=== PATIENT | female | born 1985 | race Caucasian/White ===

== ENCOUNTER 2019-04-11 17:51 | Emergency (ER) | payer OTHER, SELFPAY | END 2019-04-11 18:27 | disposition left against medical advice (07) | LOC: EXPCOLL 18:33 | PROVIDERS: Emergency Provider Registered Nurse | DX: Z53.21 Procedure and treatment not carried out due to patient leaving prior to being seen by health care provider (principal) | CPT/HCPCS: 99199 ==

== ENCOUNTER 2019-12-20 22:28 | Emergency (ER) | payer OTHER, SELFPAY ==
[2019-12-20 22:31] VITALS: BP 187/113; PULSE 105; RESP 20; TEMP 36.3; O2SAT 98
[2019-12-21] MEDS: HYDROcodone/acetaminophen (*CRX) 5-325 MG TABLET 1 TAB PO (00:03)
[2019-12-21] MEDS: DOXYCYCLINE HYCLATE 100 MG TABLET PO (01:18)
--- NOTE | 2019-12-21 01:26 | ED.SKABFB ---
HPI - Skin/Abscess/Foreign Bdy General Chief complaint: Skin/Abscess/Foreign Body Stated complaint: abcesses Time Seen by Provider: 12/20/19 23:27 History of Present Illness HPI narrative: Patient is a 34-year-old female who presents ER with left inguinal region abscess pain. Patient has history of cystic hidradenitis. She has had increased pain over the last 2 to 3 days. She typically has persistent drainage from multiple areas due to the severity of her cystic hidradenitis. At 1 point the past patient had been hospitalized for 4 months with wound vacs related to this. 2 weeks ago patient was supposed to have surgery to remove some of the cysts but she became Covid positive so the surgery has been delayed. This was supposed to be performed at [facility]. Patient has no fever or chills or sweats. No additional complaints. Related Data Allergies Allergy/AdvReac Type Severity Reaction Status Date / Time No Known Allergies Allergy Unknown Verified 12/21/19 00:21 Review of Systems Constitutional: Constitutional: Denies chills, Denies fever(s) and Denies weakness Integumentary/Breasts: Skin/Breast: Denies pruritus and Denies erythema Comments: multiple cystic abscess PMFSH Past Medical History Medical History (Updated 12/21/19 @ 01:39 by Chris Frank MD) Hidradenitis suppurativa Hypertension Polycystic ovarian syndrome Surgical History Surgical History (Updated 12/21/19 @ 01:31 by Chris Frank MD) H/O skin graft Multiple cyst excision which required additional skin grafting due to wound. Social History Social History (Updated 12/21/19 @ 01:31 by Chris Frank MD) Smoking status: Never smoker Exam Narrative: Exam Narrative: GENERAL: Well-appearing, morbidly obese, and in no acute distress. HEAD: Normocephalic, atraumatic. EXTREMITIES: Normal range of motion. No edema. SKIN: Warm, dry, no rash. NEURO: Alert and oriented x3. PSYCH: Normal mood and affect. Course Course Emergency Course: Significant drainage from each site. Packing placed. Doxycycline ordered for here. Discharge home. Recommend follow-up with her surgeon. Vital Signs Vital signs: Vital Signs Temperature 97.3 F L 12/20/19 22:31 Pulse Rate 105 H 12/20/19 22:31 Respiratory Rate 20 12/20/19 22:31 Blood Pressure 187/113 H 12/20/19 22:31 Pulse Oximetry 98 12/20/19 22:31 Temperature 97.3 F L 12/20/19 22:31 Pulse Rate 105 H 12/20/19 22:31 Respiratory Rate 20 12/20/19 22:31 Blood Pressure 187/113 H 12/20/19 22:31 Pulse Oximetry 98 12/20/19 22:31 Procedures Abscess I/D other: Date of Incision: 12/21/19 Time of Incision: 00:45 Side (if applicable): left (inguinal fold) Local Anesthetic: lidocaine 1% and with epi Technique: incised with #11 blade Packing used?: iodoform I&D Results: Pus and Blood Complications: pain inguinal fold: Date of Incision: 12/21/19 Time of Incision: 00:50 Side (if applicable): left Local Anesthetic: lidocaine 1% and with epi Technique: incised with #11 blade Packing used?: iodoform I&D Results: Pus and Blood Complications: pain Discharge Plan Discharge Clinical Impression: Abscess of skin or subcutaneous tissue Patient Disposition: Home, Self-Care Condition: Stable Instructions: Antibiotic Form, Abscess (ED) Additional Instructions: Return the ER if you have chest pain or shortness of breath, you cannot keep down food or water, you have fever over 100.4 ?F, you have additional concerns. Prescriptions: New doxycycline hyclate 100 mg tablet 100 mg PO BID Qty: 14 RF: 0 Follow-up/Referrals: PHYSICIAN NOT ON STAFF,NONSTAFF [Primary Care Provider] -
== END 2019-12-21 01:51 | disposition home or self-care (01) ==
PROVIDERS: Emergency Provider Emergency Medicine
DX: L02.214 Cutaneous abscess of groin (principal); Z86.19 Personal history of other infectious and parasitic diseases; I10 Essential (primary) hypertension; E28.2 Polycystic ovarian syndrome
CPT/HCPCS: 10061; 99283; A9270

== ENCOUNTER 2020-03-29 09:44 | Emergency (ER) | payer OTHER, SELFPAY ==
--- NOTE | ~2020-03-29 | CT_ITS ---
EXAMINATION: CT pelvis w con DATE: 03/29/2020 12:09 INDICATION: Left groin abscess. TECHNIQUE: Computed tomography (CT) of the pelvis was performed with 100 mL Omnipaque 350 intravenous contrast. Automated exposure control and iterative reconstruction technique were employed. The dose- length product was 1256.39 mGy-cm. COMPARISON: None FINDINGS: There are cysts in left kidney measuring up to 2.7 cm. There is an intrauterine device in e xpected position. There are no dilated loops of bowel. There is mild left inguinal lymphadenopathy, l ikely reactive. There is no free intraperitoneal fluid. There is subcutaneous fat stranding in the lo w abdomen, consistent with inflammation versus scarring. There is subcutaneous fat stranding under th e pannus on the left, consistent with inflammation. There is subcutaneous fat stranding in proximal l eft thigh posteromedially, consistent with inflammation. No abscess. There is mild lumbar spondylosis . IMPRESSION: 1. Multifocal subcutaneous inflammation. No abscess. Reviewed, dictated and finalized at location A. TECHNICIAN
[2020-03-29 09:49] VITALS: BP 185/76; PULSE 86; RESP 18; TEMP 36.9; O2SAT 100
--- NOTE | 2020-03-29 10:59 | ED.WOUNDLAC ---
HPI - Wound/Laceration General Chief Complaint: Wound/Laceration Stated Complaint: boils on thigh Time Seen by Provider: 03/29/20 10:09 Source: patient Mode of arrival: ambulatory Limitations: no limitations History of Present Illness HPI narrative: This is a 34 year old female that presents to the ER for abscess to the left thigh present for about a week. Reports history of HS for which she sees a Analysis Reporting Developer. Reports swelling and pain to an area in the left inner thigh. Reports some drainage from the area. Denies fever. Related Data Allergies Allergy/AdvReac Type Severity Reaction Status Date / Time No Known Allergies Allergy Unknown Verified 03/29/20 09:53 Review of Systems Review of Systems: Narrative: CONSTITUTIONAL: Denies fever SKIN: Reports abscess All systems reviewed & are unremarkable except as noted in HPI and below PMFSH Past Medical History Medical History (Updated 03/29/20 @ 12:40 by Melania Rodriguez PA-C) Hidradenitis suppurativa Hypertension Polycystic ovarian syndrome Surgical History Surgical History (Updated 12/21/19 @ 01:31 by Chris Frank MD) H/O skin graft Multiple cyst excision which required additional skin grafting due to wound. Social History Social History (Updated 12/21/19 @ 01:31 by Chris Frank MD) Smoking status: Never smoker Exam Narrative: Exam Narrative: GENERAL: Well-appearing, obese, and in no acute distress. HEAD: Normocephalic, atraumatic. EYES: EOMI. ABDOMEN: Soft, nontender, nondistended. The pannus has multiple areas of scarring and tracts from previous abscesses. Left side of the abdomen below the pannus with two small areas that are spontaneously draining, no surrounding cellulitis. Left groin with moderate area of erythema and edema with a couple spots that are actively draining with expression EXTREMITIES: Normal range of motion. No edema. SKIN: Warm, dry, no rash. NEURO: No focal deficits. Alert and oriented x3. PSYCH: Normal mood and affect Course Vital Signs Vital signs: Vital Signs Temperature 98.5 F 03/29/20 09:49 Pulse Rate 86 03/29/20 09:49 Respiratory Rate 18 03/29/20 09:49 Blood Pressure 185/76 H 03/29/20 09:49 Pulse Oximetry 100 03/29/20 09:49 Temperature 98.5 F 03/29/20 09:49 Pulse Rate 86 03/29/20 09:49 Respiratory Rate 18 03/29/20 09:49 Blood Pressure 185/76 H 03/29/20 09:49 Pulse Oximetry 100 03/29/20 09:49 MDM - Wound/Laceration MDM Narrative Medical decision making narrative: Patient presents to the emergency department with history of hidradenitis suppurativa with an area to the left thigh of swelling and pain. She is afebrile and nontoxic-appearing. Blood pressure elevated on arrival, likely at least partially due to pain. Patient reports she has been taking her blood pressure medications as prescribed. She is asymptomatic. CBC is without concerning findings. CRP mildly elevated to 2.1. ESR is normal. Metabolic panel with elevation in blood glucose to 281. I did send a hemoglobin A1c which was elevated to 9.4. This would be a new diagnosis of diabetes for the patient. CT scan of the pelvis shows multifocal subcutaneous inflammation, no abscess. Patient reports she had been taking Doxycycline over the last 5 days without improvement. Will be switched to Bactrim. I did speak to her Analysis Reporting Developer solar energy consultant and designer who will follow up in clinic in the next couple of days. Patient will also be started on Metformin and was instructed on the importance of follow up with her PCP for diabetes as well as her blood pressure. She was given warnings to return to the ER Lab Data Attestation: I reviewed the patient's lab results. Result diagrams: 03/29/20 11:04 03/29/20 11:04 Labs: Lab Results 03/29/20 03/29/20 03/29/20 Range/Units 11:04 11:04 11:04 WBC 7.7 (4.5-10.0) K/mm3 RBC 5.55 H (4.2-5.4) M/mm3 Hgb 14.1 (12.0-15.0) g/dL Hct 43.5 (37.0-47.0) %
[2020-03-29 11:10] LABS: Basophils Absolute Auto 0.1 K/mm3 (0.0-0.1); Basophils Percent Auto 0.8 % (0.2-1.2); Eosinophils Absolute Auto 0.3 K/mm3 (0-0.3); Eosinophils Percent Auto 3.9 % (0-4.4); Hematocrit 43.5 % (37.0-47.0); Hemoglobin 14.1 g/dL (12.0-15.0); Immature Granulocyte Absolute 0.05 K/mm3 (0.00-0.031); Immature Granulocyte Percent A 0.7 % (0-0.5); Lymphocytes Percent Auto 26.1 % (18.3-44.2); Mean Corpuscular HGB Conc 32.4 g/dl (32-36); Mean Corpuscular Hemoglobin 25.4 pg (26-34); Mean Corpuscular Volume 78.4 fl (80-100); Mean Platelet Volume 8.3 fl (7.4-10.4); Monocytes Absolute Auto 0.5 K/mm3 (0.1-0.6); Neutrophils Absolute Auto 4.7 K/mm3 (1.3-6.7); Neutrophils Percent Auto 61.5 % (45.5-73.1); Platelet Count Result 247 k/mm3 (150-375); Red Blood Count 5.55 M/mm3 (4.2-5.4); Red Cell Distribution Width 15.9 % (11.5-14.5); White Blood Count 7.7 K/mm3 (4.5-10.0)
[2020-03-29] MEDS: KETOROLAC 30 MG/ML VIAL (*BKC) IV PUSH (11:15)
[2020-03-29 11:35] LABS: Erythrocyte Sedimentation Rate 16 mm/hr (0-20)
[2020-03-29 11:44] LABS: Anion Gap 4 mmol/L (8-16); Blood Urea Nitrogen 5 mg/dL (7-17); Calcium 8.4 mg/dL (8.4-10.2); Carbon Dioxide 28 mmol/L (22-30); Chloride 102 mmol/L (98-107); Estimated CRCL calculation 186 ml/min; Estimated Glomerular Filt Rate > 60; Glucose 281 mg/dL (65-105); Potassium 4.1 mmol/L (3.4-5.0); Sodium 134 mmol/L (137-145)
[2020-03-29 12:01] LABS: CRP 2.1 mg/dL (<1.0)
[2020-03-29 12:02] LABS: Hemoglobin A1C 9.4 % (<5.7)
== END 2020-03-29 12:58 | disposition home or self-care (01) ==
PROVIDERS: Physician Assistant; Emergency Provider Emergency Medicine
DX: L73.2 Hidradenitis suppurativa (principal); E11.9 Type 2 diabetes mellitus without complications; I10 Essential (primary) hypertension; E28.2 Polycystic ovarian syndrome
CPT/HCPCS: 36415; 72193; 80048; 81025; 83036; 85025; 85652; 86140; 87070; 87077; 87147; 87186; 87205; 96374; 99284; J1885; Q9967

== ENCOUNTER 2020-08-10 19:40 | Emergency (ER) | payer OTHER, SELFPAY ==
[2020-08-10 19:46] VITALS: BP 159/106; PULSE 98; RESP 20; TEMP 36.8; O2SAT 98
--- NOTE | 2020-08-10 20:00 | ED.SKABFB ---
HPI - Skin/Abscess/Foreign Bdy General Chief complaint: Skin/Abscess/Foreign Body Stated complaint: Infected finger Time Seen by Provider: 08/10/20 19:55 History of Present Illness HPI narrative: 35-year-old female presents to [facility] with complaints of swelling and redness around the nail the distal aspect left fourth finger. Denies having a manicure, does not bite nails. Has full range of motion. Tenderness to the lateral aspect. Related Data Home Medications Medication Instructions Recorded Confirmed lisinopril-hydrochlorothiazide 1 tablet PO DAILY 08/10/20 08/10/20 Allergies Allergy/AdvReac Type Severity Reaction Status Date / Time No Known Allergies Allergy Unknown Verified 08/10/20 19:53 Review of Systems Review of Systems: All systems reviewed & are unremarkable except as noted in HPI and below Constitutional: Constitutional: Reports no additional constitutional complaints, Denies chills and Denies fever(s) Cardiovascular: Cardiovascular: Reports no additional cardiovascular complaints and Denies chest pain Respiratory: Respiratory: Reports no additional respiratory complaints, Denies cough and Denies dyspnea Musculoskeletal: Musculoskeletal: Reports no additional musculoskeletal complaints Integumentary/Breasts: Skin/Breast: Reports as per HPI and Reports erythema (Lateral aspect left ring finger with swelling, fluctuant area, pus noted) Neurologic: Reports system reviewed and no additional complaints, except as documented Psychiatric: Psychiatric: Reports no additional psychiatric complaints Allergic/Immunologic: Allergic/Immunologic: Reports no additional allergic/immunologic complaints [facility] Past Medical History Medical History (Updated 08/10/20 @ 20:02 by Tanya Iraheta) Hidradenitis suppurativa Hypertension Polycystic ovarian syndrome Surgical History Surgical History H/O skin graft Multiple cyst excision which required additional skin grafting due to wound. Social History Social History Smoking status: Never smoker Comments Reviewed Exam Const: General: healthy appearing, no acute distress and alert Nutritional Appearance: well nourished and obese morbidly obese Orientation/consciousness: patient oriented x3 Limitations: no limitations HENMT: Head: normal to inspection Neck: Neck: normal visual inspection, no lymphadenopathy and no meningeal signs Chest: Chest palpation & inspection: normal inspection of the chest Resp: Effort & Inspection: normal respiratory effort and no use of accessory muscles Auscultation: clear to auscultation bilaterally, no crackles, no rales, no rhonchi and no wheezes Cardio: Rate: regular rate Rhythm: regular rhythm : General: Yes no CVA tenderness Skin: General skin exam: normal color Other: Redness, swelling distal aspect left ring finger lateral Neuro: General: patient oriented x3, moves all extremities, no meningeal signs and no focal motor deficits Speech: normal speech Gait exam (Neuro): Normal gait present Extrem: General: normal to inspection and no pedal edema Psych: Appearance: grossly normal and well kempt Mental Status: mental status grossly normal Affect: normal affect Attitude: cooperative Thought content: Yes Normal thought content present Course Course Emergency Course: Discharge instructions reviewed with patient, as well as provided in writing per nursing staff. The instructions also include specific and strict return/GO TO THE ER as well as f/u information. All questions have been answered, and the patient deny any further questions with discharge and discharge plan. Vital Signs Vital signs: Vital Signs Temperature 98.2 F 08/10/20 19:46 Pulse Rate 98 08/10/20 19:46 Respiratory Rate 20 08/10/20 19:46 Blood Pressure 159/106 H 08/10/20 19:46 Pulse Oximetry 98 08/10/20 19:46 Temperature 98
== END 2020-08-10 20:23 | disposition home or self-care (01) ==
PROVIDERS: Emergency Provider Nurse Practitioner
DX: L03.012 Cellulitis of left finger (principal); I10 Essential (primary) hypertension; E28.2 Polycystic ovarian syndrome
CPT/HCPCS: 26010; 87070; 87075; 87076; 87147; 87185; 87186; 87205; 99213; G0463

== ENCOUNTER 2020-09-24 12:22 | Emergency (ER) | payer OTHER, SELFPAY ==
[2020-09-24 12:34] VITALS: BP 150/101; PULSE 112; RESP 20; TEMP 37.6; O2SAT 99
--- NOTE | 2020-09-24 13:03 | ED.NAVMDI ---
HPI - Nausea/Vomiting/Diarrhea General Chief complaint: Nausea/Vomiting/Diarrhea Stated complaint: abd pain Source: patient and RN notes reviewed Mode of arrival: ambulatory History of Present Illness HPI Narrative: This is a 35-year-old female who presented to urgent care with complaints of nausea vomiting and diarrhea that started yesterday. Patient notes that she did take Imodium at home for her diarrhea. Her blood pressure is elevated she notes that she takes her medication at night has been unable to keep her medication down due to her nausea and vomiting. She has been vaccinated he denies any exposure to Covid. The patient denies SOB, CP, palpitation, extremity numbness, lightheadedness, dizziness, constipation, diarrhea, abdominal pain, chills, or fever. Related Data Home Medications Medication Instructions Recorded Confirmed lisinopril-hydrochlorothiazide 1 tablet PO DAILY 08/10/20 08/10/20 Allergies Allergy/AdvReac Type Severity Reaction Status Date / Time No Known Allergies Allergy Unknown Verified 08/10/20 19:53 Review of Systems Review of Systems: A 14 organ system Review of Systems was performed and pertinent positives included in the HPI, otherwise remaining ROS is negative. COUNTS INCLUDE 234 BEDS AT THE [facility] Past Medical History Medical History (Updated 09/24/20 @ 13:02 by ZINA Navarro) Hidradenitis suppurativa Hypertension Polycystic ovarian syndrome Surgical History Surgical History H/O skin graft Multiple cyst excision which required additional skin grafting due to wound. Family History Family History (Updated 09/24/20 @ 13:04 by ZINA Navarro) Other Family history non-contributory Social History Social History Smoking status: Never smoker Exam Narrative: GENERAL: Morbidly obese, in no apparent distress. HEAD: normocephalic, atraumatic. EYES: PERRL. Sclera clear/white. Vision is grossly intact. EARS: External ears normal, auditory canals clear and without drainage, TMs normal without perforation. Hearing grossly intact. NOSE: External nose normal with no obvious nasal discharge, nares without redness, no rhinorrhea. THROAT: Mucous membranes moist, posterior pharynx clear. NECK: Neck supple, non-tender without lymphadenopathy, masses or thyromegaly. CARDIOVASCULAR: Regular rate and rhythm without murmurs, gallops, or rubs. RESPIRATORY: Clear to auscultation. Breath sounds equal bilaterally. No wheezes, rales, or rhonchi. GASTROINTESTINAL: Abdomen soft, non-tender, nondistended. Bowel sounds are active. No hepato-splenomegaly, or palpable masses. No guarding. SKIN: warm, intact with no suspicious lesions or rash, good texture and turgor. NEURO: awake, alert, and oriented to person, place and time. There were no obvious focal neurologic abnormalities. Steady gait EXTREMITIES: Normal range of motion. No edema. No calf tenderness. Negative Homans sign bilaterally. BACK: Nontender without deformity or crepitance. No flank tenderness. Course Course Emergency Course: Patient will discharge home with Zofran instructed to use Imodium stay hydrated to prevent dehydration Vital Signs Vital signs: Vital Signs Temperature 99.7 F H 09/24/20 12:34 Pulse Rate 112 H 09/24/20 12:34 Respiratory Rate 20 09/24/20 12:34 Blood Pressure 150/101 H 09/24/20 12:34 Pulse Oximetry 99 09/24/20 12:34 Temperature 99.7 F H 09/24/20 12:34 Pulse Rate 112 H 09/24/20 12:34 Respiratory Rate 20 09/24/20 12:34 Blood Pressure 150/101 H 09/24/20 12:34 Pulse Oximetry 99 09/24/20 12:34 MDM - Nausea/Vomiting/Diarrhea Differential Diagnosis Differential diagnosis: Likely traveler's diarrhea, food poisoning, gastroenteritis and other (Viral gastroenteritis) Discharge Plan Discharge Clinical Impression: Gastroenteritis Patient Disposition: Home, Self-Care Condition: Stable Instruct
== END 2020-09-24 13:19 | disposition home or self-care (01) ==
PROVIDERS: Emergency Provider Nurse Practitioner
DX: K52.9 Noninfective gastroenteritis and colitis, unspecified (principal); I10 Essential (primary) hypertension; E28.2 Polycystic ovarian syndrome
CPT/HCPCS: 99213; G0463

== ENCOUNTER 2021-06-14 02:15 | Emergency (ER) | payer OTHER, SELFPAY ==
[2021-06-14] VITALS (7 sets, daily range): BP systolic 119–138; BP diastolic 79–86; PULSE 92–108; RESP 16–22; TEMP 37.1; O2SAT 85–100
--- NOTE | ~2021-06-14 | XR_ITS ---
EXAMINATION: XR chest 2V DATE: 06/14/2021 02:58 INDICATION: Chest pain. Chest pressure. TECHNIQUE: Frontal and lateral views of the chest were obtained. COMPARISON: Chest 2 views 04/04/2011 FINDINGS: A calcified left lung nodule is consistent with old granulomatous disease. No pleural effus ion or pneumothorax. The heart size is normal. IMPRESSION: 1. No acute cardiopulmonary disease. Reviewed, dictated and finalized at location A.
--- NOTE | 2021-06-14 02:20 | ECG_ITS ---
Measurements Intervals [place] Rate: 103 P: 0 NE: 114 QRS: 57 QRSD: 105 T: 11 QT: 355 QTc: 466 Interpretive Statements SINUS TACHYCARDIA WITH SHORT NE INTERVAL SMALL NONDIAGNOSTIC INFERIOR Q-WAVES OTHERWISE NORMAL ECG Electronically Signed On 06-14-2021 16:17:48 CDT by Caleb Roach M.D.
[2021-06-14 02:30] LABS: Basophils Absolute Auto 0.1 K/mm3 (0.0-0.1); Eosinophils Absolute Auto 0.4 K/mm3 (0-0.3); Eosinophils Percent Auto 3.6 % (0-4.4); Hematocrit 39.5 % (37.0-47.0); Hemoglobin 12.6 g/dL (12.0-15.0); Immature Granulocyte Absolute 0.14 K/mm3 (0.00-0.031); Immature Granulocyte Percent A 1.4 % (0-0.5); Lymphocytes Absolute Auto 3.26 K/mm3 (0.9-3.2); Lymphocytes Percent Auto 32.2 % (18.3-44.2); Mean Corpuscular HGB Conc 31.9 g/dl (32-36); Mean Corpuscular Hemoglobin 26.3 pg (26-34); Mean Corpuscular Volume 82.5 fl (80-100); Mean Platelet Volume 8.5 fl (7.4-10.4); Monocytes Absolute Auto 0.8 K/mm3 (0.1-0.6); Monocytes Percent Auto 7.7 % (2.6-8.5); Neutrophils Absolute Auto 5.5 K/mm3 (1.3-6.7); Neutrophils Percent Auto 54.1 % (45.5-73.1); Platelet Count Result 308 k/mm3 (150-375); Red Blood Count 4.79 M/mm3 (4.2-5.4); Red Cell Distribution Width 16.8 % (11.5-14.5); White Blood Count 10.1 K/mm3 (4.5-10.0)
[2021-06-14 02:42] LABS: Partial Thromboplastin Time 28.5 SECONDS (22.3-36.8); Prothrombin Time 13.1 Seconds (11.1-14.7)
[2021-06-14 02:50] LABS: Alanine Aminotransferase 58 U/L (4-35); Albumin Level 3.9 g/dL (3.5-5.1); Alkaline Phosphatase 43 U/L (38-126); Anion Gap 8 mmol/L (8-16); Aspartate Amino Transferase 58 U/L (14-36); Bilirubin,Total 0.7 mg/dL (0.2-1.3); Blood Urea Nitrogen 13 mg/dL (7-17); Calcium 8.7 mg/dL (8.4-10.2); Carbon Dioxide 29 mmol/L (22-30); Chloride 97 mmol/L (98-107); Estimated CRCL calculation 147 ml/min; Estimated Glomerular Filt Rate > 60; Glucose 337 mg/dL (65-110); Lipase 487 U/L (23-300); Potassium 3.9 mmol/L (3.4-5.0); Sodium 134 mmol/L (137-145)
[2021-06-14 02:54] LABS: Troponin I < 0.012 ng/mL (0.000-0.034)
[2021-06-14 05:46] LABS: Troponin I < 0.012 ng/mL (0.000-0.034)
--- NOTE | 2021-06-14 06:41 | ED.CHESTPAIN ---
HPI - Chest Pain General Chief Complaint: Chest Pain Stated Complaint: CHEST PAIN, N/V Time Seen by Provider: 06/14/21 02:36 History of Present Illness HPI narrative: Patient is a 36-year-old female who presents ER with chest pain. Central and sharp. Began at midnight. Associated with some nausea and vomiting. Thinks it may be related to the fact that she has some pain at her left labia related to her cystic hidradenitis. She reports some drainage from the area. No fevers or chills or sweats. Related Data Home Medications Medication Instructions Recorded Confirmed lisinopril-hydrochlorothiazide 1 tablet PO DAILY 08/10/20 08/10/20 Allergies Allergy/AdvReac Type Severity Reaction Status Date / Time No Known Allergies Allergy Unknown Verified 08/10/20 19:53 Review of Systems Review of Systems: All systems reviewed & are unremarkable except as noted in HPI and below Constitutional: Constitutional: Denies chills, Denies fever(s) and Denies weakness ENT: Denies nasal congestion and Denies sore throat Cardiovascular: Cardiovascular: Reports chest pain, Denies rapid heart rate and Denies radiating jaw, neck or arm pain Respiratory: Respiratory: Denies cough, Denies dyspnea and Denies wheezing Gastrointestinal: Gastrointestinal: Denies abdominal pain, Reports nausea and Reports vomiting Integumentary/Breasts: Comments: draining cyst PMFSH Past Medical History Medical History (Updated 06/14/21 @ 06:48 by Chris Frank MD) Hidradenitis suppurativa Hypertension Polycystic ovarian syndrome Surgical History Surgical History H/O skin graft Multiple cyst excision which required additional skin grafting due to wound. Family History Family History (Updated 09/24/20 @ 13:04 by ZINA Navarro) Other Family history non-contributory Social History Social History Smoking status: Never smoker Exam Narrative: GENERAL: Well-appearing, morbidly obese, and in no acute distress. HEAD: Normocephalic, atraumatic. ENT: Mucous membranes moist. CHEST: Clear to auscultation. No respiratory distress. HEART: Regular rate and rhythm. Normal peripheral pulses. : Area where there is a draining cyst left labia. No surrounding cellulitis or drainage at this time. EXTREMITIES: Normal range of motion. No edema. SKIN: Warm, dry, no rash. NEURO: Alert and oriented x3. PSYCH: Normal mood and affect. Course Course Emergency Course: No chest pain. Tropes negative x2. No need for intervention regarding her cyst. Vital Signs Vital signs: Vital Signs Temperature 98.7 F 06/14/21 02:09 Pulse Rate 105 H 06/14/21 02:09 Respiratory Rate 19 06/14/21 02:09 Blood Pressure 119/79 06/14/21 02:09 Pulse Oximetry 97 06/14/21 02:09 Temperature 98.7 F 06/14/21 02:09 Pulse Rate 92 06/14/21 06:09 Respiratory Rate 19 06/14/21 06:09 Blood Pressure 135/86 06/14/21 04:51 Pulse Oximetry 96 06/14/21 06:09 MDM - Chest Pain Lab Data Result diagrams: 06/14/21 02:21 06/14/21 02:21 Labs: Lab Results 06/14/21 06/14/21 06/14/21 Range/Units 02:21 02:21 02:21 WBC 10.1 H (4.5-10.0) K/mm3 RBC 4.79 (4.2-5.4) M/mm3 Hgb 12.6 (12.0-15.0) g/dL Hct 39.5 (37.0-47.0) % MCV 82.5 (80-100) fl MCH 26.3 (26-34) pg MCHC 31.9 L (32-36) g/dl RDW 16.8 H (11.5-14.5) % Plt Count 308 (150-375) k/mm3 MPV 8.5 (7.4-10.4) fl Immature Gran % (Auto) 1.4 H (0-0.5) % Neut % (Auto) 54.1 (45.5-73.1) % Lymph % (Auto) 32.2 (18.3-44.2) % [place] % (Auto) 7.7 (2.6-8.5) % Eos % (Auto) 3.6 (0-4.4) % Baso % (Auto) 1.0 (0.2-1.2) % Lymph # (Auto) 3.26 H (0.9-3.2) K/mm3 [place] # (Auto) 0.8 H (0.1-0.6) K/mm3 Eos # (Auto) 0.4 H (0-0.3) K/mm3 Baso # (Auto) 0.1 (0.0-0.1) K/mm3 Abs Immat Gran (auto)
== END 2021-06-14 06:58 | disposition home or self-care (01) ==
PROVIDERS: Emergency Provider Emergency Medicine
DX: R07.89 Other chest pain (principal); I10 Essential (primary) hypertension; E28.2 Polycystic ovarian syndrome; R94.31 Abnormal electrocardiogram [ECG] [EKG]; R00.0 Tachycardia, unspecified
CPT/HCPCS: 36415; 71046; 80053; 83690; 84484; 85025; 85610; 85730; 93005; 99284

== ENCOUNTER 2021-12-20 17:59 | Emergency (ER) | payer OTHER, SELFPAY ==
[2021-12-20 18:14] VITALS: BP 154/104; PULSE 99; RESP 16; TEMP 37.4; O2SAT 97
[2021-12-20 18:17] VITALS: BP 154/104; PULSE 99; RESP 16; TEMP 37.4; O2SAT 97
--- NOTE | 2021-12-20 18:32 | ED.URI ---
HPI - URI/Sore Throat General Chief Complaint: Upper Respiratory Infection Stated Complaint: Sinus Time Seen by Provider: 12/20/21 18:45 Source: patient and RN notes reviewed Mode of arrival: ambulatory Limitations: no limitations History of Present Illness HPI Narrative: 36-year-old female presents to the [facility] with complaints of sinus congestion for almost 1 week. Denies any other symptoms. Denies fevers. Patient denies cough, body aches. Related Data Home Medications Medication Instructions Recorded Confirmed lisinopril 20 1 tablet PO DAILY 08/10/20 08/10/20 mg-hydrochlorothiazide 12.5 mg tablet Allergies Allergy/AdvReac Type Severity Reaction Status Date / Time No Known Allergies Allergy Unknown Verified 12/20/21 18:10 Review of Systems Review of Systems: All systems reviewed & are unremarkable except as noted in HPI and below Constitutional: Constitutional: Reports no additional constitutional complaints, Denies chills and Denies fever(s) Eyes: Eyes: Reports no additional eye complaints ENT: Reports as per HPI and Reports nasal congestion Cardiovascular: Cardiovascular: Reports no additional cardiovascular complaints Respiratory: Respiratory: Reports no additional respiratory complaints Gastrointestinal: Gastrointestinal: Reports no additional gastrointestinal complaints Musculoskeletal: Musculoskeletal: Reports no additional musculoskeletal complaints Integumentary/Breasts: Skin/Breast: Reports system reviewed and no additional complaints, except as docu Neurologic: Reports system reviewed and no additional complaints, except as documented Psychiatric: Psychiatric: Reports no additional psychiatric complaints Allergic/Immunologic: Allergic/Immunologic: Reports no additional allergic/immunologic complaints [facility] Past Medical History Medical History Hidradenitis suppurativa Hypertension Polycystic ovarian syndrome Surgical History Surgical History H/O skin graft Multiple cyst excision which required additional skin grafting due to wound. Family History Family History Other Family history non-contributory Social History Social History Smoking status: Never smoker Comments At the time of my signature, I reviewed and agree with the nursing past medical, surgical, social, and family history. There is no relevant family history pertinent to the patient complaint. Exam Const: General: healthy appearing, no acute distress, alert and well nourished Nutritional Appearance: well nourished and obese morbidly obese Orientation/consciousness: patient oriented x3 Limitations: no limitations HENMT: Head: normal to inspection Ears: external ears normal, TM's normal bilaterally and EAC's normal Face/Nose/Sinus: Normal external nose present and Normal nares present Face and sinus: normal facial exam and sinuses nontender Mouth: Yes Normal oral and palatal mucosa present, Yes lip normal and Yes moist mucous membranes Throat: posterior oropharynx normal and uvula midline Eyes: General: appearance normal, both eyes and all related structures Conjunctivae: conjunctivae normal Pupils: Equal, round and reactive pupils present Neck: Neck: normal visual inspection, no lymphadenopathy and no meningeal signs Chest: Chest palpation & inspection: normal inspection of the chest Resp: Effort & Inspection: normal respiratory effort and no use of accessory muscles Auscultation: clear to auscultation bilaterally, no crackles, no rales, no rhonchi and no wheezes Cardio: Rate: regular rate Rhythm: regular rhythm Skin: General skin exam: normal color Rashes: no rashes Wounds: no wounds Neuro: General: patient oriented x3, moves all extremities, no meningeal signs and no f
== END 2021-12-20 19:05 | disposition home or self-care (01) ==
PROVIDERS: Emergency Provider Nurse Practitioner; PCP Hospitalist
DX: J01.80 Other acute sinusitis (principal); I10 Essential (primary) hypertension
CPT/HCPCS: 87804; 99213; G0463

== ENCOUNTER 2023-05-17 19:47 | Emergency (ER) | payer BC, SELFPAY ==
--- NOTE | 2023-05-17 19:57 | ED.GENADULT ---
HPI - General Adult General Chief complaint: Skin/Abscess/Foreign Body Stated complaint: abcess Time Seen by Provider: 05/17/23 19:56 Source: patient Mode of arrival: ambulatory Limitations: no limitations History of Present Illness HPI narrative: This is a 37-year-old female who presents to the ED with chief complaint of possible abscesses to the lower abdomen. Reports history of hidradenitis suppurativa and has had to have abscesses drained the past. Reports she was seen a month ago and started on antibiotics. She took a full course of doxycycline with minimal relief. She has seen surgery in the past for HS. States the left lower abdomen/ groin abscess is worse, but there is pain right as well. Denies fevers, chills, nausea, vomiting red streaking or other rash. Related Data Home Medications Medication Instructions Recorded Confirmed lisinopril 20 1 tablet PO DAILY 08/10/20 08/10/20 mg-hydrochlorothiazide 12.5 mg tablet Allergies Allergy/AdvReac Type Severity Reaction Status Date / Time No Known Allergies Allergy Unknown Verified 05/17/23 20:01 Review of Systems Review of Systems: All systems as dictated in [facility] Past Medical History Medical History Hidradenitis suppurativa Hypertension Polycystic ovarian syndrome Surgical History Surgical History H/O skin graft Multiple cyst excision which required additional skin grafting due to wound. Family History Family History Other Family history non-contributory Social History Social History Smoking status: Never smoker Exam Narrative: GENERAL: Well-appearing, well-nourished, and in no acute distress. morbidly obese. HEAD: Normocephalic, atraumatic. EYES: PERRLA and EOMI. ENT: Nares clear, no rhinorrhea or epistaxis. Mucous membranes moist. Oropharynx without tonsillar hypertrophy exudate or other lesions. NECK: Supple. No adenopathy or masses. CHEST: No respiratory distress. Clear to auscultation. No wheezes rales or rhonchi HEART: Regular rate and rhythm. No murmur heard. Normal peripheral pulses. ABDOMEN: Soft, nontender, nondistended, normal active bowel sounds. MSK: Normal range of motion. No edema. SKIN: Focal erythematous fluid collection noted to the left pannus. Minimal surrounding erythema. There is an area purulent drainage noted. Other focal erythematous region to the right lateral abdomen near the pannus but no obvious fluid collection. No induration. No drainage. Small 2 cm x 1 cm area of open sore to the central pannus. No drainage, purulence or erythema noted. NEURO: Alert and oriented x3. No focal deficits. PSYCH: Normal mood and affect. Course Vital Signs Vital signs: Vital Signs Temperature 98.3 F 05/17/23 19:58 Pulse Rate 100 05/17/23 19:58 Respiratory Rate 20 05/17/23 19:58 Blood Pressure 162/114 H 05/17/23 19:58 Pulse Oximetry 98 05/17/23 19:58 Oxygen Delivery Room Air 05/17/23 19:58 Temperature 98.3 F 05/17/23 19:58 Pulse Rate 97 05/17/23 20:51 Respiratory Rate 20 05/17/23 20:51 Blood Pressure 152/99 H 05/17/23 20:51 Pulse Oximetry 97 05/17/23 20:51 Oxygen Delivery Room Air 05/17/23 19:58 Procedures Abscess I/D abdomen: Date of Incision: 05/17/23 Time of Incision: 20:50 Side (if applicable): right Sedation/analgesia: none Local Anesthetic: lidocaine 1% and with epi Amount of anesthesia used (mL): 2 Technique: incised with #11 blade Amount of fluid expressed (mL): 5 Irrigation: No Packing used?: none I&D Results: Pus and Blood Complications: pain Medical Decision Making MDM Narrative Medical decision making narrative: this is a
[2023-05-17 19:58] VITALS: BP 162/114; PULSE 100; RESP 20; TEMP 36.8; O2SAT 98
[2023-05-17] MEDS: LIDO 1%/EPINEPHRINE 1:100,000 20 ML VIAL (20:13)
[2023-05-17] MEDS: HYDROcodone/acetaminophen (*CRX) 5-325 MG TABLET 1 TAB PO (20:13)
[2023-05-17 20:51] VITALS: BP 152/99; PULSE 97; RESP 20; O2SAT 97
== END 2023-05-17 20:56 | disposition home or self-care (01) ==
PROVIDERS: Emergency Provider Physician Assistant; PCP Hospitalist
DX: L02.211 Cutaneous abscess of abdominal wall (principal); L73.2 Hidradenitis suppurativa; E28.2 Polycystic ovarian syndrome; I10 Essential (primary) hypertension
CPT/HCPCS: 10060; 99283; A9270

== ENCOUNTER 2024-08-20 18:45 | Emergency (ER) | payer OTHER, SELFPAY ==
[2024-08-20] VITALS (18 sets, daily range): BP systolic 185–239; BP diastolic 109–156; PULSE 100–128; RESP 14–35; TEMP 36.6–37.1; O2SAT 95–100
--- NOTE | ~2024-08-20 | XR_ITS ---
XR chest 2V Ordering provider: Crhis Frank MD History: 39 years Female with . htn and tachycardic IN TRIAGE . Comparison: None. FINDINGS: MEDIASTINUM: The cardiac silhouette is not enlarged. LUNGS: No infiltrates, effusions or pneumothorax. OTHER: No free air under the diaphragm. IMPRESSION: No acute cardiopulmonary pathology. Reviewed, dictated and finalized at location A.
--- OUTSIDE RECORDS SUMMARY | 2024-08-20 18:47 | XMS_ITS | Encounter Summary ---
Author Organization [facility] Address [address] [place] [address] Care Team Providers Care Wooden Tank Erector Name Role Phone Miguel A Kan MD Primary Care Provider [phone] Encounter Details Date Type Department Care Team (Latest Contact Info) Description 12/03/2005 Outpatient Historical [facility] Ballesteros Pilonidal Cyst with Abscess (Primary Dx) Social History Tobacco Use Types Packs/Day Years Used Date Smoking Tobacco: Never Assessed Comments Unknown Sex and Gender Information Value Date Recorded Sex Assigned at Not on file Legal Sex Female 4:18 AM ACCOUNT AUDITOR Gender Identity Not on file Sexual Orientation Not on file documented as of this encounter Plan of Treatment Not on file documented as of this encounter Procedures Procedure Name Priority Date/Time Associated Diagnosis Comments CBC WITH DIFFERENTIAL Routine 12/03/2005 9:49 AM CDT CBC WITH DIFFERENTIAL Routine 12/03/2005 9:49 AM CDT HCG QUANTITATIVE, BLOOD Routine 12/03/2005 9:49 AM CDT documented in this encounter Results * HCG QUANTITATIVE, BLOOD (12/03/2005 9:49 AM CDT) HCG QUANT, BLOOD <5 0 - 5 mIU/mL INTERFACE SYSTEM Comment: Result of 5 - 25 mIU/mL is indeterminant for , repeat of test recommemded in 48 hours. Reference Range: Gestational Age: 3 Weeks 5.8 - 71.2 mIU/mL 4 Weeks 9.5 - 750 mIU/mL 5 Weeks 217 - 7138 mIU/mL 6 Weeks 158 - 31,795 mIU/mL 7 Weeks 3697 - 163,563 mIU/mL 8 Weeks 32,065 - 149,571 mIU/mL 9 Weeks 63,803 - 151,410 mIU/mL 10 Weeks 46,509 - 186,977 mIU/mL 12 Weeks 27,832 - 210,612 mIU/mL 14 Weeks 13,950 - 62,530 mIU/mL 15 Weeks 12,039 - 70,971 mIU/mL 16 Weeks 9040 - 56,451 mIU/mL 17 Weeks 8175 - 55,868 mIU/mL 18 Weeks 8099 - 58,176 mIU/mL Heterophile antibodies and other interfering substances in the serum of some patients may cause a false-positive result in this assay. Before making a diagnosis of malignancy or etopic ,the result of this test should be confirmed with a urine HCG test and correlated with other clinical evidence. 12/03/2005 9:49 AM CDT [facility] CHEMISTRY ORDERABLES Final Resul t INTERFACE SYSTEM Refer to clinic/hospital department * (ABNORMAL) CBC WITH DIFFERENTIAL (12/03/2005 9:49 AM CDT) NEUTROPHILS 68 45 - 70 % INTERFAC E SYSTEM LYMPHOCYTES 20 16 - 45 % INTERFAC E SYSTEM MONOCYTES 10 3 - 13 % INTERFACE SYSTEM EOSINOPHILS 2 0 - 7 % INTERFAC E SYSTEM BASOPHILS 1 0 - 2 % INTERFACE SYSTEM NEUTROPHIL ABSOLUTE 8.71(H) 1.90 - 7.00 K/uL INTERFACE SYSTEM LYMPHOCYTE ABSOLUTE 2.58 0.70 - 4.50 K/uL INTERFACE SYSTEM MONOCYTE ABSOLUTE 1.30 0.10 - 1.30 K/uL INTERFACE SYSTEM EOSINOPHIL ABSOLUTE 0.25 0.00 - 0.70 K/uL INTERFACE SYSTEM BASOPHILS ABSOLUTE 0.07 0.00 - 0.20 K/uL INTERFACE SYSTEM 12/03/2005 9:49 AM CDT us Jeanne Goldman MD HEMATOLOGY ORDERABLES Final Re sult INTERFACE SYSTEM Refer to clinic/hospital department * (ABNORMAL) CBC WITH DIFFERENTIAL (12/03/2005 9:49 AM CDT) WBC 12.9(H) 4.0 - 9.8 K/uL INTERFACE SYSTEM RBC 4.59 3.90 - 4.90 M/uL INTERFACE SYSTEM HEMOGLOBIN 9.1(L) 11.8 - 14.8 g/dL INTERFACE SYSTEM HEMATOCRIT 30.6(L) 35.5 - 44.0 % INTERFACE SYSTEM MCV 66.7(L) 82.0 - 99.0 fL INTERFACE SYSTEM MCH 19.8(L) 27.2 - 32.6 pg INTERFACE SYSTEM MCHC 29.7(L) 31.5 - 35.5 % INTERFACE SYSTEM RDW 17.6(H) 11.5 - 14.5 % INTERFACE SYSTEM RDW-STDEV 42.9 37.1 - 48.7 fL INTERFACE SYSTEM PLATELETS 315 140 - 350 K/uL INTERFACE SYSTEM MPV 8.5(L) 9.3 - 12.4 fL INTERFACE SYSTEM 12/03/2005 9:49 AM CDT Jeanne Goldman MD HEMATOLOGY ORDERABLES Final Re sult Performing Organization Address City/[facility] Co de Phone Number INTERFACE SYSTEM Refer to clinic/hospital department documented in this encounter Visit Diagnoses Diagnosis Pilonidal cyst with abscess- Primary documented in this encounter Care Teams Wooden Tank Erector Relationship Specialty Start Date End Date Miguel A Kan MD [address] [place] [id number] PCP - General Internal Medicine 04/26/11 05/02/16 documented as of this encounter
--- OUTSIDE RECORDS SUMMARY | 2024-08-20 18:47 | XMS_ITS | Encounter Summary ---
Author Organization [facility] Address [address] [place] [address] Care Team Providers Care Boom Crane Operator Name Role Phone Miguel A Kan MD Primary Care Provider [phone] Encounter Details Date Type Department Care Team (Latest Contact Info) Description 04/28/2003 Outpatient Historical [facility], [address] [place] [address] [facility] [address] [place] [address] [facility] USE MEDICATN (Primary Dx) Social History Tobacco Use Types Packs/Day Years Used Date Smoking Tobacco: Never Assessed Comments Unknown Sex and Gender Information Value Date Recorded Sex Assigned at Not on file Legal Sex Female 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
--- OUTSIDE RECORDS SUMMARY | 2024-08-20 18:47 | XMS_ITS | Clinical Summary ---
Author Organization [facility] [employer] Address [facility] [place] [address] Care Team Providers Care Campus President Name Role Phone Unavailable Primary Care Provider Unavailabl e Source Comments [facility] [employer],non-owned Affiliates and Associated Physician Practices is amultiple site organization consisting of ambulatory clinics and hospital sitesin [place], [place], [place] and [place]. This disclosure is being madepursuant to the Care Everywhere program and may not contain all information available regarding this patient. Last updated 17.[facility] [employer] Allergies No known active allergies Medications * Be aware that medications may not be up to date on this document. Alwaysverify current medications with the patient. montelukast (SINGULAIR) 10 MG tabletIndicatio ns:SOB (shortness of breath) Take 10 mg by mouth at bedtime. Active Albuterol Sulfate (VENTOLIN HFA IN)Indications: SOB (shortness of breath) Inhale by mouth. Ac tive DiphenhydrAMINE HCl (BENADRYL ALLERGY PO)Indications: SOB (shortness of breath) Take by mouth. Acti ve levonorgestrel (MIRENA, 52 MG,) 20 MCG/24HR IUD 1 device by Intrauterine route as directed Active lisinopril (PRINIVIL;ZESTR IL) 5 MG tablet 8 Active cephalexin (KEFLEX) 500 MG capsule 8 Active HYDROcodone-jamin taminophen (NORCO) 5-325 MG tablet 8 Active Active Problems No known active problems Family History Medical History Relation Name Comments CAD (Coronary Artery Disease) Maternal Grandmother Hypertension Maternal Grandmother Hypertension Mother CAD (Coronary Artery Disease) Paternal Grandmother Relation Name Status Comments Maternal Grandmother Mother Paternal Grandmother Social History Tobacco Use Types Packs/Day Years Used Date Smoking Tobacco: Never Smokeless Tobacco: Never Alcohol Use Standard Drinks/Week Comments Yes 0 (1 standard drink = 0.6 oz pur e alcohol) rarely Comments No Sex and Gender Information Value Date Recorded Sex Assigned at Not on file Legal Sex Female 5:33 AM MACHINIST MATE Gender Identity Not on file Sexual Orientation Not on file Last Filed Vital Signs Vital Sign Reading Time Taken Comments Blood Pressure 163/107 03/16/2017 12:49 PM MACHINIST MATE Pulse 97 03/16/2017 12:49 PM MACHINIST MATE Temperature 36.6 C (97.8 F) 06/25/2014 2:48 PM CDT Respiratory Rate 22 06/25/2014 2:48 PM CDT Oxygen Saturation 93% 06/25/2014 2:48 PM CDT Inhaled Oxygen Concentration - - Weight 143.4 kg (316 lb 3.2 oz) 03/16/2017 1:26 PM MACHINIST MATE Height 163.8 cm (5' 4.5) 03/16/2017 1:26 PM MACHINIST MATE Body Mass Index 53.44 03/16/2017 1:26 PM MACHINIST MATE Plan of Treatment Health Maintenance Due Date Last Done Comments LIPID TESTING 1984 MAMMOGRAM 1984 HIV SCREENING 06/01/1999 HEPATITIS C SCREENING 05/27/2002 DTAP/TDAP/TD VACCINES (1 - Tdap) 06/01/2003 HEPATITIS B VACCINE (1 of 3 - 19+ 3-dose series) 06/01/2003 COVID-19 VACCINE ( - 2023-2 5 season) 2023 DEPRESSION SCREENING 02/21/2024 INFLUENZA VACCINE (Season Ended) 2024 ZOSTER VACCINE (1 of 2) 2034 HIB VACCINE Aged Out No longer eligi ble based on patient's age to complete this topic HPV VACCINE Aged Out No longer eligi ble based on patient's age to complete this topic MENINGOCOCCAL (Group B) VACC INE SHARED DECISION-MAKING Aged Out No longer eligibl e based on patient's age to complete this topic MENINGOCOCCAL GROUPS A/C/Y/W VACCINE Aged Out No longer eligible b ased on patient's age to complete this topic PNEUMOCOCCAL VACCINE Aged Out No long er eligible based on patient's age to complete this topic Insurance ANTHEM AETNA
--- OUTSIDE RECORDS SUMMARY | 2024-08-20 18:47 | XMS_ITS | Encounter Summary ---
Author Organization [facility] Address [address] [place] [address] Care Team Providers Care Raw Mill Operator Name Role Phone Jessie Shah MD Primary Care Provider [phone] Encounter Details Date Type Department Care Team (Late st Contact Info) Description 12/04/2019 Prep for Procedure [facility] Pre-Admission Testing [facility] [place], [place] [id number] Janes Prince MD [address] [place] [id number] Social History Tobacco Use Types Packs/Day Years Used Date Smoking Tobacco: Never Smokeless Tobacco: Never Alcohol Use Standard Drinks/Week Comments Yes 0 (1 standard drink = 0.6 oz pur e alcohol) occasional 2-3 per month Comments No Sex and Gender Information Value Date Recorded Sex Assigned at Female 03/16/2024 2:10 PM DIRECTOR OF CUSTOMER ACQUISITION Legal Sex Female 11:37 PM CDT Gender Identity Not on file Sexual Orientation Not on file COVID-19 Exposure Response Date Recorded In the last month, have you been in contact with someone who was confirmed or suspected to have Coronavirus / COVID-19? No / Unsure 12/04/2019 4:11 PM CDT documented as of this encounter Plan of Treatment Not on file documented as of this encounter Results * (ABNORMAL) PRE-SURGICAL/PRE-PROCEDURE CORONAVIRUS (COVID 19) (12/09/2019 2:32 PM CDT) CORONAVIRUS SARS COV 2 PCR (RESP) DETECTED(A) NOT DETECTED 12/10/2019 11:21 PM CDT [facility] Comment: A Detected result is considered a positive test result for COVID-19. This indicates that RNA from SARS-CoV-2 (formerly 2019-nCoV) was detected, and the patient is infected with the virus and presumed to be contagious. If requested by public health authority, specimen will be sent for additional testing. Please review the Fact Sheets and FDA authorized labeling available for health care providers and patients using the following websites: https://www.[employer]/home/Covid-19/HCP/NAAT/fact-sheet2 https://www.[employer]/home/Covid-19/Patients/NAAT/ fact-sheet2 This test has been authorized by the FDA under an Emergency Use Authorization (EUA) for use by authorized laboratories. Due to the current public health emergency, [facility] is receiving a high volume of samples from a wide variety of swabs and media for COVID-19 testing. In order to serve patients during this public health crisis, samples from appropriate clinical sources are being tested. Negative test results derived from specimens received in non-commercially manufactured viral collection and transport media, or in media and sample collection kits not yet authorized by FDA for COVID-19 testing should be cautiously evaluated and the patient potentially subjected to extra precautions such as additional clinical monitoring, including collection of an additional specimen. Methodology: Nucleic Acid Amplification Test (NAAT) includes RT-PCR or TMA Additional information about COVID-19 can be found at the [facility] website: www.[employer]/Covid19. Test performed at [facility] [address] [id number] Director: CHRIS BUSTOS DO,MPH FIRST TEST NO 12/09/2019 3:12 PM CDT [facility] EMPLOYED IN HEALTHCARE YES 12/09/2019 3:12 PM CDT [facility] SYMPTOMATIC DEFINED BY CDC NO 12/09/2019 3:12 PM CDT [facility] DATE OF SYMPTOM ONSET UNKNOWN 12/09/2019 3:16 PM CDT [facility] HOSPITALIZATION STATUS NO 12/09/2019 3:12 PM CDT [facility] PATIENT IN ICU NO 12/09/2019 3:12 PM CDT [facility] RESIDENT OF CONGREGATE CARE UNKNOWN 12/09/2019 3:12 PM CDT [facility] NOT 12/09/2019 3:12 PM CDT [facility] PATIENT'S RACE WHITE OR 12/09/2019 3:12 PM CDT [facility] ETHNICITY NONHISPANIC 12/09/2019 3:12 PM CDT [facility] SOURCE (QST) NASOPHARYNGEAL SWAB 12/09/2019 3:12 PM CDT [facility] NASOPHARYNGEAL SWAB / Unknown 12/09/2019 2:32 PM CDT us Janes Prince MD MICROBIOLOGY - GENERAL ORDERAB LES Final Result [facility] [address] [place] [address], [facility] [id number] [place] [address], documented in this encounter Visit Diagnoses Diagnosis Preop examination- Primary Preoperative examination, unspecified documented in this encounter Additional Health Concerns Infection Onset Date Last Indicated Resolved Time COVID-19 Rule Out 12/09/2019 12/09/2019 12/10/2019 11:21 PM CDT COVID-19 Confirmed Comment:Resolving symptom free for 10 days and approval to move forward with surgery. 12/09/2019 12/09/2019 12/24/2019 1:26 PM DIRECTOR OF CUSTOMER ACQUISITION COVID-19 Rule Out 12/31/2019 12/31/2019 01/01/2020 8:04 AM DIRECTOR OF CUSTOMER ACQUISITION COVID-19 Confirmed 12/31/2019 12/31/2019 1 12:34 AM DIRECTOR OF CUSTOMER ACQUISITION documented as of this encounter Care Teams Raw Mill Operator Relationship Specialty Start Date End Date Jessie Shah MD [address] [id number] PCP - General FAMILY PRACTICE 10/27/19 documented as of this encounter
--- OUTSIDE RECORDS SUMMARY | 2024-08-20 18:47 | XMS_ITS | Encounter Summary ---
Author Organization [facility] Address [address] [place] [address] Care Team Providers Care Shearer Helper Name Role Phone Miguel A Kan MD Primary Care Provider Encounter Details Date Type Department Care Team (Latest Contact Info) Description 02/03/2006 Outpatient Historical [facility] Pilonidal Cyst without Mention of Abscess (Primary Dx) Social History Tobacco Use Types Packs/Day Years Used Date Smoking Tobacco: Never Assessed Comments Unknown Sex and Gender Information Value Date Recorded Sex Assigned at Not on file Legal Sex Female 4:18 AM FORESTRY PILOT Gender Identity Not on file Sexual Orientation Not on file documented as of this encounter Plan of Treatment Not on file documented as of this encounter Procedures Procedure Name Priority Date/Time Associated Diagnosis Comments HEMOGLOBIN AND HEMATOCRIT Routine 02/03/2006 6:12 AM FORESTRY PILOT POC , URINE Routine 02/03/2006 6:12 AM FORESTRY PILOT documented in this encounter Results * POC , URINE (02/03/2006 6:12 AM FORESTRY PILOT) HCG QUAL URINE Negative Negative INTER FACE SYSTEM SPECIFIC GRAVITY UA 1.030 1.001 - 1.035 INTERFACE SYSTEM 02/03/2006 6:12 AM FORESTRY PILOT us Zachary Phan POINT OF CARE TESTING Final Resu lt INTERFACE SYSTEM Refer to clinic/hospital department * (ABNORMAL) HEMOGLOBIN AND HEMATOCRIT (02/03/2006 6:12 AM FORESTRY PILOT) HEMOGLOBIN 10.6(L) 11.8 - 14.8 g/dL INTERFACE SYSTEM HEMATOCRIT 35.0(L) 35.5 - 44.0 % INTERFACE SYSTEM 02/03/2006 6:12 AM FORESTRY PILOT [facility] HEMATOLOGY ORDERABLES Final Resu lt INTERFACE SYSTEM Refer to clinic/hospital department documented in this encounter Visit Diagnoses Diagnosis Pilonidal cyst without mention of abscess- Primary documented in this encounter Care Teams Shearer Helper Relationship Specialty Start Date End Date Miguel A Kan MD [address] [place] [id number] PCP - General Internal Medicine 04/26/11 05/02/16 documented as of this encounter
--- OUTSIDE RECORDS SUMMARY | 2024-08-20 18:47 | XMS_ITS | Encounter Summary ---
Author Organization [employer] Address [address] [place] [address] Care Team Providers Care Night Shift Manager Name Role Phone Miguel A Kan MD Primary Care Provider [phone] Encounter Details Date Type Department Care Team (Latest Contact Info) Description 10/16/2003 Outpatient Historical [facility] Latrice Vilchis, DO [address] [facility] [address] [place] [id number] MENSTRUAL DISORDER NEC (Primary Dx) Social History Tobacco Use Types Packs/Day Years Used Date Smoking Tobacco: Never Assessed Comments Unknown Sex and Gender Information Value Date Recorded Sex Assigned at Not on file Legal Sex Female 4:18 AM STATION JAILER Gender Identity Not on file Sexual Orientation Not on file documented as of this encounter Plan of Treatment Not on file documented as of this encounter Visit Diagnoses Diagnosis Other disorder of menstruation and other abnormal bleeding from female genital tract- Primary documented in this encounter Care Teams Night Shift Manager Relationship Specialty Start Date End Date Miguel A Kan MD [address] [facility] [address] [place] [address] PCP - General Internal Medicine 04/26/11 05/02/16 documented as of this encounter
--- OUTSIDE RECORDS SUMMARY | 2024-08-20 18:47 | XMS_ITS | Encounter Summary ---
Author Organization [facility] Address [address] [place] [address] Care Team Providers Care Judicial Clerk Name Role Phone Miguel A Kan MD Primary Care Provider [phone] Encounter Details Date Type Department Care Team (Late st Contact Info) Description 09/04/2003 Outpatient Historical [facility] Family Medicine [facility] [address] [facility] [address] [place] [address] [place] [address] 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
--- OUTSIDE RECORDS SUMMARY | 2024-08-20 18:47 | XMS_ITS | Encounter Summary ---
Author Organization [employer] [facility] Address 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
--- OUTSIDE RECORDS SUMMARY | 2024-08-20 18:47 | XMS_ITS | Encounter Summary ---
Author Organization [facility] Address [address] [place] [address] Care Team Providers Care Religion Department Chair Name Role Phone Miguel A Kan MD Primary Care Provider [phone] Encounter Details Date Type Department Care Team (Late st Contact Info) Description 04/14/2003 Outpatient Historical [facility] [place] [facility] [address] [facility] [address] [place] [address] Martir Goodson Social History Tobacco Use Types Packs/Day Years Used Date Smoking Tobacco: Never Assessed Comments Unknown Sex and Gender Information Value Date Recorded Sex Assigned at Not on file 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
--- OUTSIDE RECORDS SUMMARY | 2024-08-20 18:47 | XMS_ITS | Encounter Summary ---
Author Organization [facility] Address [address] [place] [address] Care Team Providers Care Staff Nuclear Medicine Technologist Name Role Phone Jessie Shah MD Primary Care Pro vider Encounter Details Date Type Department Care Team (Late st Contact Info) Description 09/22/2018 Documentation [facility] Surgeon [address] [place] [address] Kedar Forman Jr., MD [address] [place] [address] Social History Tobacco Use Types Packs/Day Years Used Date Smoking Tobacco: Never Smokeless Tobacco: Never Alcohol Use Standard Drinks/Week Comments Yes 0 (1 standard drink = 0.6 oz pur e alcohol) rare use AUDIT-C Answer Date Recorded Frequency of Alcohol Consumption Monthly or less 05/03/2018 Average Number of Drinks Not on file 019 Frequency of Binge Drinking Not on file 04/20 Comments No Sex and Gender Information Value Date Recorded Sex Assigned at Not on file Legal Sex Female 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
--- OUTSIDE RECORDS SUMMARY | 2024-08-20 18:47 | XMS_ITS | Encounter Summary ---
Author Organization [facility] Address [address] [place] [address] Care Team Providers Care Plastic Battery Assembler Name Role Phone Miguel A Kan MD Primary Care Provider [phone] Encounter Details Date Type Department Care Team (Late st Contact Info) Description 11/13/2002 Outpatient Historical [facility] 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
--- OUTSIDE RECORDS SUMMARY | 2024-08-20 18:47 | XMS_ITS | Encounter Summary ---
Author Organization [facility] Address [address] [place] [address] Care Team Providers Care Filtration Supervisor Name Role Phone Miguel A Kan MD Primary Care Provider [phone] Encounter Details Date Type Department Care Team (Latest Contact Info) Description 04/14/2003 Outpatient Historical [facility] NNEKA Rob[place], [place] [address] 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
--- OUTSIDE RECORDS SUMMARY | 2024-08-20 18:47 | XMS_ITS | Encounter Summary ---
Author Organization [facility] Address [address] [place] [address] Care Team Providers Care Supervisor Blast Furnace Name Role Phone Miguel A Kan MD Primary Care Provider [phone] Encounter Details Date Type Department Care Team (Late st Contact Info) Description 06/09/2004 Outpatient Historical [facility] Internal Medicine Medical [place] [facility] 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
--- OUTSIDE RECORDS SUMMARY | 2024-08-20 18:47 | XMS_ITS | Encounter Summary ---
Author Organization [facility] Address [address] [place] [address] Care Team Providers Care Environmental Safety Specialist Name Role Phone Miguel A Kan MD Primary Care Provider [phone] Encounter Details Date Type Department Care Team (Latest Contact Info) Description 05/12/2003 Outpatient [facility] [address] 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
--- OUTSIDE RECORDS SUMMARY | 2024-08-20 18:47 | XMS_ITS | Encounter Summary ---
Author Organization [facility] Address [address] [place] [address] Care Team Providers Care All Source Intelligence Analyst Name Role Phone Miguel A Kan MD Primary Care Provider [phone] Encounter Details Date Type Department Care Team (Late st Contact Info) Description 05/12/2004 Outpatient Historical [facility] Internal Medicine Medical [place] [facility] 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
--- OUTSIDE RECORDS SUMMARY | 2024-08-20 18:47 | XMS_ITS ---
Author Name Auto Generated, Auto Generated Organization [facility] ices Address [address] [place] [address] Phone [phone] Care Team Providers Care Mortgage Manager Name Role Phone Jeffrey Mackay Unavailable [phone] Unavailable [phone] Gissel Begum Unavailable [phone] M Unavailable Functional Status No Results Mental Status No Results Allergies and Intolerances Name Onset Date Reaction Severity No Known Allergies (Allergy) MonApr 27 19:45:00 EST 2019 Medications Medication Directions Start Date End Date Diflucan 150 mg tablet 150mg TABLET Oral 1 Time Daily for 1 Day MonMay 10 07:00:00 EDT 2018May 10 01:00:00 EDT 2018 Diflucan 150 mg tablet 150mg TABLET Oral 1 Time Daily for 1 Day MonMay 13 09:00:00 EDT 2018May 10 01:00:00 EDT 2018 Augmentin 875 mg-125 mg tablet 1 tablet TABLET Oral 2 Times Daily for 3 Days Hidradentis MonMay 07 09:00:00 EDT 2018May 10 01:00:00 EDT 2018 iron 325 mg (65 mg iron) tablet 1 tablet TABLET Oral 2 Times Daily Supplement MonMay 03 09:00:00 EDT 2018May 10 01:00:00 EDT 2018 metoprolol succinate ER 25 mg tablet,extended release 24 hr 25mg TABLET, EXTENDED RELEASE 24 HR Oral 1 Time Daily HTN MonMay 03 15:00:00 EDT 2018May 10 01:00:00 EDT 2018 TUBErsol 5 tub. unit/0.1 mL intradermal injection solution 0.1 ml VIAL (ML) Intradermal 1 Time Weekly for 2 Weeks (PPD) 1st injection upon admission. Read between 48 and 72 hours and give 2nd injection 1 week after the 1st if result is negative. If positive result, proceed with chest x-ray to rule out active disease. MonMay 01 12:30:00 EDT 2018May 10 01:00:00 EDT 2018 TUBErsol 5 tub. unit/0.1 mL intradermal injection solution Read Results VIAL (ML) Other 1 Time Weekly for 2 Weeks Read results between 48-72 hours after 1st and 2nd 1 week apart. If positive do chest x-ray to rule out active disease. MonMay 01 12:30:00 EDT 2018May 10 01:00:00 EDT 2018 oxyCODONE 5 mg tablet 1 tablet TABLET Or al PRN Every 4 Hours Dx: pain MonMay 01 12:40:00 EDT 2018May 10 01:00:00 EDT 2018 Arginaid 4.5 gram-156 mg/9.2 gram oral powder packet 1 packet POWDER IN PACKET (EA) Oral 2 Times Daily Supplement MonMay 01 15:00:00 EDT 2018May 10 01:00:00 EDT 2018 lisinopril 20 mg tablet 20mg TABLET Oral 1 Time Daily 20mg p.o. qHS MonApr 30 21:00:00 EDT 2018May 10 01:00:00 EDT 2018 doxycycline monohydrate 50 mg capsule 2 capsules Oral 2 Times Daily for 7 Days pharmacy interchange for vibramycin MonApr 30 21:00:00 EDT 2018May 07 20:59:00 EDT 2018 acetaminophen 500 mg tablet 2 TABLET Ora l Every 6 Hours MonApr 27 19:00:00 2018May 10 01:00:00 EDT 2018 amoxicillin 875 mg-potassium clavulanate 125 mg tablet 1 tablet TABLET Oral 2 Times Daily for 10 Days MonApr 27 19:00:00 2018May 07 12:25:00 EDT 2018 ascorbic acid (vitamin C) 500 mg tablet 1 tablet TABLET Oral 1 Time Daily MonApr 27 19:00:00 2018May 10 01:00:00 EDT 2018 cyclobenzaprine 5 mg tablet 5 mg TABLET Oral PRN 3 Times Daily muscle spasms MonApr 27 19:00:00 2018May 10 01:00:00 EDT 2018 Vibramycin 100 mg capsule 1 capsule CAPS ULE Oral 2 Times Daily for 10 Days MonApr 27 19:00:00 EST 2018Apr 30 19:58:00 EDT 2019 gabapentin 800 mg tablet 1 tablet TABLET Oral 3 Times Daily MonApr 27 19:00:00 2018May 10 01:00:00 EDT 2019 ibuprofen 400 mg tablet 1 tablet TABLET Oral PRN 3 Times Daily pain MonApr 27 19:00:00 2018May 10 01:00:00 EDT 2019 multivitamin tablet 1 tablet TABLET Oral 1 Time Daily MonApr 27 19:00:00 2018May 10 01:00:00 EDT 2019 oxyCODONE 5 mg tablet 5 mg 1 tablet TABL ET Oral PRN Every 4 Hours MonApr 27 19:00:00 2018May 01 12:47:00 EDT 2019 Senna with Docusate Sodium 8.6 mg-50 mg tablet 1 tablet TABLET Oral PRN 2 Times Daily MonApr 27 19:00:00 EST 2018May 10 01:00:00 EDT 2019 zinc sulfate 220 mg (50 mg) capsule 1 capsule CAPSULE Oral 1 Time Daily MonApr 27 19:00:00 2018u May 10 01:00:00 EDT 2019 Problems Active Concerns * Encounter for surgical aftercare following surgery on the skin and subcutaneous tissue* Code: * Start Date: MonApr 27 00:00:00 2018 * End Date: * Text: * Hidradenitis suppurativa* Code: * Start Date: MonApr 27:00:00 2018 * End Date: * Text: * Skin transplant status* Code: * Start Date: MonApr 27:00:00 2018 * End Date: * Text: * Acquired absence of other organs* Code: * Start Date: MonApr 27:00:00 2018 * End Date: * Text: * Infection following a procedure, superficial incisional surgical site, subsequent encounter* Code: * Start Date: MonApr 27:00:00 2018 * End Date: * Text: * Disruption of external operation (surgical) wound, not elsewhere classified, subsequent encounter* Code: * Start Date: MonApr 27:00:00 2018 * End Date: * Text: * Tachycardia, unspecified* Code: * Start Date: MonApr 27:00:00 2018 * End Date: * Text: * Essential (primary) hypertension* Code: * Start Date: MonApr 27::00 2018 * End Date: * Text: * Morbid (severe) obesity due to excess calories* Code: * Start Date: MonApr 27::00 2018 * End Date: * Text: * Acute posthemorrhagic anemia* Code: * Start Date: MonApr 27::00 2018 * End Date: * Text: * Obstructive sleep apnea (adult) (pediatric)* Code: * Start Date: MonApr 27::00 2018 * End Date: * Text: * Dependence on other enabling machines and devices* Code: * Start Date: MonApr 27::00 2018 * End Date: * Text: * Other specified complications of surgical and medical care, not elsewhere classified, subsequent encounter* Code: * Start Date: MonApr 27::00 2018 * End Date: * Text: * Radiculopathy, site unspecified* Code: * Start Date: MonApr 27::00 2018 * End Date: * Text: * Candidiasis of vulva and vagina* Code: * Start Date: MonApr 27:00:00 2018 * End Date: * Text: * Iron deficiency anemia, unspecified* Code: * Start Date: MonApr 27::00 2018 * End Date: * Text: Reason for Referral Past Medical History
--- OUTSIDE RECORDS SUMMARY | 2024-08-20 18:47 | XMS_ITS | Clinical Summary ---
Author Organization [place] [id number] [facility] Address [facility] [place] [address] Care Team Providers Care Warehouse Person Name Role Phone Jessie Shah MD Primary Care Pro vider Allergies No known active allergies Medications levonorgestrel (MIRENA) IUD 1 each by intrauterine route once Active alcohol swabs pads, medicated 1 each by Not Applicable route nightly 01/05/20 21 Active lancets miscIndications:Ty pe 2 diabetes mellitus with hyperglycemia, with long-term current use of insulin ([facility]) Check blood sugar fasting and prior to meals. Also check if having signs of hypoglycemia. Check up to 6 times a day. 100 each 3 01/12/20 21 Active blood glucose diagnostic (glucose blood) stripIndications:T ype 2 diabetes mellitus with hyperglycemia, with long-term current use of insulin ([facility]) Check blood sugar fasting and prior to meals. Also check if having signs of hypoglycemia. Check up to 6 times a day. 100 each 3 01/12/20 21 Active BD Hyacinth 2nd Gen Pen Needle 32 gauge x 5/32 needleIndications: Type 2 diabetes mellitus with hyperglycemia, with long-term current use of insulin ([facility]) Use to inject lantus nightly and trulicity weekly 100 each 1 01/12/20 21 Active insulin glargine (LANTUS, BASAGLAR, SEMGLEE) 100 unit/mL (3 mL) pen for injection Inject 24 Units under the skin nightly 15 mL 04/22/19 22 Active pen needle, diabetic (Pen Needle) 32 gauge x 5/32 needle Use as directed once a day. 100 each 04/22/19 22 Active pen needle, diabetic 32 gauge x 5/32 needle Use as directed 3 times a day. 100 each 04/22/19 22 Active amLODIPine (NORVASC) 10 mg tablet Take 1 tablet (10 mg total) by mouth daily 30 tablet 02/24/19 23 Active ondansetron ODT (ZOFRAN-ODT) 4 mg disintegrating tablet Take 1 tablet (4 mg total) by mouth every 8 (eight) hours as needed for nausea or vomiting 20 tablet 08/17/19 23 Active lisinopriL (PRINIVIL,ZESTRIL) 40 mg tabletIndications: Hypertension associated with diabetes (HCC) Take 1 tablet (40 mg total) by mouth daily 90 tablet 02/24/19 24 Active metFORMIN XR (GLUCOPHAGE XR) 500 mg 24 hr tabletIndications: Type 2 diabetes mellitus with hyperglycemia, with long-term current use of insulin (HCC) Take 1 tablet (500 mg total) by mouth 2 (two) times a day before breakfast and dinner 180 tablet 02/24/19 24 Active doxycycline hyclate 100 mg capsule 04/24/19 24 Active insulin lispro (HumaLOG, ADMELOG) 100 unit/mL pen for injectionIndicatio ns:Type 2 diabetes mellitus with hyperglycemia, with long-term current use of insulin (HCC) Inject 8 Units under the skin 3 (three) times a day with meals (1 unit for every 50 mg/dL blood glucose greater than 150 mg/dL up to max 4 units) 9 mL 2 04/25/19 24 Active meloxicam (MOBIC) 15 mg tablet Take 1 tablet (15 mg total) by mouth daily 30 tablet 05/02/19 24 Active FLUoxetine (PROzac) 20 mg capsuleIndications :Recurrent major depressive disorder, remission status unspecified TAKE 1 CAPSULE BY MOUTH EVERY DAY 100 capsule 1 05/28/19 24 Active hydroCHLOROthiazid e (HYDRODIURIL) 25 mg tabletIndications: Hypertension associated with diabetes (HCC) TAKE 1 TABLET (25 MG TOTAL) BY MOUTH DAILY. 90 tablet 1 05/29/19 24 Active Active Problems Problem Noted Date Diagnosed Date Type 2 diabetes mellitus wit h hyperglycemia, with long-term current use of insulin 01/07/2020 Assessment & Plan (04/25/2023 10:54 AM HEALTH AND HUMAN PERFORMANCE PROFESSOR): Uncontrolled Continue metformin XR twice a day Will decrease lantus to 25 units and start humalog 8 units TIDAC Assessment & Plan (07/19/2022 4:12 PM CDT): Uncontrolled Increase metformin XR to twice a day Will try to restart ozempic, advise to check their website for coupon Continue 40 units lantus nightly Assessment & Plan (03/25/2022 10:34 AM HEALTH AND HUMAN PERFORMANCE PROFESSOR): Uncontrolled Change metformin to XR and increase to twice a day Start ozempic Continue 40 units lantus nightly Assessment & Plan (01/11/2021 10:39 AM HEALTH AND HUMAN PERFORMANCE PROFESSOR): Uncontrolled Restart metformin & trulicity Continue lantus, if blood sugar getting too low decrease by a couple units and let me know Assessment & Plan (01/07/2020 1:17 PM HEALTH AND HUMAN PERFORMANCE PROFESSOR): Last a1c 9.8 Will restart metformin and start trulicity to help with weight loss Continue SSI humalog until blood sugar at goal Recurrent major depressive disorder, in remissio n 01/04/2019 Assessment & Plan (07/19/2022 4:13 PM CDT): Stable Continue prozac Assessment & Plan (03/25/2022 10:34 AM HEALTH AND HUMAN PERFORMANCE PROFESSOR): Start prozac Assessment & Plan (04/29/2019 10:53 AM CDT): D/c effexor as felt like a zombie States mood improved Denies SI Assessment & Plan (01/04/2019 1:32 PM HEALTH AND HUMAN PERFORMANCE PROFESSOR): PHQ Screening PHQ-2 Total Score (If total score is 3 or more points, staff should administer the PHQ-9): 3 PHQ-9 Total Score: 14 Denies SI Not interested in counseling Start venlafaxine 37.5mg, if well tolerated after 2 weeks increase to 75mg daily Sinus tachycardia 03/24/2018 Class 3 severe obesity due t o excess calories with serious comorbidity and body mass index (BMI) of 50.0 to 59.9 in adult 03/24/2018 Assessment & Plan (11/21/2018 9:57 AM CDT): BMI Follow-up includes: nutrition counseling and education provided. Hidradenitis suppurativa 02/24/2018 Overview (04/22/2018): h/o morbid obesity, ANNETTE, PCOS and severe hidradenitis of bilateral axillae, groin, pannus and mons s/p debridement of bilateral groins/mons with STSG to bilateral axillae on 04/03 w/ Punch. Presents reporting 2 day history of worsening right groin pain, foul odor from wounds, and increased right drain discharge. Tachycardia in ED to 120's. Subjective fever/chills at home. Afebrile. WBC 9.0. Assessment & Plan (04/25/2023 11:03 AM HEALTH AND HUMAN PERFORMANCE PROFESSOR): Reviewed last hospital note Continue antibiotics Assessment & Plan (01/11/2021 10:38 AM HEALTH AND HUMAN PERFORMANCE PROFESSOR): S/p hospitalization with I&D and IV antibiotics, reviewed records Continue clindamycin & rifampin Needs doreen drain removed, advised to call surgeon to schedule follow up DARWIN, desires to see one of his partners so placed new referral, but may need to follow up with him for drain removal Assessment & Plan (01/07/2020 1:16 PM HEALTH AND HUMAN PERFORMANCE PROFESSOR): S/p I&D Following with surgery, who is coordinating home health for twice a day wound dressing changes Assessment & Plan (01/04/2019 1:31 PM HEALTH AND HUMAN PERFORMANCE PROFESSOR): Missed follow up with label press operator, encouraged to reschedule Assessment & Plan (11/21/2018 9:57 AM CDT): S/p surgical removal and skin grafting on pannus and axilla Flare up on posterior neck currently I&D performed in office today Bactrim Patient has follow up with label press operator 1.5 weeks Strict return/ED precautions discussed Assessment & Plan (04/04/2018 10:18 AM HEALTH AND HUMAN PERFORMANCE PROFESSOR): Plan to remove some justine/sutures in groin wounds Continue dressing changes to bilateral axillae OR 04/03 for b/l groin debridement, mons debridement, and STSG to b/l axillae; wound vac over all Assessment & Plan (04/10/2018 12:12 PM HEALTH AND HUMAN PERFORMANCE PROFESSOR): Patient initially presented in early February 2018 with active draining sites to bilateral axillae and pannus, also has sites to bilateral inner groins and pubis, breasts, and neck. She required I & Ds in the past for symptoms and most recent admission February 2018 OR (02/25): panniculectomy, JPs X3, pain management, reg diet, with supplements for wound healing - PATH =Squamous cyst with associated acute and chronic inflammation and abscess formation, consistent with hidradenitis suppurativa The abdominal & bilateral axilla wound vacs were removed on 03/12. She was transitioned to NS damp to dry BID. The antibiotics & Fluconazole were stopped at discharge & she was discharged home with home health. Direct admit from clinic with worsening Hidradenitis in bilateral groin, axilla and NOW bilateral under breasts. -Wound care BID packing of all open areas w/ 0.5% dakins soaked kerlex -BID chlorhexidine bath 03/29 Right groin wound VAC placed due to large amount of creamy drainage. Interdry dressing under breasts. Aquacel over lower groin incision. Wound VAC to remain in place until OR 04/03. 03/31 most of the justine and some sutures removed from lower pannus incision. Tissue beefy and pink, cleansing with chlorhexidine and placing Aquacel AG. Continuing full strength Dakins wet to dry to bilateral axilla. JPx1 remains in place within the wound bed. OR on 04/03/2018--> Bilateral axillary STSG, bilateral groin debridement, mons debridement. Donor site to L thigh with vac in place. Vacs over axillae down 04/07- graft site pictures in chart, good take right axilla more than left. Donor site vac down 04/09. Abdominal vacs incisional: X 5 days-to wall suction overnight 04/04, Abx through 04/09 04/07 Bilateral axilla dressing; Adaptic, saline dampened gauze and dry gauze to hold in place 04/09 - donor site vac takedown and b/l groin and mons vac takedown; stopped abx. Continue with dry dressing changes. Patient tolerating bedside dressing changes. 04/10 - Plan d/c today and f/u in clinic for wound care in 1 week. Patient having bowel movements and tolerating regular diet. Assessment & Plan (03/12/2018 7:06 AM HEALTH AND HUMAN PERFORMANCE PROFESSOR): Patient has active draining sites to bilateral axillae and pannus, also has sites to bilateral inner groins and pubis, breasts, and neck. She has required I & Ds in the past for symptoms. OR (02/25): panniculectomy, JPs X3, pain management, reg diet, NO lying less than 30 degrees at waist at all times, no flat - PATH =Squamous cyst with associated acute and chronic inflammation and abscess formation, consistent with hidradenitis suppurativa - Vac down 03/09 - Keep IV clinda 900 mg TID past WVac removal on 03/05 - keep HOB > than 30 -outpt derm Wash U- worse on Humara OR (03/05): WVac done, b/l axillary hidra excision - vac down 03/12, complicated vac over wound Plan: The abdominal & bilateral axilla wound vacs were removed on 03/12. She was transitioned to NS damp to dry BID. The antibiotics & Fluconazole were stopped at discharge & she was discharged home with home health. ANNETTE on CPAP 03/20/2013 Assessment & Plan (01/04/2019 1:31 PM HEALTH AND HUMAN PERFORMANCE PROFESSOR): Encouraged to wear CPAP all night Assessment & Plan (11/21/2018 8:56 AM CDT): On CPAP Hypertension associated with diabetes 04/26/2011 Overview (04/23/2018): Overview: Evaluation for secondary hypertension has included screening for Ananya's (negative 24 hour urine in 2012), hyperaldosteronism (negative screen in 2011). Renal artery duplex has a lower sensitivity due to body habitus and was performed in 06/2013 - no obvious abnormality. The left kidney was slightly smaller than the right kidney. Assessment & Plan (04/25/2023 10:56 AM HEALTH AND HUMAN PERFORMANCE PROFESSOR): Controlled Continue lisinopril/hctz Assessment & Plan (07/19/2022 4:13 PM CDT): Uncontrolled Restart lisinopril/hctz Follow up 1-2 weeks for nurse visit for recheck Assessment & Plan (01/11/2021 10:39 AM HEALTH AND HUMAN PERFORMANCE PROFESSOR): Uncontrolled Restart lisinopril-hydrochlorothiazide Assessment & Plan (01/07/2020 1:19 PM HEALTH AND HUMAN PERFORMANCE PROFESSOR): BP 138/82 today, above goal (<130/80 with new diabetes mellitus diagnosis), but improved from previous Continue to monitor, may need to increase medications if remains elevated Assessment & Plan (04/29/2019 10:48 AM CDT): BP 144/106, similar on repeat Plan to increase hydrochlorothiazide after acute illness given has been persistently elevated and follow up 2 weeks after for repeat Continue 20mg lisinopril Assessment & Plan (01/04/2019 1:43 PM HEALTH AND HUMAN PERFORMANCE PROFESSOR): BP 150/110, 136/92 on repeat Continue 20mg lisinopril Add 12.5mg hctz Assessment & Plan (11/21/2018 9:57 AM CDT): BP 140/100 today, above goal Restart 20mg lisinopril Given DASH diet handout PCOS (polycystic ovarian syndrome) Abdominal wall abscess Resolved Problems Problem Noted Date Diagnosed Date Resolved Date Acute cystitis without hematuria 03/24/2018 11/21/2018 Leukocytosis 03/07/2018 03/10/2018 Assessment & Plan (03/08/2018 6:39 AM HEALTH AND HUMAN PERFORMANCE PROFESSOR): -UA neg -LE duplex negative -on room air -no central line WBC 14 >> 11 afebrile Acute pain 02/26/2018 11/21/2018 Assessment & Plan (04/10/2018 12:11 PM HEALTH AND HUMAN PERFORMANCE PROFESSOR): Continue scheduled gabapentin, acetaminophen, and PRN oxycodone 04/10: Patient discharged with new prescription for acetaminophen, gabapentin 600 mg TID, and oxycodone (#25). Assessment & Plan (03/07/2018 1:41 PM HEALTH AND HUMAN PERFORMANCE PROFESSOR): Scheduled acetaminophen, PRN oxycodone Scheduled bowel regimen Well controlled Immunizations Immunization Administration Dates Next Due Influenza, Quadrivalent, Spl it, Preservative Free, Intramuscular 04/24/2023,01/04/2021,01/07/2020,01/04,03/12/2018 Tdap 01/04/2019 Surgical History Surgery Date Site/Laterality Comments PILONIDAL CYST DRAINAGE DILATION AND CURETTAGE OF UTERUS x5 INGUINAL HIDRADENITIS EXCISION 02/25/2018 Pannus Medical History Medical History Date Comments Hidradenitis suppurativa HTN (hypertension) PCOS (polycystic ovarian syndrome) Morbid obesity (HCC) ANNETTE (obstructive sleep apnea) Class 3 severe obesity due t o excess calories with serious comorbidity and body mass index (BMI) of 50.0 to 59.9 in adult 03/24/2018 Family History Medical History Relation Name Comments Heart disease Father Hypertension Father Hypertension Mother Breast cancer Sister PONV Sister Relation Name Status Comments Father Alive Mother Alive Sister Social History Tobacco Use Types Packs/Day Years Used Date Smoking Tobacco: Never Smokeless Tobacco: Never Alcohol Use Standard Drinks/Week Comments Yes 0 (1 standard drink = 0.6 oz pur e alcohol) rare use occassionally AUDIT-C Answer Date Recorded Frequency of Alcohol Consumption Monthly or less 05/03/2018 Average Number of Drinks Not on file 019 Frequency of Binge Drinking Not on file 04/20 PHQ-2 Answer Date Recorded PHQ-2 Total Score (If total score is 3 or more points, staff should administer the PHQ-9) 0 07/19/2022 Personal Safety Answer Date Recorded Have you ever been in or are you currently in a harmful physical or emotional relationship or is someone making you feel afraid or unsafe? Denies 05/02/2023 Comments No Sex and Gender Information Value Date Recorded Sex Assigned at Not on file Legal Sex Female 10:52 PM HEALTH AND HUMAN PERFORMANCE PROFESSOR Gender Identity Not on file Sexual Orientation Not on file Obstetrics History Last Filed Vital Signs Vital Sign Reading Time Taken Comments Blood Pressure 150/107 05/02/2023 1:37 AM CDT Pulse 90 05/02/2023 1:37 AM CDT Temperature 36.1 C (97 F) 05/01/2023 5:46 PM CDT Respiratory Rate 18 05/02/2023 1:37 AM CDT Oxygen Saturation 98% 05/02/2023 1:37 AM CDT Inhaled Oxygen Concentration - - Weight 131.3 kg (289 lb 7.4 oz) 05/01/2023 5:46 PM CDT Height 160 cm (5' 3) 05/01/2023 5:46 PM CDT Body Mass Index 51.28 05/01/2023 5:46 PM CDT Plan of Treatment Health Maintenance Due Date Last Done Comments Albumin Creatinine Ratio, Urine 1984 Breast Cancer Screening-Mammogram 1984 Cervical Cancer Screening 1984 Hepatitis C Screening 1984 Foot Exam 1984 Varicella Vaccines (1 of 2 - 13+ 2-dose series) 1997 Hepatitis B Screening 2002 Regular Well Visit/Exam 18-64 2002 Pneumococcal vaccine <65 (1 of 2 - PCV) 06/01/2003 Dilated Eye Exam 05/09/2018 05/09/2017 Hemoglobin A1C 09/13/2022 03/16/2022, 03/24, 01/03/2021, Additional history exists Lipid Panel 03/17/2023 03/17/2022, 01/03/2021 Depression Screening 07/20/2023 07/19/2022, 01/11/2021, 01/11/2021, Additional history exists Covid-19 Vaccine ( season) 2023 04/03/2020, 03/05/2020 eGFR 04/30/2024 05/01/2023, 03/24, 03/25/2022, Additional history exists Influenza Vaccine (#1) 2024 , 01/04/2021, 01/07/2020, Additional history exists DTaP/Tdap/Td Vaccine (2 - Td or Tdap) 01/04/2029 01/04/2019 HPV Vaccines Aged Out No longer eligi ble based on patient's age to complete this topic Procedures Procedure Name Priority Date/Time Associated Diagnosis Comments EGFR STAT 05/01/2023 11:59 PM CDT HEMOGLOBIN A1C Routine 03/16/2022 DIABETES EYE EXAM Routine 05/09/2017 from Last 3 Months or Most Recently Relevant to Health Maintenance Results * eGFR (05/01/2023 11:59 PM CDT) eGFR 123 mL/min/1. 73 m2 Comment: Interpretive Data Reference Interval Normal >/= 90 mL/min/1.73m2 Mildly decreased* 60 - 89 mL/min/1.73m2 Mildly to moderately decreased 45 - 59 mL/min/1.73m2 Moderately to severely decreased 30 - 44 mL/min/1.73m2 Severely decreased 15 - 29 mL/min/1.73m2 Kidney Failure < 15 mL/min/1.73m2 *Relative to young adult level Estimated glomerular filtration rate is determined by the 2020 CKD-EPI equation recommended by the National Kidney Foundation (A Unifying Approach to GFR Estimation: Recommendations of the NKF-ASK Task Force on Reassessing the Inclusion of Race in Diagnosing Kidney Disease, JASN 202). The CKD-EPI equation should not be used for patients with unstable renal function and has not been validated in children and those over 70. Current interpretive data was last reviewed 2020. Testing performed by: [facility], [address] [place] [address]., [id number] Blood 05/01/2023 11:5 9 PM CDT 05/02/2023 12:13 AM CDT us Alessandro Wang NP LAB BLOOD ORDERABLES Final Resul t [id number] [facility] Department [place] [address] * HEMOGLOBIN A1C (03/16/2022) SCRIBED Hemoglobin A1c 9.1 % us Historical Provider HEALTH MAINTENANCE Final Result * DIABETES EYE EXAM (05/09/2017) SCRIBED DIABETIC DILATED EYE EXAM Normal us Historical Provider HEALTH MAINTENANCE Final Result from Last 3 Months or Most Recently Relevant to Health Maintenance Insurance [facility]THEM ACCESS CHOICE [facility] CHO[facility] Advance Directives For more information, please contact: [phone] * Full Code (Latest Code Status on File) Date Activated Date Inactivated Comments 04/15/2021 11:12 AM 04/21/2021 2:36 PM * Full Code Date Activated Date Inactivated Comments 04/22/2018 4:58 AM 04/27/2018 9:13 PM * Full Code Date Activated Date Inactivated Comments 03/28/2018 2:42 PM 04/10/2018 9:27 PM * Full Code Date Activated Date Inactivated Comments 02/24/2018 6:50 PM 03/12/2018 5:11 PM Care Teams Warehouse Person Relationship Specialty Start Date End Date Jessie Shah MD PCP - General Family Medicine 11/13/18
--- OUTSIDE RECORDS SUMMARY | 2024-08-20 18:47 | XMS_ITS | Encounter Summary ---
Author Organization [facility] Address [address] [place] [address] Care Team Providers Care Shot Blaster Name Role Phone Miguel A Kan MD Primary Care Provider [phone] Encounter Details Date Type Department Care Team (Late st Contact Info) Description 10/30/2002 Outpatient Historical [facility] [address] [id number] Erick Drake MD NO ADDRESS ON FILE Social History Tobacco Use Types Packs/Day Years Used Date Smoking Tobacco: Never Assessed Comments Unknown Sex and Gender Information Value Date Recorded Sex Assigned at Not on file Legal Sex Female 4:18 AM THERAPEUTIC RECREATION SPECIALIST Gender Identity Not on file Sexual Orientation Not on file documented as of this encounter Plan of Treatment Not on file documented as of this encounter Visit Diagnoses Not on filedocumented in this encounter Care Teams Shot Blaster Relationship Specialty Start Date End Date Miguel A Kan MD [address] [facility] [address] [place] [address] PCP - General Internal Medicine 04/26/11 05/02/16 documented as of this encounter
--- OUTSIDE RECORDS SUMMARY | 2024-08-20 18:47 | XMS_ITS | Encounter Summary ---
Author Organization [facility] Healthcare Address [address] [place] [address] Care Team Providers Care Water Operator Name Role Phone Jessie Shah MD Primary Care Pro vider Encounter Details Date Type Department Care Team (Late st Contact Info) Description 03/14/2018 Documentation [facility] Surgeon [address] [place] [address] Damon Denis MD PhD [address] [place] [address] Social History Tobacco Use Types Packs/Day Years Used Date Smoking Tobacco: Never Smokeless Tobacco: Never Alcohol Use Standard Drinks/Week Comments Yes 0 (1 standard drink = 0.6 oz pur e alcohol) rare use Comments No Sex and Gender Information Value Date Recorded Sex Assigned at Not on file Legal Sex Female 10:52 PM [employer] Gender Identity Not on file Sexual Orientation Not on file documented as of this encounter Plan of Treatment Not on file documented as of this encounter Visit Diagnoses Not on filedocumented in this encounter Care Teams Water Operator Relationship Specialty Start Date End Date Jessie Shah MD PCP - General Family Medicine 11/13/18 documented as of this encounter
--- OUTSIDE RECORDS SUMMARY | 2024-08-20 18:47 | XMS_ITS | Encounter Summary ---
Author Organization [facility] Address [address] [place] [address] Care Team Providers Care Postal Mail Carrier Name Role Phone Miguel A Kan MD Primary Care Provider [phone] Encounter Details Date Type Department Care Team (Late st Contact Info) Description 01/10/2003 Outpatient Historical [facility] Family Medicine [facility] [address] [place] [address] [place] [address] [place] [address] Social History Tobacco Use Types Packs/Day Years Used Date Smoking Tobacco: Never Assessed Comments Unknown Sex and Gender Information Value Date Recorded Sex Assigned at Not on file Legal Sex Female 4:18 AM WEBSITE DESIGNER Gender Identity Not on file Sexual Orientation Not on file documented as of this encounter Plan of Treatment Not on file documented as of this encounter Visit Diagnoses Not on filedocumented in this encounter Care Teams Postal Mail Carrier Relationship Specialty Start Date End Date Miguel A Kan MD [address] [facility] [address] [place] [id number] PCP - General Internal Medicine 04/26/11 05/02/16 documented as of this encounter
--- OUTSIDE RECORDS SUMMARY | 2024-08-20 18:47 | XMS_ITS | Referral Summary ---
Author Organization [place] [id number] [facility] Address Formerly [facility] [place] [address] Care Team Providers Care Post Doctoral Fellow Name Role Phone Jessie Shah MD Primary Care Pro vider Allergies No known active allergies Medications levonorgestrel (MIRENA) IUD 1 each by intrauterine route once Active alcohol swabs pads, medicated 1 each by Not Applicable route nightly 01/05/20 21 Active lancets miscIndications:Ty pe 2 diabetes mellitus with hyperglycemia, with long-term current use of insulin ([facility]) Check blood sugar fasting and prior to meals. Also check if having signs of hypoglycemia. Check up to 6 times a day. 100 each 3 01/12/20 21 Active blood glucose diagnostic (glucose blood) stripIndications:T ype 2 diabetes mellitus with hyperglycemia, with long-term current use of insulin ([facility]) Check blood sugar fasting and prior to meals. Also check if having signs of hypoglycemia. Check up to 6 times a day. 100 each 3 01/12/20 21 Active BD Hyacinth 2nd Gen Pen Needle 32 gauge x 5/32 needleIndications: Type 2 diabetes mellitus with hyperglycemia, with long-term current use of insulin ([facility]) Use to inject lantus nightly and trulicity [...] 01/07/2020 Assessment & Plan (04/25/2023 10:54 AM VP CUSTOMER DEVELOPMENT): Uncontrolled Continue metformin XR twice a day Will decrease lantus to 25 units and start humalog 8 units TIDAC Assessment & Plan (07/19/2022 4:12 PM CDT): Uncontrolled Increase metformin XR to twice a day Will try to restart ozempic, advise to check their website for coupon Continue 40 units lantus nightly Assessment & Plan (03/25/2022 10:34 AM VP CUSTOMER DEVELOPMENT): Uncontrolled Change metformin to XR and increase to twice a day Start ozempic Continue 40 units lantus nightly Assessment & Plan (01/11/2021 10:39 AM VP CUSTOMER DEVELOPMENT): Uncontrolled Restart metformin & trulicity Continue lantus, if blood sugar getting too low decrease by a couple units and let me know Assessment & Plan (01/07/2020 1:17 PM VP CUSTOMER DEVELOPMENT): Last a1c 9.8 Will restart metformin and start trulicity to help with weight loss Continue SSI humalog until blood sugar at goal Recurrent major depressive disorder, in remissio n 01/04/2019 Assessment & Plan (07/19/2022 4:13 PM CDT): Stable Continue prozac Assessment & Plan (03/25/2022 10:34 AM VP CUSTOMER DEVELOPMENT): Start prozac Assessment & Plan (04/29/2019 10:53 AM CDT): D/c effexor as felt like a zombie States mood improved Denies SI Assessment & Plan (01/04/2019 1:32 PM VP CUSTOMER DEVELOPMENT): PHQ Screening PHQ-2 Total Score (If total [...] 9.0. Assessment & Plan (04/25/2023 11:03 AM VP CUSTOMER DEVELOPMENT): Reviewed last hospital note Continue antibiotics Assessment & Plan (01/11/2021 10:38 AM VP CUSTOMER DEVELOPMENT): S/p hospitalization with I&D and IV antibiotics, reviewed records Continue clindamycin & rifampin Needs doreen drain removed, advised to call surgeon to schedule follow up DARWIN, desires to see one of his partners so placed new referral, but may need to follow up with him for drain removal Assessment & Plan (01/07/2020 1:16 PM VP CUSTOMER DEVELOPMENT): S/p I&D Following with surgery, who is coordinating home health for twice a day wound dressing changes Assessment & Plan (01/04/2019 1:31 PM VP CUSTOMER DEVELOPMENT): Missed follow up with what job titles mean, encouraged to reschedule Assessment & Plan (11/21/2018 9:57 AM CDT): S/p surgical removal and skin grafting on pannus and axilla Flare up on posterior neck currently I&D performed in office today Bactrim Patient has follow up with what job titles mean 1.5 weeks Strict return/ED precautions discussed Assessment & Plan (04/04/2018 10:18 AM VP CUSTOMER DEVELOPMENT): Plan to remove some justine/sutures in groin wounds Continue dressing changes to bilateral axillae OR 04/03 for b/l groin debridement, mons debridement, and STSG to b/l axillae; wound vac over all Assessment & Plan (04/10/2018 12:12 PM VP CUSTOMER DEVELOPMENT): Patient initially presented in early February 2018 [...] diet. Assessment & Plan (03/12/2018 7:06 AM VP CUSTOMER DEVELOPMENT): Patient has active draining sites to bilateral [...] 03/20/2013 Assessment & Plan (01/04/2019 1:31 PM VP CUSTOMER DEVELOPMENT): Encouraged to wear CPAP all night Assessment [...] kidney. Assessment & Plan (04/25/2023 10:56 AM VP CUSTOMER DEVELOPMENT): Controlled Continue lisinopril/hctz Assessment & Plan (07/19/2022 4:13 PM CDT): Uncontrolled Restart lisinopril/hctz Follow up 1-2 weeks for nurse visit for recheck Assessment & Plan (01/11/2021 10:39 AM VP CUSTOMER DEVELOPMENT): Uncontrolled Restart lisinopril-hydrochlorothiazide Assessment & Plan (01/07/2020 1:19 PM VP CUSTOMER DEVELOPMENT): BP 138/82 today, above goal (<130/80 with [...] lisinopril Assessment & Plan (01/04/2019 1:43 PM VP CUSTOMER DEVELOPMENT): BP 150/110, 136/92 on repeat Continue 20mg lisinopril Add 12.5mg hctz Assessment & Plan (11/21/2018 9:57 AM CDT): BP 140/100 today, above goal Restart 20mg lisinopril Given DASH diet handout PCOS (polycystic ovarian syndrome) Abdominal wall abscess Resolved Problems Problem Noted Date Diagnosed Date Resolved Date Acute cystitis without hematuria 03/24/2018 11/21/2018 Leukocytosis 03/07/2018 03/10/2018 Assessment & Plan (03/08/2018 6:39 AM VP CUSTOMER DEVELOPMENT): -UA neg -LE duplex negative -on room air -no central line WBC 14 >> 11 afebrile Acute pain 02/26/2018 11/21/2018 Assessment & Plan (04/10/2018 12:11 PM VP CUSTOMER DEVELOPMENT): Continue scheduled gabapentin, acetaminophen, and PRN oxycodone 04/10: Patient discharged with new prescription for acetaminophen, gabapentin 600 mg TID, and oxycodone (#25). Assessment & Plan (03/07/2018 1:41 PM VP CUSTOMER DEVELOPMENT): Scheduled acetaminophen, PRN oxycodone Scheduled bowel regimen Well controlled Immunizations Immunization Administration Dates Next Due Influenza, Quadrivalent, Spl it, Preservative Free, Intramuscular 04/24/2023,01/04/2021,01/07/2020,01/04,03/12/2018 Tdap 01/04/2019 Social History Tobacco Use Types Packs/Day Years [...] on file Legal Sex Female 10:52 PM VP CUSTOMER DEVELOPMENT Gender Identity Not on file Sexual Orientation [...] 05/01/2023 5:46 PM CDT Plan of Treatment Not on file Procedures Procedure Name Priority Date/Time Associated Diagnosis [...] of Race in Diagnosing Kidney Disease, JASN 2020). The CKD-EPI equation should not be used for patients with unstable renal function and has not been validated in children and those over 70. Current interpretive data was last reviewed 2020. Testing performed by: [facility], [address] [place] [address]., [id number] Blood 05/01/2023 11:5 9 PM CDT 05/02/2023 12:13 AM CDT us Alessandro Wang NP LAB BLOOD ORDERABLES Final Resul t [facility] [address] [facility] Department [place] [address] * HEMOGLOBIN A1C (03/16/2022) SCRIBED Hemoglobin A1c 9.1 % us Historical Provider HEALTH MAINTENANCE Final Result * DIABETES EYE EXAM (05/09/2017) SCRIBED DIABETIC DILATED EYE EXAM Normal us Historical Provider HEALTH MAINTENANCE Final Result from Last 3 Months or Most Recently Relevant to Health Maintenance Insurance ACCESS CHOICE [facility] CHOICE PLUS ANTHEM ACCESS CHOICE ANTHEM ACCESS CHOICE Advance Directives For more information, please contact: [phone] * Full Code (Latest Code Status on File) Date Activated Date Inactivated Comments 04/15/2021 11:12 AM 04/21/2021 2:36 PM * Full Code Date Activated Date Inactivated Comments 04/22/2018 4:58 AM 04/27/2018 9:13 PM * Full Code Date Activated Date Inactivated Comments 03/28/2018 2:42 PM 04/10/2018 9:27 PM * Full Code Date Activated Date Inactivated Comments 02/24/2018 6:50 PM 03/12/2018 5:11 PM Care Teams Post Doctoral Fellow Relationship Specialty Start Date End Date Jessie Shah MD PCP - General Family Medicine 11/13/18
--- OUTSIDE RECORDS SUMMARY | 2024-08-20 18:47 | XMS_ITS | Clinical Summary ---
Author Organization [facility] Address [address] [place] [address] Phone Care Team Providers Care Manager Garage Name Role Phone Unavailable Primary Care Provider Unavailabl e Allergies No known active allergies Medications Levonorgestrel (MIRENA) 20 mcg/24 hr Intrauterine IUD by Intrauterine route. Active lisinopril-hydro chlorothiazide (ZESTORETIC) 20-12.5 mg tablet Take 2 Tablet by mouth daily. 60 Tablet 11 6 Active albuterol HFA 90 mcg inhaler Take 2 Puffs by inhalation every 6 hours as needed for Shortness of Breath. 8.5 Gram 5 6 Active citalopram (CELEXA) 20 mg tablet Take 1 Tablet (20 mg) by mouth daily at bedtime. 90 Tablet 3 6 Active methylPREDNISolo ne (MEDROL DOSPACK) 4 mg Tablets, Dose Pack Take as directed on package.. 1 Package 7 Active Active Problems Patient Care Coordination No te Formatting of this note migh t be different from the original. Dr. Espinoza - DESTINATION SIGN REPAIRER Problem Noted Date Diagnosed Date Generalized anxiety disorder 08/03/2015 ANNETTE on CPAP - partially noncompliant 03/20/2013 Morbid obesity 03/12/2013 Hypertension 04/26/2011 Overview (02/06/2014): Evaluation for secondary hypertension has included screening for Ananya's (negative 24 hour urine in 2012), hyperaldosteronism (negative screen in 2011). Renal artery duplex has a lower sensitivity due to body habitus and was performed in 06/2013 - no obvious abnormality. The left kidney was slightly smaller than the right kidney. PCOS 04/26/2011 Major depression 04/26/2011 Resolved Problems Problem Noted Date Diagnosed Date Resolved Date Diarrhea 03/14/2013 03/20/2013 Influenza 03/12/2013 03/20/2013 Pneumonia 03/12/2013 03/20/2013 Overview (03/15/2013): Influenza +ve OSH, here with worsening symptoms, treated with broad spectrum antibiotics and discharged on doxycycline course. Hypokalemia 03/12/2013 03/20/2013 PCOS 05/21/2012 03/12/2013 Obesity 04/26/2011 03/12/2013 Snoring 04/26/2011 03/12/2013 Family History Medical History Relation Name Comments Healthy Father Alzheimer's Disease Maternal Grandfather Hypertension Maternal Grandfather Stroke Maternal Grandfather Heart Disease Maternal Grandmother Hypertension Maternal Grandmother Hypertension Mother Migraines Mother Heart Disease Paternal Grandfather Heart Disease Paternal Grandmother Hypertension Paternal Grandmother Healthy Sister 1 Healthy Sister 2 Relation Name Status Comments Father Alive Maternal Grandfather Maternal Grandmother Mother Alive Paternal Grandfather Paternal Grandmother Sister 1 Alive Sister 2 Alive Social History Tobacco Use Types Packs/Day Years Used Date Smoking Tobacco: Former Smokeless Tobacco: Never Alcohol Use Standard Drinks/Week Comments Yes 0.8 (1 standard drink = 0.6 oz p ure alcohol) once a month Comments No Sex and Gender Information Value Date Recorded Sex Assigned at Not on file Legal Sex Female 4:18 AM POLYETHYLENE BAG MACHINE OPERATOR Gender Identity Not on file Sexual Orientation Not on file Occupation Industry Job Start Date Job End Date Not on file Not on file Not on file Not on file Last Filed Vital Signs Vital Sign Reading Time Taken Comments Blood Pressure 154/92 04/01/2016 1:24 PM POLYETHYLENE BAG MACHINE OPERATOR Pulse 104 04/01/2016 1:24 PM POLYETHYLENE BAG MACHINE OPERATOR Temperature 37.7 C (99.8 F) 04/01/2016 1:24 PM POLYETHYLENE BAG MACHINE OPERATOR Respiratory Rate 18 06/15/2014 12:30 AM CDT Oxygen Saturation 97% 04/01/2016 1:24 PM POLYETHYLENE BAG MACHINE OPERATOR Inhaled Oxygen Concentration - - Weight 153.3 kg (338 lb) 04/01/2016 1:24 PM POLYETHYLENE BAG MACHINE OPERATOR Height 165.1 cm (5' 5) 04/01/2016 1:24 PM POLYETHYLENE BAG MACHINE OPERATOR Body Mass Index 56.25 04/01/2016 1:24 PM POLYETHYLENE BAG MACHINE OPERATOR Plan of Treatment Health Maintenance Due Date Last Done Comments DTAP/TDAP/TD VACCINES (1 - Tdap) 06/01/2003 HEPATITIS B VACCINES (1 of 3 - 19+ 3-dose series) 06/01/2003 Pre-Diabetes and Diabetes Screening 04/29/2014 04/30/2011 PAP SMEAR 2014 05/09/2011, 03/28/2010 CERVICAL CANCER SCREENING 05/08/2016 HPV/Cotest (21-29) 05/08/2016 05/09/2011 HPV/Cotest (30-65) 05/08/2016 05/09/2011 INFLUENZA VACCINE (#1) 2023 BREAST CANCER SCREENING 2024 HPV VACCINES Aged Out No longer eligi ble based on patient's age to complete this topic Procedures Procedure Name Priority Date/Time Associated Diagnosis Comments CERV/VAG CYTOPATH, THIN PREP IMAGR RFLX HPV Routine 05/09/2011 9:00 PM CDT Screening for malignant neoplasm of the cervix HEMOGLOBIN A1C Routine 04/30/2011 8:19 AM POLYETHYLENE BAG MACHINE OPERATOR from Last 3 Months or Most Recently Relevant to Health Maintenance Results * CERV/VAG CYTOPATH, THIN PREP IMAGR RFLX HPV (05/09/2011 9:00 PM CDT) LAST MENSTRUAL PERIOD 04/01/2011 [facility] CYTOLOGY INFECTION Shift in vaginal yris suggestive of bacterial vaginosis. [facility] Physician Practice Manager Pap Comment This Pap test has been evaluated with computer assisted technology. Based on the cytology result, reflex High Risk HPV DNA testing was not performed. [facility] PAP INTERP Negative for intraepithelial lesion or malignancy. [facility] ADEQUACY: Satisfactory for evaluation. Endocervical/trans formation zone component absent. [facility] CLINICAL INFORMATION PT IS HI RISK [facility] SOURCE Cervix, Endocervix [facility] PREV PAP: Information not provided [facility]. [employer] ST: MVB, [place](ASCP) [facility] REVIEW [employer] ST: LMT, CT(ASCP) [facility] Comment: Lab test performed by: [facility] [address] [place] [address] CHRIS BUSTOS DO PREV BX: NO [facility] Endocervical 05/09/2011 9:00 PM CDT 05/09/2011 9:17 PM CDT Comment:ENDOCERVICAL Narrative [facility] - 05/11/2011 6:18 AM CDT Fax results to [phone] Marsha Fink NP PATHOLOGY/CYTOLOGY ORDERABLES F inal Result Performing Organization Address [facility] de Phone Number [facility] CLAL# [id number] [address] [place] [address] * HEMOGLOBIN A1C (04/30/2011 8:19 AM POLYETHYLENE BAG MACHINE OPERATOR) HEMOGLOBIN A1C 5.2 <5.7 % of total Hgb [facility] Comment: Decreased risk of diabetes <5.7 Decreased risk of diabetes 5.7-6.0 Increased risk of diabetes 6.1-6.4 Higher risk of diabetes > or = 6.5 Consistent with diabetes Standards of Medical Care in Diabetes-2010. Diabetes Care, 33(Supp 1): S1-S61,2010. Test Performed at: [facility] [address] [place] [address] CHRIS BUSTOS DO,MPH 04/30/2011 8:19 AM POLYETHYLENE BAG MACHINE OPERATOR Miguel A Kan MD CHEMISTRY ORDERABLES Final Resul t INTERFACE SYSTEM Refer to clinic/hospital department [facility] [address] [place] [address] from Last 3 Months or Most Recently Relevant to Health Maintenance Insurance [facility] [id number] Advance Directives For more information, please contact: [phone] * Full Code (Latest Code Status on File) Date Activated Date Inactivated Comments 03/12/2013 6:33 PM 03/15/2013 12:32 PM
--- OUTSIDE RECORDS SUMMARY | 2024-08-20 18:47 | XMS_ITS ---
Author Name Auto Generated, Auto Generated Organization [facility] [employer] [facility] ices Address [address] [place] [address] Phone [phone] Care Team Providers Care Sapphire Stylus Grinder Name Role Phone Jeffrey Mackay Unavailable Diamante Diegoica Unavailable [phone] Gissel Begum Unavailable Eagle Elisabeth M Unavailable Functional Status No [...]
--- OUTSIDE RECORDS SUMMARY | 2024-08-20 18:48 | XMS_ITS | Clinical Summary ---
Author Organization [facility] Address [address] [place] [address] Care Team Providers Care Print Line Operator Name Role Phone Jessie Shah MD Primary Care Provider [phone] Allergies No known active allergies Medications levonorgestrel (MIRENA, 52 MG,) 20 MCG/24HR IUD 1 Intra Uterine Device by Intrauterine route once. Active ibuprofen 200 MG tablet Take 1-2 tablets (200-400 mg total) by mouth every 8 (eight) hours as needed for Pain. Active lisinopril (PRINIVIL) 40 MG tablet Take 1 tablet (40 mg total) by mouth daily. 90 tablet 3 Active Additional Information Patient taking differently:40 mg OralEvery evening, Informant: Self, Reported on 03/16/2024 hydroCHLOROthia zide (HYDRODIURIL) 25 MG tablet Take 1 tablet (25 mg total) by mouth daily. 90 tablet 3 Active Additional Information Patient taking differently:25 mg OralEvery evening, Informant: Self, Reported on 03/16/2024 FLUoxetine (PROZAC) 20 MG capsule Take 1 capsule (20 mg total) by mouth daily. 3 Active metFORMIN ER (GLUCOPHAGE-XR) 500 MG 24 hr tablet Take 1 tablet (500 mg total) by mouth 2 (two) times daily before meals. Active acetaminophen (TYLENOL) 500 MG tablet Take 2 tablets (1,000 mg total) by mouth every 8 (eight) hours as needed for Pain. Active oxyCODONE immediate release (ROXICODONE) 5 MG immediate release tabletIndicatio ns:Acute Pain < 7 Day Supply Take 1 tablet (5 mg total) by mouth every 4 (four) hours as needed for Pain. Indications: Acute Pain < 7 Day Supply 9 tablet Active doxycycline hyclate (VIBRAMYCIN) 100 MG capsule Take 1 capsule (100 mg total) by mouth 2 (two) times daily for 7 days. 14 capsule 5 08/25/19 Active Active Problems Problem Noted Date Diagnosed Date Status post incision and drainage 03/18/2024 Skin infection 06/18/2023 Sepsis ([facility]) 04/23/2023 Infection following a proced ure, other surgical site, initial encounter 03/30/2022 Hidradenitis 03/16/2022 Hydradenitis 01/02/2021 Hidradenitis suppurativa 12/29/2019 Encounters Date Type Department Care Team Description 08/17/2024 2:04 PM CDT - 08/17/2024 5:58 PM CDT Emergency [facility] [place] [address] Caleb Apodaca PA Skin Problem Discharge Disposition: Home or Self Care (Routine Discharge) 08/17/2024 Travel 06/18/2024 7:54 PM CDT - 06/18/2024 9:47 PM CDT Emergency [facility] [place] [address] Fidel Roberts MD Abscess Discharge Disposition: Home or Self Care (Routine Discharge) 06/18/2024 Travel 06/04/2024 7:27 AM CDT - 06/04/2024 9:39 AM CDT [facility] [place] [address] Sp Miramontes MD Pleuritic Chest Pain Discharge Disposition: Home or Self Care (Routine Discharge) 06/04/2024 Travel from Last 3 Months Immunizations Immunization Administration Dates Next Due Fluzone 6 Months+ Quad (0.5 mL Prefilled Syringe ) 04/24/2023,01/04/2021 Family History Medical History Relation Comments Heart Disease Father Hypertension Father Diabetes Maternal Grandmother Heart Disease Maternal Grandmother Hypertension Mother Cancer Sister breast Stroke Sister from chemo Relation Status Comments Father Maternal Grandmother Mother Sister Social History Tobacco Use Types Packs/Day Years Used Date Smoking Tobacco: Never Smokeless Tobacco: Never Tobacco Cessation:Counseling Given: Not Answered Alcohol Use Standard Drinks/Week Comments Yes 0 (1 standard drink = 0.6 oz pur e alcohol) occasional 2-3 per month [id number] Health Literacy Answer Date Recor ded How often do you need to hav e someone help you when you read instructions, pamphlets, or other written material from your doctor or pharmacy? Never 05/30/2023 [facility] Utilities Answer Date Recorded In the past 12 months has e [employer], gas, oil, or water [employer] threatened to shut off services in your home? No 03/17/2024 Humiliation, Afraid, Rape, and Kick questionnair e Answer Date Recorded Within the last year, have y ou been afraid of your partner or ex-partner? No 03/17/2024 Within the last year, have y ou been humiliated or emotionally abused in other ways by your partner or ex-partner? No Within the last year, have y ou been kicked, hit, slapped, or otherwise physically hurt by your partner or ex-partner? No 03/17/2024 Within the last year, have y ou been raped or forced to have any kind of sexual activity by your partner or ex-partner? No 03/17/2024 Social Connection and Isolat ion Panel [NHANES] Answer Date Recorded In a typical week, how many times do you talk on the phone with family, friends, or neighbors? More than three times a week 05/30/2023 How often do you get togethe r with friends or relatives? More than three times a week 05/30/2023 Attends [employer] Services Not on file 05/29 Active Member of Clubs or Organizations Not on f ile 05/30/2023 Attends Club or Organization Meetings Not on velasquez e 05/30/2023 Marital Status Not on file 05/30/2023 AUDIT-C Answer Date Recorded Q1: How often do you have a drink containing alc ohol? Monthly or less 03/16/2024 Q2: How many drinks containi ng alcohol do you have on a typical day when you are drinking? 1 or 2 03/16/2024 Q3: How often do you have si x or more drinks on one occasion? Never 03/16/2024 Overall Financial Resource Strain (CARDIA) Answe r Date Recorded How hard is it for you to pa y for the very basics like food, housing, medical care, and heating? Not very hard 03/17/2024 PHQ-2 Answer Date Recorded Patient Health Questionnaire-2 Score 0 03/16/2024 [facility] - Occupational Stress Questionnaire Answer Date Recorded Do you feel stress - tense, restless, nervous, or anxious, or unable to sleep at night because your mind is troubled all the time - these days? Only a little 05/30/2023 Exercise Vital Sign Answer Date Recorde d On average, how many days pe r week do you engage in moderate to strenuous exercise (like a brisk walk)? 0 days 03/16/2024 On average, how many minutes do you engage in exercise at this level? 0 min 03/16/2024 Hunger Vital Sign Answer Date Recorded Within the past 12 months, y ou worried that your food would run out before you got the money to buy more. Never true 03/17/19 25 Within the past 12 months, t he food you bought just didn't last and you didn't have money to get more. Never true 03/17/2024 PRAPARE - Transportation Answer Date Re corded In the past 12 months, has l ack of transportation kept you from medical appointments or from getting medications? No 02/21 In the past 12 months, has l ack of transportation kept you from meetings, work, or from getting things needed for daily living? No 03/17/2024 Housing Stability Vital Sign Answer Silver e Recorded In the last 12 months, was t here a time when you were not able to pay the mortgage or rent on time? No 04/23/2023 In the last 12 months, how many places have you lived? 1 04/23/2023 In the last 12 months, was t here a time when you did not have a steady place to sleep or slept in a assisted (including now)? No 04/23/2023 Housing Stability Vital Sign Answer Silver e Recorded In the last 12 months, was t here a time when you were not able to pay the mortgage or rent on time? No 03/17/2024 In the past 12 months, how m any times have you moved where you were living? 1 03/17/2024 At any time in the past 12 m [facility], were you homeless or living in a assisted (including now)? No 03/17/2024 Comments No Sex and Gender Information Value Date Recorded Sex Assigned at Female 03/16/2024 2:10 PM [employer] Legal Sex Female 11:37 PM CDT Gender Identity Not on file Sexual Orientation Not on file Last Filed Vital Signs Vital Sign Reading Time Taken Comments Blood Pressure 155/82 08/17/2024 3:30 PM CDT Pulse 100 08/17/2024 3:30 PM CDT Temperature 36.7 C (98 F) 08/17/2024 1:34 PM CDT Respiratory Rate 18 08/17/2024 3:30 PM CDT Oxygen Saturation 97% 08/17/2024 3:30 PM CDT Inhaled Oxygen Concentration - - Weight 123.4 kg (272 lb) 08/17/2024 1:34 PM CDT Height 162.6 cm (5' 4) 08/17/2024 1:34 PM CDT Body Mass Index 46.69 08/17/2024 1:34 PM CDT Plan of Treatment Health Maintenance Due Date Last Done Comments Cervical Cancer Screening Pap Smear (Age 30 to 64) Every 3 Years 1984 Kidney Health Evaluation 1984 Annual Physical 06/01/1987 Diabetes: Retinopathy Eye Exam 2002 Hepatitis C 2002 Hepatitis B Vaccines (1 of 3 - 19+ 3-dose series) 06/01/2003 Pneumococcal Vaccine: Pediatrics (0 to 5 Years) and At-Risk Patients (6 to 49 Years) (1 of 2 - PCV) 06/01/2003 Cervical Cancer Screening Pap with HPV Testing (Age 30 to 64) Every 5 Years 2014 Cervical Cancer Screening with HPV 2014 Lipid Panel 03/17/2023 03/17/2022, 01/03/2021 COVID-19 Vaccine ( season) 2023 04/03/2020, 03/05/2020 Mammogram Screening 2024 Hemoglobin A1C 06/15/2024 03/17/2024, 04/0 10/2023, 03/16/2022, Additional history exists DTaP, Tdap and Td Vaccines (2 - Td or Tdap) 01/04/2029 01/04/2019 HPV Vaccines Aged Out No longer eligi ble based on patient's age to complete this topic Meningococcal B Vaccine Aged Out No l onger eligible based on patient's age to complete this topic Meningococcal Vaccine Aged Out No darshana conrado eligible based on patient's age to complete this topic RSV Immunizations Under 20 Months Aged Out No longer eligible based on patient's age to complete this topic Goals Goal Patient Goal Type Associated Problems Recent Progress Patient-Stated? Author Outpatient Goal General No Jassi Hunt, RN Note: Understanding of wound care and able to perform independently. Eat nutritious, low calorie meals to promote healing. 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 Procedures Procedure Name Priority Date/Time Associated Diagnosis Comments CT PEL W CON STAT 08/17/2024 4:28 PM CDT POCT URINE (BACK OFFICE) STAT 08/17/2024 4:03 PM CDT LACTIC ACID W REFLEX (SEPSIS) STAT 08/17/2024 2:28 PM CDT BASIC METABOLIC PANEL STAT 08/17/2024 2:11 PM CDT CBC W/DIFF AUTOMATED STAT 08/17/2024 2:11 PM CDT INCISION AND DRAINAGE Routine 06/18/2024 8:52 PM CDT COMPREHENSIVE METABOLIC PANEL STAT 06/18/2024 8:01 PM CDT CBC W/DIFF AUTOMATED STAT 06/18/2024 8:01 PM CDT TROPONIN, QUANT STAT 06/04/2024 9:21 AM CDT CTA CHEST STAT 06/04/2024 8:39 AM CDT XR CHEST PORTABLE STAT 06/04/2024 7:5 7 AM CDT TROPONIN, QUANT STAT 06/04/2024 7:34 AM CDT COMPREHENSIVE METABOLIC PANEL STAT 06/04/2024 7:34 AM CDT CBC W/DIFF AUTOMATED STAT 06/04/2024 7:34 AM CDT ECG 12-LEAD STAT 06/04/2024 7:29 AM CDT HEMOGLOBIN, GLYCOSYLATED Routine 03/17/2024 5:30 AM [employer] LIPID PANEL Routine 03/17/2022 7:04 AM [employer] from Last 3 Months or Most Recently Relevant to Health Maintenance Results * CT PEL W CON (08/17/2024 4:28 PM CDT) Anatomical Region Laterality Modality Pelvis Computed Tomogra phy 08/17/2024 5:28 PM CDT Impressions 08/17/2024 5:33 PM CDT IMPRESSION: Subcutaneous edema. No drainable fluid collection. Referred By: Interpreted By: Gurjit Young MD, 08/17/2024 5:28 PM Narrative 08/17/2024 5:33 PM CDT [address] [address] EXAMINATION: CT PEL W CON CLINICAL HISTORY: Left groin abscess COMPARISON: 03/16/2024 DATE/TIME: 08/17/2024 4:03 PM TECHNIQUE: Multiplanar CT images of the pelvis were obtained. IV contrast: uneventful intravenous administration of 100 mL Isovue 370. Oral contrast: None. A dose lowering technique was used for this procedure, which may include, but is not limited to, dose reduction technique, automated exposure control, the use of iterative reconstruction, and ALARA (As Low As Reasonably Achievable) / Image Gently techniques. FINDINGS: There are areas of skin thickening and subcutaneous edema in the left inguinal region, left side of the perineum and underneath the patient's abdominal pannus, which may be inflammatory/infectious. No drainable fluid collection/abscess identified. No soft tissue gas. Prominent bilateral inguinal lymph nodes within normal limits by size criteria. IUD is noted which appears appropriately positioned. There is a right ovarian cyst measuring 4 cm. There is a left ovarian cyst measuring 1.8 cm. Small left renal cyst is incidentally noted, which does not require follow-up. No acute osseous abnormality. Procedure Note Gurjit Young MD - 08/17/[address] [address] EXAMINATION: CT PEL W CON CLINICAL HISTORY: Left groin abscess COMPARISON: 03/16/2024 DATE/TIME: 08/17/2024 4:03 PM TECHNIQUE: Multiplanar CT images of the pelvis were obtained. IVcontrast: uneventful intravenous administration of 100 mL Isovue 370.Oral contrast: None. A dose lowering technique was used for this procedure, which may include,but is not limited to, dose reduction technique, automated exposurecontrol, the use of iterative reconstruction, and ALARA (As Low AsReasonably Achievable) / Image Gently techniques. FINDINGS: There are areas of skin thickening and subcutaneous edema in theleft inguinal region, left side of the perineum and underneath thepatient's abdominal pannus, which may be inflammatory/infectious. Nodrainable fluid collection/abscess identified. No soft tissue gas.Prominent bilateral inguinal lymph nodes within normal limits by sizecriteria. IUD is noted which appears appropriately positioned. There is a rightovarian cyst measuring 4 cm. There is a left ovarian cyst measuring 1.8cm. Small left renal cyst is incidentally noted, which does not requirefollow-up. No acute osseous abnormality. IMPRESSION: Subcutaneous edema. No drainable fluid collection. Referred By: Interpreted By: Gurjit Young MD, 08/17/2024 5:[address] Final Resul t * POCT urine (08/17/2024 4:03 PM CDT) URINE HCG TEST NEGATIVE Internal Control: VALID 08/17/2024 4:03 PM CDT Caleb GUERIN POINT OF CARE TEST ORDERABL ES Final Result * LACTIC ACID W REFLEX (SEPSIS) (08/17/2024 2:28 PM CDT) Pathologist [facility] LACTIC ACID VENOUS 1.6 0.4 - 2.0 MMOL/L 08/17/2024 3:05 PM CDT [facility] 08/17/2024 2:28 PM CDT Caleb GUERIN LABORATORY Final Resul t [facility] [address] [place] [address], [place] [phone] * (ABNORMAL) BASIC METABOLIC PANEL (08/17/2024 2:11 PM CDT) Pathologist [facility] GLUCOSE 395(H) 70 - 99 MG/DL 08/17/2024 2:35 PM CDT [facility] BUN 7 7 - 18 MG/DL 08/17/2024 2:35 PM CDT [facility] CREATININE S/P/B 0.83 0.55 - 1.02 MG/DL 08/17/2024 2:35 PM CDT [facility] SODIUM S/P/B 134(L) 136 - 145 MMOL/L 08/17/2024 2:35 PM CDT [facility] POTASSIUM S/P/B 3.6 3.5 - 5.1 MMOL/L 08/17/2024 2:35 PM CDT [facility] CHLORIDE S/P/B 103 97 - 115 MMOL/L 08/17/2024 2:35 PM CDT [facility] CO2 27.2 21 - 32 MMOL/L 08/17/2024 2:35 PM CDT [facility] CALCIUM S/P/B 9.0 8.5 - 10.1 MG/DL 08/17/2024 2:35 PM CDT [facility] ANION GAP 3.8 2 - 10 MMOL/L 08/17/2024 2:35 PM CDT [facility] BUN CREATININE RATIO 8.5 6 - 26 08/17/2024 2:35 PM CDT [facility] GFR ESTIMATE >90 >90 ML/MIN/1.7 3 M2 08/17/2024 2:35 PM CDT [facility] Comment: NOTE: eGFR is not calculated for patients <18 years of age or gender unknown. This is an estimated GFR calculation using the new CKD EPI creatinine equation without race and so does not require a correction factor for race. This estimated GFR should not be used for calculating drug doses. 08/17/2024 2:11 PM CDT us Claire GUERIN LABORATORY Final Result [facility] [address] [place] [address], [place] [phone] * (ABNORMAL) CBC W/DIFF AUTOMATED (08/17/2024 2:11 PM CDT) Only the most recent of3 resultswithin the time period is included. WBC 9.84 4.5 - 11.0 x10'3/uL 08/17/2024 2:22 PM CDT [facility] RBC 5.29 4.20 - 5.40 x10'6/uL 08/17/2024 2:22 PM CDT [facility] HGB 14.1 12.0 - 16.0 G/DL 08/17/2024 2:22 PM CDT [facility] HCT 41.7 38.0 - 48.0 % 08/17/2024 2:22 PM CDT [facility] MCV 78.8(L) 81.0 - 99.0 FL 08/17/2024 2:22 PM CDT [facility] MCH 26.7(L) 27.0 - 31.0 PG 08/17/2024 2:22 PM CDT [facility] MCHC 33.8 32.0 - 36.0 G/DL 08/17/2024 2:22 PM CDT [facility] RDW 15.5(H) 11.5 - 14.5 % 08/17/2024 2:22 PM CDT [facility] PLT 253 130 - 400 x10'3/uL 08/17/2024 2:22 PM CDT [facility] MPV 8.0(L) 9.3 - 12.2 FL 08/17/2024 2:22 PM CDT [facility] DIFFERENTIAL TYPE AUTOMATED DIFFERENTIAL 08/17/2024 2:22 PM CDT [facility] NEUTROPHILS % 69.6 % 08/17/2024 2:22 PM CDT [facility] LYMPHOCYTES % 19.0 % 08/17/2024 2:22 PM CDT [facility] MONOCYTES % 6.8 % 08/17/2024 2:22 PM CDT [facility] EOSINOPHILS 2.6 % 08/17/2024 2:22 PM CDT [facility] BASOPHILS 0.7 % 08/17/2024 2:22 PM CDT [facility] IMMATURE GRANS % 1.3 % 08/18/19 2:22 PM CDT [facility] ABS. NEUTROPHILS 6.84 1.80 - 7.70 x10'3/uL 08/17/2024 2:22 PM CDT [facility] ABS. LYMPHOCYTES 1.87 1.00 - 4.80 x10'3/uL 08/17/2024 2:22 PM CDT [facility] ABS. MONOCYTES 0.67 0.24 - 0.86 x10'3/uL 08/17/2024 2:22 PM CDT [facility] ABS. EOSINOPHILS 0.26 0.04 - 0.36 x10'3/uL 08/17/2024 2:22 PM CDT [facility] ABS. BASOPHILS 0.07 0.01 - 0.08 x10'3/uL 08/17/2024 2:22 PM CDT [facility] ABS. IMMATURE GRANULOCYTES 0.13 0.00 - 0.49 x10'3/uL 08/17/2024 2:22 PM CDT [facility] 08/17/2024 2:11 PM CDT us Claire GUERIN LABORATORY Final Result [facility] [address] [place] [address], * Incision/Drainage (06/18/2024 8:52 PM CDT) Narrative Fidel Roberts MD - 06/18/2024 8:52 PM CDT Fidel Roberts MD 06/18/2024 8:53 PM Incision/Drainage Date/Time: 06/18/2024 8:52 PM Performed by: Fidel Roberts MD Authorized by: Fidel Roberts MD Consent: Consent obtained: Verbal Consent given by: Patient Risks discussed: Bleeding and incomplete drainage Alternatives discussed: No treatment and delayed treatment [place] protocol: Patient identity confirmed: Verbally with patient Location: Type: Abscess Size: 3 cm x 2 cm Location: left groin. Sedation: Sedation type: None Anesthesia: Anesthesia method: Local infiltration Local anesthetic: Lidocaine 1% w/o epi Procedure type: Complexity: Simple Procedure details: Ultrasound guidance: no Needle aspiration: no Incision types: Single straight Wound management: Probed and deloculated Drainage: Bloody and purulent Drainage amount: Moderate Packing materials: 1/2 in iodoform gauze Post-procedure details: Procedure completion: Tolerated well, no immediate complications us Fidel Roberts MD PROCEDURE/MINOR SURGICA L ORDERABLES Final Result * (ABNORMAL) COMPREHENSIVE METABOLIC PANEL (06/18/2024 8:01 PM CDT) Only the most recent of2 resultswithin the time period is included. GLUCOSE 351(H) 70 - 99 MG/DL 06/18/2024 8:58 PM CDT [facility] BUN 7 7 - 18 MG/DL 06/18/2024 8:58 PM CDT [facility] CREATININE S/P/B 0.73 0.55 - 1.02 MG/DL 06/18/2024 8:58 PM CDT [facility] SODIUM S/P/B 134(L) 136 - 145 MMOL/L 06/18/2024 8:58 PM CDT [facility] POTASSIUM S/P/B 3.5 3.5 - 5.1 MMOL/L 06/18/2024 8:58 PM CDT [facility] CHLORIDE S/P/B 101 97 - 115 MMOL/L 06/18/2024 8:58 PM CDT [facility] CO2 24.5 21 - 32 MMOL/L 06/18/2024 8:58 PM CDT [facility] CALCIUM S/P/B 8.4(L) 8.5 - 10.1 MG/DL 06/18/2024 8:58 PM T [facility] BILIRUBIN TOTAL S/P/B 0.6 0.2 - 1.2 MG/DL 06/18/2024 8:58 PM T [facility] Comment: THIS ASSAY IS NOT RECOMMENDED FOR PATIENTS UNDERGOING TREATMENT WITH ELTROMBOPAG DUE TO THE POTENTIAL FOR FALSELY ELEVATED RESULTS. TOTAL PROTEIN S/P/B 8.0 6.4 - 8.2 G/DL 06/18/2024 8:58 PM T [facility] ALBUMIN S/P/B 3.2(L) 3.4 - 5.0 G/DL 06/18/2024 8:58 PM T [facility] AST 11(L) 15 - 37 U/L 06/18/2024 8:58 PM T [facility] ALT 36 14 - 55 U/L 06/18/2024 8:58 PM T [facility] ALKALINE PHOSPHATASE S/P/B 72 50 - 136 U/L 06/18/2024 8:58 PM T [facility] ANION GAP 8.5 2 - 10 MMOL/L 06/18/2024 8:58 PM T [facility] BUN CREATININE RATIO 9.6 6 - 26 06/18/2024 8:58 PM [facility] A/G RATIO 0.7(L) 1.0 - 2.0 RATIO 06/18/2024 8:58 PM [facility] GFR ESTIMATE >90 >90 ML/MIN/1.7 3 M2 06/18/2024 8:58 PM [facility] Comment: NOTE: eGFR is not calculated for patients <18 years of age or gender unknown. This is an estimated GFR calculation using the new CKD EPI creatinine equation without race and so does not require a correction factor for race. This estimated GFR should not be used for calculating drug doses. 06/18/2024 8:01 PM CDT Caleb GUERIN LABORATORY Final Resul t Performing Organization Address [facility] Co de Phone Number [facility] [address] [place] [id number], * TROPONIN, QUANT (06/04/2024 9:21 AM CDT) Only the most recent of2 resultswithin the time period is included. TROPONIN I HIGH SENSITIVITY 4 <54 ng/L 06/04/2024 9:58 AM CDT [facility] Comment: HIGH DOSES OF BIOTIN, TROPONIN-SPECIFIC AUTOANTIBODIES, AND ANTIBODY THERAPY CONTAINING HAMA MAY INTERFERE WITH THIS TEST RESULT. CORRELATION TO CLINICAL HISTORY AND PRESENTATION RECOMMENDED. 06/04/2024 9:21 AM CDT Sp Miramontes MD LABORATORY Final Result Performing Organization Address [facility] Co de Phone Number [facility] [address] [place] [id number], * CTA CHEST (06/04/2024 8:39 AM CDT) Anatomical Region Laterality Modality Chest Computed Tomogra phy 06/04/2024 8:42 AM CDT Impressions 06/04/2024 8:43 AM CDT IMPRESSION: 1. No evidence of pulmonary embolism. No acute findings. Ordered By: SP MIRAMONTES Interpreted By: Sammy Valdes MD, 06/04/2024 8:42 AM Narrative 06/04/2024 8:43 AM CDT [facility] [address] [place], [place] [address] CTA CHEST WITH CONTRAST PULMONARY EMBOLISM PROTOCOL Clinical history: Chest pain, shortness of breath. Technique: Dynamic helical images of the chest were obtained after the patient received 100 mL of Isovue 370 nonionic intravenous contrast through an IV in the right antecubital fossa. Images are reviewed in axial, sagittal, and three-dimensional reformatted views. A dose lowering technique was used for this procedure, which may include, but is not limited to, dose reduction technique, automated exposure control, the use of iterative reconstruction, and ALARA (As Low As Reasonably Achievable) / Image Gently techniques. 3-D MIP formatted images were also obtained and are made available for review. Comparison: May 29, 2023. FINDINGS: The obtained images demonstrate good opacification of the pulmonary vasculature. No intraluminal filling defects are observed. There is no evidence of pulmonary embolism. The heart appears normal in size and morphology. No significant pericardial effusion is seen. No pathologically enlarged lymph nodes are present within the mediastinum or betty. No axillary adenopathy is observed. The great vessels are within normal limits. Pulmonary windows reveal the lungs to be clear bilaterally. No acute consolidations, effusions, or significant pulmonary nodules are observed. Images of the upper abdomen demonstrate the visualized portion of liver, spleen, and adrenal glands to be within normal limits. Procedure Note Sammy Valdes MD - 06/04/[address] [address] CTA CHEST WITH CONTRAST PULMONARY EMBOLISM PROTOCOL Clinical history: Chest pain, shortness of breath. Technique: Dynamic helical images of the chest were obtained after thepatient received 100 mL of Isovue 370 nonionic intravenous contrastthrough an IV in the right antecubital fossa. Images are reviewed inaxial, sagittal, and three-dimensional reformatted views. A dose loweringtechnique was used for this procedure, which may include, but is notlimited to, dose reduction technique, automated exposure control, the useof iterative reconstruction, and ALARA (As Low As Reasonably Achievable) /Image Gently techniques. 3-D MIP formatted images were also obtained and are made available forreview. Comparison: May 29, 2023. FINDINGS: The obtained images demonstrate good opacification of the pulmonaryvasculature. No intraluminal filling defects are observed. There is noevidence of pulmonary embolism. The heart appears normal in size and morphology. No significantpericardial effusion is seen. No pathologically enlarged lymph nodes arepresent within the mediastinum or betty. No axillary adenopathy isobserved. The great vessels are within normal limits. Pulmonary windows reveal the lungs to be clear bilaterally. No acuteconsolidations, effusions, or significant pulmonary nodules areobserved. Images of the upper abdomen demonstrate the visualized portion of liver,spleen, and adrenal glands to be within normal limits. IMPRESSION: 1. No evidence of pulmonary embolism. No acute findings. Ordered By: SP MIRAMONTES Interpreted By: Sammy Valdes MD, 06/04/2024 8:42 AM Sp Miramontes MD CT Final Result * XR CHEST PORTABLE (06/04/2024 7:57 AM CDT) Anatomical Region Laterality Modality Chest Radiographic Kori ging 06/04/2024 7:58 AM CDT Impressions 06/04/2024 7:59 AM CDT IMPRESSION: 1. No definite acute radiographic abnormalities identified in the chest. Referred By: Interpreted By: Sebastian Santana MD, 06/04/2024 7:58 AM Narrative 06/04/2024 7:59 AM CDT [address] [address] Examination: Chest radiograph Exam time: 06/04/2024 7:42 AM Clinical history: Chest pain Comparison: 04/11/2022 Technique: One view of the chest obtained. Findings: Normal heart size and pulmonary vascularity. No consolidation, pleural effusions, or pneumothorax. Osseous structures reveal no definite acute findings. Procedure Note Sebastian Santana MD - 06/04/[address] [address] Examination: Chest radiograph Exam time: 06/04/2024 7:42 AM Clinical history: Chest pain Comparison: 04/11/2022 Technique: One view of the chest obtained. Findings: Normal heart size and pulmonary vascularity. No consolidation,pleural effusions, or pneumothorax. Osseous structures reveal no definiteacute findings. IMPRESSION: 1. No definite acute radiographic abnormalities identified in thechest. Referred By: Interpreted By: Sebastian Santana MD, 06/04/2024 7:58 AM us Sp Miramontes MD GENERAL IMAGING Final Result * ECG 12 lead (06/04/2024 7:29 AM CDT) 06/04/2024 7:[address] 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 : 1985 Requested By: SP MIRAMONTES Order Number: [id number] Reading MD: Maritza Gibbs Measurements Intervals [place] Rate: 99 P: 1 MN: 121 QRS: 6 QRSD: 100 T: 24 QT: 346 QTc: 444 Interpretive Statements SINUS RHYTHM Compared to ECG 04/11/2022 15:57:50 Sinus tachycardia no longer present Procedure Note Maritza Gibbs MD - 06/04/[address] Test Date: 2024-06-04 Pat Name: LATESHA DOUGHERTY Department: 41 Room: [facility] Gender: Female Clamp Forklift Operator: [id number] : 1985 Requested By: SP MIRAMONTES Order Number: [id number] Reading MD: Maritza Gibbs Measurements Intervals [place] Rate: 99 P: 1 MN: 121 QRS: 6 QRSD: 100 T: 24 QT: 346 QTc: 444 Interpretive Statements SINUS RHYTHM Compared to ECG 04/11/2022 15:57:50 Sinus tachycardia no longer present Sp Miramontes MD ECG ORDERABLES Final Result Performing Organization Address City/[facility]/ZIP Co de Phone Number [facility] RAD * (ABNORMAL) HEMOGLOBIN, GLYCOSYLATED (03/17/2024 5:30 AM SUPER[employer]OR [employer]) HGB A1C 9.6(H) <5.7 % 03/17/2024 12:29 PM [employer] [facility] Comment: ADA GUIDELINES 2010 5.7 TO 6.4% INCREASED RISK OF DIABETES > OR = 6.5% CONSISTENT WITH DIABETES ESTIMATED AVG GLUCOSE 229 mg/dL 03/17/2024 12:29 PM [employer] [facility] 03/17/2024 5:30 AM [employer] us Gibson Werner MD LABORATORY Final Result [facility] [address] [place] [address], [place] [phone] * (ABNORMAL) LIPID PANEL (03/17/2022 7:04 AM [employer]) CHOLESTEROL 149 <200 MG/DL 03/17/2022 7:56 AM [employer] [facility] TRIGLYCERIDES 175(H) <150 MG/DL 03/17/2022 7:56 AM [facility] HDL 34(L) >40.0 MG/DL 03/17/2022 7:56 AM [facility] LDL (CALCULATED) 80 <100 MG/DL 03/17/2022 7:56 AM [facility] NON HDL CHOLESTEROL 115 <130 MG/DL 03/17/2022 7:56 AM [facility] CHOL/HDL RATIO 4.4 0.0 - 4.5 03/17/2022 7:56 AM [facility] VLDL CALCULATION 35 5 - 55 MG/DL 03/17/2022 7:56 AM [facility] LIPID INTERPRETATION 03/17/2022 7:56 AM [facility] Comment: NIH CONCENSUS REPORT RECOMMENDATIONS: ADULT CHILD LOW RISK: CHOLESTEROL <200 <170 TRIGLYCERIDE <150 --- HDL >=60 --- LDL <100 <110 BORDERLINE: CHOLESTEROL 200-239 170-199 TRIGLYCERIDE 150-199 --- HDL 40-59 --- LDL 100-159 110-129 HIGH RISK: CHOLESTEROL >=240 >=200 TRIGLYCERIDE >=200 --- HDL <40 --- LDL >=160 >=130 03/17/2022 7:04 AM [employer] Inocencio Cates MD LABORATORY Final Result [facility] [address] [place] [address], [place] [phone] from Last 3 Months or Most Recently Relevant to Health Maintenance Insurance [facility] Advance Directives * Full Code (Latest Code Status on File) Date Activated Date Inactivated Comments 03/16/2024 4:54 PM 03/19/2024 2:49 PM * Full Code Date Activated Date Inactivated Comments 06/18/2023 10:09 PM 06/19/2023 3:51 PM * Full Code Date Activated Date Inactivated Comments 05/29/2023 8:04 PM 06/02/2023 4:11 PM * Full Code Date Activated Date Inactivated Comments 04/23/2023 7:19 PM 04/24/2023 8:02 PM * Full Code Date Activated Date Inactivated Comments 03/30/2022 7:39 PM 03/31/2022 3:16 PM Care Teams Print Line Operator Relationship Specialty Start Date End Date Jessie Shah MD [address] [id number] PCP - General FAMILY PRACTICE 10/27/19
--- NOTE | 2024-08-20 19:01 | ECG_ITS ---
Test Date: 2024-08-20 19:12:28 Measurements Intervals [place] Rate: 108 P: -5 [place]: 130 QRS: -19 QRSD: 100 T: 17 QT: 330 QTc: 444 Interpretive Statements SINUS TACHYCARDIA POOR R-WAVE PROGRESSION BORDERLINE ECG No previous ECG available for comparison Electronically Signed On 08-21-2024 12:34:04 CDT by Caleb Roach M.D.
--- NOTE | 2024-08-20 19:11 | PC.NURSE ---
JULIAN Levine notified of pt. abnormal VS. Pt. is asymptomatic. CP protocol initiated per JULIAN.
[2024-08-20 19:24] LABS: Hematocrit 45.3 % (37.0-47.0); Hemoglobin 14.9 g/dL (12.0-15.0); Immature Granulocyte Percent A 0.9 % (0-0.5); Lymphocytes Absolute Auto 2.32 K/mm3 (0.9-3.2); Mean Corpuscular HGB Conc 32.9 g/dl (32-36); Mean Corpuscular Hemoglobin 26.1 pg (26-34); Mean Corpuscular Volume 79.5 fl (80-100); Nucleated Red Blood Cells Absolute Auto 0.000 K/mm3 (0.0-0.012); Nucleated Red Blood Cells Perc 0.0 % (0.0-0.2); Platelet Count Result 264 k/mm3 (150-375); Red Blood Count 5.70 M/mm3 (4.2-5.4); White Blood Count 9.3 K/mm3 (4.5-10.0)
[2024-08-20 19:34] LABS: Alanine Aminotransferase 44 U/L (6-35); Albumin Level 4.2 g/dL (3.5-5.1); Alkaline Phosphatase 66 U/L (38-126); Anion Gap 9 mmol/L (4-12); Aspartate Amino Transferase 26 U/L (14-36); Bilirubin,Total 0.8 mg/dL (0.2-1.3); Blood Urea Nitrogen 10 mg/dL (7-17); Calcium 9.5 mg/dL (8.4-10.2); Carbon Dioxide 24 mmol/L (22-30); Chloride 101 mmol/L (98-107); Estimated CRCL calculation 146 ml/min; Estimated Glomerular Filt Rate > 60; Glucose 349 mg/dL (65-110); Lipase 78 U/L (23-300); Potassium 3.8 mmol/L (3.4-5.0); Sodium 134 mmol/L (137-145); Total Protein 8.4 g/dL (6.3-8.2)
[2024-08-20 19:39] LABS: INR 1.0; Prothrombin Time 13.2 Seconds (11.1-14.7)
[2024-08-20 19:40] LABS: Partial Thromboplastin Time 26.8 Seconds (22.3-36.8)
[2024-08-20 19:44] LABS: Troponin I < 0.012 ng/mL (0.000-0.034)
--- NOTE | 2024-08-20 19:49 | ED_ITS ---
HPI - Skin/Abscess/Foreign Bdy General Chief complaint: Skin/Abscess/Foreign Body Stated complaint: active cyst on under carriage Time Seen by Provider: 08/20/24 19:25 Source: patient and family (Mother) Mode of arrival: ambulatory Limitations: no limitations History of Present Illness HPI narrative: 39-year-old female presents with report of a cyst/lesion at the left side of her vulva. She states this was lanced in May but started to flare again on Monday. She denies any drainage appear she states the pain is 10/10 in severity. History of hidradenitis supurtiva. Her primary care physician is Dr. Elise ('s WINDOWS SERVER ENGINEER). No antibiotic allergies. No history of MRSA. She has a history of hypertension and takes lisinopril hydrochlorothiazide at night, has not yet taken this evening's dose. Denies any chest pain, headache, shortness of breath. She is on metformin for her diabetes mellitus. Had previously been on Wegovy but it made her sick. Denies any frequency urgency dysuria or hematuria. Denies any vaginal bleeding or discharge. Her last menstrual period was March of 2006 as she has an IUD that has been subsequently changed. No fevers or chills. No history of sexually transmitted infections. Does not currently have an Ob Gyne. Related Data Allergies Allergy/AdvReac Type Severity Reaction Status Date / Time No Known Allergies Allergy Unknown Verified 07/18/24 07:37 [facility] Past Medical History Medical History IUD (intrauterine device) in place Amenorrhea Non-insulin dependent diabetes mellitus Anxiety Hidradenitis suppurativa Polycystic ovarian syndrome Hypertension Surgical History Surgical History H/O skin graft Multiple cyst excision which required additional skin grafting due to wound. Family History Family History Father Hypertension Depression Heart disease Alcohol abuse Mother Diabetes mellitus Hypertension Depression Cerebrovascular accident Sibling Breast cancer Depression Grandparent Alcohol abuse Diabetes mellitus Hypertension Depression Heart disease Cerebrovascular accident Other Family history non-contributory Social History Social History Smoking status: Never smoker Alcohol intake: current Substance use: never Substance use type: does not use Exam 2 Narrative: GENERAL: Well-appearing, well-nourished, in moderate acute distress. Appears uncomfortable. HEAD: Normocephalic, atraumatic. EYES: Non injected, non icteric ENT: Nares clear, no rhinorrhea or epistaxis. Gross auditory acuity intact. NECK: Supple. No meningismus. CHEST: Speaking in full sentences. No respiratory distress. HEART: Regular rate and rhythm. ABDOMEN: Morbidly obese but Soft, nondistended. EXTREMITIES: Normal range of motion. No lower extremity edema. SKIN: Warm, dry. : 2x2 Focal erythematous fluid collection with central white area noted inferior to left labia, at left vulva. Enlarged and erythematous. Distinctly tender to palpation, notably indurated. Patient also has multiple scars along right upper extremity, under pannus, in left inguinal crease, and adjacent to the current abscess. These do not appear indurated or erythematous and are nontender. NEURO: No focal deficits. Alert and oriented. Answering questions. Following commands. Normal speech without aphasia or dysarthria. PSYCH: Normal mood and affect. Course Vital Signs Vital signs: Vital Signs Temperature 97.9 F 08/20/24 18:59 Pulse Rate 128 H 08/20/24 18:59 Respiratory Rate 22 H 08/20/24 18:59 Blood Pressure 239/142 H 08/20/24 18:59 Pulse Oximetry 96 08/20/24 18:59 Oxygen Delivery Room Air 08/20/24 18:59 Temperature 98.7 F 08/20/24 21:34 Pulse Rate 104 H 08/20/24 21:34 Respiratory Rate 20 08/20/24 21:34 Blood Pressure 199/123 H 08/20/24 21:34 Pulse Oximetry 100 08/20/24 21:34 Oxygen Delivery Room Air 08/20/24 18:59 Procedures Abscess I/D genital: Date of Incision: 08/20/24 Time of Incision: 20:45 Side (if applicable): left Sedation/analgesia: other (IV Dilaudid prior to ) Local Anesthetic: lidocaine 1% Amount of anesthesia used (mL): 2 Technique: incised with #11 blade Amount of fluid expressed (mL): 5 Irrigation: Yes (indirectly, with lidocaine ) Packing used?: none I&D Results: Pus and Blood Complications: pain MDM - Skin/Abscess/Foreign Bdy MDM Narrative Medical decision making narrative: Patient presents with a genital abscess inferior to left labia/vulva. In the emergency department she is afebrile vital signs notable for tachycardia, mild tachypnea, and significant hypertension. The tachypnea resolves upon reassessment the tachycardia is improving though still present. Will give 500cc fluid bolus. No leukocytosis, anemia, thrombocytopenia. She is hyperglycemic without anion gap acidosis. Pseudo hyponatremia as it corrects to normal (138/140) in the setting of hyperglycemia. Patient given Dilaudid IV for pain control. She will be given her evening doses of lisinopril and hydrochlorothiazide given her degree of hypertension and the concern that this may raise a flag delaying staff's comfort level with discharge. Lidocaine ordered. Vulvar abscess appreciated but not Labial or Bartholin. PROCEDURE NOTE: Point of care ultrasound (POCUS) used by myself to identify an abscess that is 2 x 2 x 2 cm. Does not appear loculated. Given the degree of pain swelling and tenderness, will do dual antibiotic coverage. Patient given 1st dose of antibiotics in the emergency department the rest of the course will be prescribed. Patient given additional p.o. [place] and IV ketorolac prior to discharge. Differential Diagnosis Differential diagnosis: Likely abscess of skin or subcutaneous tissue and other (Cellulitis, hidradenitis supurtiva; labial abscess; Bartholin gland abscess) Lab Data Attestation: I reviewed the patient's lab results. 08/20/24 19:17 08/20/24 19:17 Labs: Lab Results 08/20/24 Range/Units 19:17 WBC 9.3 (4.5-10.0) K/mm3 RBC 5.70 H (4.2-5.4) M/mm3 Hgb 14.9 (12.0-15.0) g/dL Hct 45.3 (37.0-47.0) % MCV 79.5 L (80-100) fl MCH 26.1 (26-34) pg MCHC 32.9 (32-36) g/dl RDW 15.8 H (11.5-14.5) % Plt Count 264 (150-375) k/mm3 MPV 7.8 (7.4-10.4) fl Immature Gran % (Auto) 0.9 H (0-0.5) % Neut % (Auto) 63.6 (45.5-73.1) % Lymph % (Auto) 25.1 (18.3-44.2) % [place] % (Auto) 6.7 (2.6-8.5) % Eos % (Auto) 3.1 (0-4.4) % Baso % (Auto) 0.6 (0.2-1.2) % Lymph # (Auto) 2.32 (0.9-3.2) K/mm3 [place] # (Auto) 0.6 (0.1-0.6) K/mm3 Eos # (Auto) 0.3 (0-0.3) K/mm3 Baso # (Auto) 0.1 (0.0-0.1) K/mm3 Abs Immat Gran (auto) 0.08 H (0.00-0.031) K/mm3 Absolute Neuts (auto) 5.9 (1.3-6.7) K/mm3 Absolute Nucleated RBC 0.000 (0.0-0.012) K/mm3 Nucleated RBC % 0.0 (0.0-0.2) % PT 13.2 (11.1-14.7) Seconds INR 1.0 APTT 26.8 (22.3-36.8) Seconds Sodium 134 L (137-145) mmol/L Potassium 3.8 (3.4-5.0) mmol/L Chloride 101 (98-107) mmol/L Carbon Dioxide 24 (22-30) mmol/L Anion Gap 9 (4-12) mmol/L BUN 10 (7-17) mg/dL Creatinine 0.56 L (0.7-1.0) mg/dL Estim Creat Clear Calc 146 ml/min Estimated GFR > 60 (59 - ) Glucose 349 H (65-110) mg/dL Calcium 9.5 (8.4-10.2) mg/dL Total Bilirubin 0.8 (0.2-1.3) mg/dL AST 26 (14-36) U/L ALT 44 H (6-35) U/L Alkaline Phosphatase 66 (38-126) U/L Troponin I < 0.012 (0.000-0.034) ng/mL Total Protein 8.4 H (6.3-8.2) g/dL Albumin 4.2 (3.5-5.1) g/dL Lipase 78 (23-300) U/L ECG Data EKG #1: Attestation: I personally reviewed and interpreted this ECG as follows: ECG completion date: 08/20/24 ECG completion time: 19:12 Interpretation: Sinus tachycardia at a rate of 108 beats per minute. IL interval 130. QRS 100. QT/QTC 330/394. Good R-wave progression across the precordial leads. T-wave inversion in lead 3 but otherwise upright in normal in contiguous inferior leads 2 and AVF. No other T-wave inversions. Discharge Plan Discharge Clinical Impression: Hyperglycemia due to diabetes mellitus, Pseudohyponatremia, Hypertension, Abscess of female genitalia, Encounter for incision and drainage procedure Patient Disposition: Home Condition: Stable Instructions: Antibiotic Form, Narcotic Safety (ED), Hypertension (ED), Diabetic Hyperglycemia (ED), Abscess Incision and Drainage (DC), Mediterranean Diet (DC) Additional Instructions: Acetaminophen/Tylenol (maximum 4000 mg per day) is safe to take with NSAIDs (ibuprofen/Motrin) for pain relief. For breakthrough pain a few tablets of a narcotic medication has been prescribed. Keep the area clean warm and dry. It will likely continue to drain over the next several hours to days. You received your 1st dose of antibiotic in the emergency department with rest the course prescribed. Follow-up with your primary care physician. A referral/contact information for an Ob Gyne has been placed if needed. Continue taking all of your medications as prescribed including your medications for diabetes and high blood pressure although you did receive your evening dose of lisinopril/hydrochlorothiazide. Return to the emergency department any new or worsening symptoms Patient Language: Citizen [place] Prescriptions: New ibuprofen 600 mg tablet 600 mg PO TID PRN (Reason: pain) Qty: 30 0RF acetaminophen 500 mg capsule 1,000 mg PO Q6H PRN (Reason: pain) Qty: 30 0RF oxycodone 5 mg tablet 5 mg PO Q8H PRN (Reason: pain) Qty: 7 0RF cephalexin 500 mg tablet 500 mg PO Q6H 5 Days Qty: 19 0RF Rx Instructions: received first dose in ED 7/ PM sulfamethoxazole-trimethoprim [Bactrim DS] 800-160 mg tablet 1 tablet PO Q12H 5 Days Qty: 9 0RF Rx Instructions: received first dose in ED 7/1 PM No Action albuterol sulfate [Ventolin HFA] 90 mcg/actuation HFA aerosol inhaler 1 inh inhalation Q4H PRN (Reason: shortness of breath or wheezing) Qty: 6.7 0RF insulin glargine [Basaglar KwikPen U-100 Insulin] 100 unit/mL (3 mL) insulin pen 10 unit subcut QPM Qty: 15 0RF dapagliflozin propanediol [Farxiga] 10 mg tablet 10 mg PO DAILY Qty: 90 3RF Mounjaro 5 mg/0.5 mL pen injector 5 mg subcut WEEKLY Qty: 2 0RF lisinopril-hydrochlorothiazide 20-12.5 mg tablet 1 tablet PO DAILY Qty: 90 0RF (DME) OneTouch Ultra Test Strip See Rx Instructions .Route Qty: 100 0RF Rx Instructions: As directed (DME) blood-glucose meter [[facility]Touch Ultra2 Meter] [facility] See Rx Instructions .Route Qty: 1 0RF Rx Instructions: As directed trazodone 50 mg tablet 50 mg PO QHS PRN (Reason: insomnia) Qty: 90 0RF Follow-up/Referrals: Savage Carias MD [Physician] - (BISQUE WARE DIPPER) Sammy Dahl MD [Primary Care Provider] - Stand Alone Forms: Work/School Release IP Time of Disposition: 21:14
[2024-08-20] MEDS: HYDROmorphone HCL INJ (*CRX) 2 MG/ML VIAL 1 MG IV PUSH (20:07)
[2024-08-20] MEDS: SODIUM CHLORIDE 0.9% IV 500 ML 999 ML IV CONT (20:07)
[2024-08-20] MEDS: LIDOCAINE 1% LOCAL INJ 10 ML VIAL INFILTRATE (20:12)
--- OUTSIDE RECORDS SUMMARY | 2024-08-20 20:22 | XMS_ITS | Encounter Summary ---
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
--- OUTSIDE RECORDS SUMMARY | 2024-08-20 20:22 | XMS_ITS | Encounter Summary ---
Author Organization [facility] Address [address] [place] [address] Care Team Providers Care Middle Card Tender Name Role Phone Miguel A Kan MD Primary Care Provider [phone] Encounter Details Date Type Department Care Team (Late st Contact Info) Description 10/30/2002 Outpatient Historical [facility] 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
--- OUTSIDE RECORDS SUMMARY | 2024-08-20 20:22 | XMS_ITS | Encounter Summary ---
Author Organization [facility] Address 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
--- OUTSIDE RECORDS SUMMARY | 2024-08-20 20:22 | XMS_ITS | Encounter Summary ---
Author Organization [facility] Address [address] [place] [address] Care Team Providers Care Driller And Reamer Name Role Phone Miguel A Kan MD Primary Care Provider [phone] Encounter Details Date Type Department Care Team (Latest Contact Info) Description 05/12/2003 [facility] 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
--- OUTSIDE RECORDS SUMMARY | 2024-08-20 20:22 | XMS_ITS | Encounter Summary ---
Author Organization [employer] Address [address] [place] [address] Care Team Providers Care Mixer Lever Operator Name Role Phone Miguel A Kan MD Primary Care Provider [phone] Encounter Details Date Type Department Care Team (Latest Contact Info) Description 10/16/2003 Outpatient Historical [facility] Latrice Vilchis, DO [address] 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
--- OUTSIDE RECORDS SUMMARY | 2024-08-20 20:22 | XMS_ITS | Clinical Summary ---
Author Organization [facility] [employer] Address [facility] [place] [address] Care Team Providers Care Side Sawyer Name Role Phone Unavailable Primary Care Provider Unavailabl e Source Comments [facility] [employer],non-owned Affiliates and Associated Physician Practices is amultiple site organization consisting of ambulatory clinics and hospital sitesin [place], [place], [place] and [place]. This disclosure is being madepursuant to the Care Everywhere program and may not contain all information available regarding this patient. Last updated 17.[facility] [employer] Allergies No known active allergies Medications * [...] on file Legal Sex Female 5:33 AM CONSUMER AFFAIRS DIRECTOR Gender Identity Not on file Sexual Orientation Not on file Last Filed Vital Signs Vital Sign Reading Time Taken Comments Blood Pressure 163/107 03/16/2017 12:49 PM CONSUMER AFFAIRS DIRECTOR Pulse 97 03/16/2017 12:49 PM CONSUMER AFFAIRS DIRECTOR Temperature 36.6 C (97.8 F) 06/25/2014 2:48 PM CDT Respiratory Rate 22 06/25/2014 2:48 PM CDT Oxygen Saturation 93% 06/25/2014 2:48 PM CDT Inhaled Oxygen Concentration - - Weight 143.4 kg (316 lb 3.2 oz) 03/16/2017 1:26 PM CONSUMER AFFAIRS DIRECTOR Height 163.8 cm (5' 4.5) 03/16/2017 1:26 PM CONSUMER AFFAIRS DIRECTOR Body Mass Index 53.44 03/16/2017 1:26 PM CONSUMER AFFAIRS DIRECTOR Plan of Treatment Health Maintenance Due Date [...]
--- OUTSIDE RECORDS SUMMARY | 2024-08-20 20:22 | XMS_ITS | Encounter Summary ---
Author Organization [facility] Address [address] [place] [address] Care Team Providers Care Furnace Tapper Name Role Phone Miguel A Kan MD Primary Care Provider [phone] Encounter Details Date Type Department Care Team (Latest Contact Info) Description 04/14/2003 Outpatient Historical [facility] N[place], [place] [address] 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
--- OUTSIDE RECORDS SUMMARY | 2024-08-20 20:22 | XMS_ITS | Encounter Summary ---
Author Organization [facility] Address [address] [place] [address] Care Team Providers Care Parking Lot Chauffeur Name Role Phone Miguel A Kan MD Primary Care Provider [phone] Encounter Details Date Type Department Care Team (Late st Contact Info) Description 05/12/2004 Outpatient Historical [facility] Internal Medicine Medical [place] [facility] [address] [address] Erick Drake MD NO ADDRESS ON FILE Social History Tobacco Use Types Packs/Day Years Used Date Smoking Tobacco: Never Assessed Comments Unknown Sex and Gender Information Value Date Recorded Sex Assigned at Not on file Legal Sex Female 4:18 AM ALGOLOGIST Gender Identity Not on file Sexual Orientation Not on file documented as of this encounter Plan of Treatment Not on file documented as of this encounter Visit Diagnoses Not on filedocumented in this encounter Care Teams Parking Lot Chauffeur Relationship Specialty Start Date End Date Miguel A Kan MD [address] [facility] [address] [place] [address] PCP - General Internal Medicine 04/26/11 05/02/16 documented as of this encounter
--- OUTSIDE RECORDS SUMMARY | 2024-08-20 20:22 | XMS_ITS ---
Author Organization [employer] [facility] [place] [employer]. foil stamp operator KONZA Care Team Providers Care Bottom Saw Operator Name Role Phone Provider, UrgentCare Unavailable Unavailable NON STAFF, PROVIDER Unavailable Unavailable Geena Moreno APRN, MD, David Unavailable Unavailable Encounters Encounter Date Encounter Type Encounter Diagnosis Care Pro vider Facility Start: 08-26-2023 19:040 End: 08-26-2023 20:02 Patient encounter procedure Hidradenitis suppurativa UrgentCare Provider Geena Moreno APRN [facility] Medications Current Medications Medication Drug Class(es) Dates Sig (Normalized) Sig (Original) (1 source) Start: 08-26-2023 Payers Date Payer Normalized Payer BCBS MULTIPLE BLUE CROSS/BLUE SHIELD AOC7 [id number] 08-26-2023 SELF PAY Self-pay Problems Past or Other Problems Problem Classification Problem Date Last Recorded Documented Date Chronic Condition Indicator Provider Other skin disorders (1 source) Hidradenitis suppurativa 08-26-2023 Episodic Geena Moreno APRN Results Test Name Value Interpretation Reference Range Facility Date Time Result Note No Panel Information Exclude from Patient Surveys (016.VELMAISITS) Referred, Transitioned, or new patient?: Y~(016.MEDHXCLA IM) Patient gives consent for Med History Claim: Y~(ADM.PORTAL) Information given for patient portal and external access: Y~(ADM.PRESSG) Exclude from Patient Surveys: N [facility] Pulse Source ~(016.HIEVISITS ) Referred, Transitioned, or new patient?: Y~(016.MEDHXCLA IM) Patient gives consent for Med History Claim: Y~(ADM.PORTAL) Information given for patient portal and external access: Y~(ADM.PRESSG) Exclude from Patient Surveys: N~(GEN.SMKST) Tobacco Use Status: Never smoker~(QR.BMHP ) High-plan: Y~(QR.BMHPD2) BMI High Follow-Up Plan Done: Counseling~(QR. BMIDN) BMI done: Y~(QR.SMKRA) Tobacco use risk assessment performed?: Y~(RESP.POSAT) Pulse Oximetry: 95~(VS.BP) Blood Pressure: 184/119~(VS.BPL O) Blood Pressure Location: Lt brachial~(VS.BP P) Blood Pressure Position: Sitting~(VS.PUL SES) Pulse Source: Monitor [facility] Pulse Source ~(.EX.COAL) alert: Y~(.EX.CONOA) no acute distress: Y~(.EX.COWD) well developed: Y~(.EX.COWN) well nourished: Y~(.EX.EYAPN) appearance normal, both eyes and all related structures: Y~(.EX.HTEEN) external ears normal: Y~(.EX.HTENN) external nose normal: Y~(.EX.HTMMM) moist mucous membranes: Y~(.EX.HTNI) normal to inspection: Y~(.EX.NLNI) normal visual inspection: Y~(.EX.NUCCN) CN's II-XI intact bilaterally: Y~(.EX.NUME) moves all extremities: Y~(.EX.NUNG) normal gait: Y~(.EX.NUNS) speech normal: Y~(.EX.NUPAL) patient alert: Y~(.EX.NUPOR) patient oriented x3: Y~(.EX.PUINL) normal respiratory effort: Y~(.EX.XTGN) normal to inspection: Y~(016.HIEVISIT S) Referred, Transitioned, or new patient?: Y~(016.MEDHXCLA IM) Patient gives consent for Med History Claim: Y~(ADM.PORTAL) Information given for patient portal and external access: Y~(ADM.PRESSG) Exclude from Patient Surveys: N~(GEN.SMKST) Tobacco Use Status: Never smoker~(QR.BMHP ) High-plan: Y~(QR.BMHPD2) BMI High Follow-Up Plan Done: Counseling~(QR. BMIDN) BMI done: Y~(QR.SMKRA) Tobacco use risk assessment performed?: Y~(RESP.POSAT) Pulse Oximetry: 95~(VS.BP) Blood Pressure: 184/119~(VS.BPL O) Blood Pressure Location: Lt brachial~(VS.BP P) Blood Pressure Position: Sitting~(VS.PUL SES) Pulse Source: Monitor [facility] Vital Signs Date Time Vital Sign Value Performing Clinician Faci lity 08-26-2023 19:44-0400 Body height 160.02 cm [facility] 08-26-2023 19:44-0400 Body weight 131.09 kg [facility] Body height 160.02 [facility] Body mass index (BMI ) [Ratio] 51.2 kg/m2 [facility] Body temperature 98.2 [degF] [facility] Body weight 760686.194 [facility] Pulse Rate 110 [facility] Respiratory rate 22 /min [facility] Additional Source Comments FOR RECORDS PERTAINING TO PATIENTS WHO ARE OR HAVE BEEN ENROLLED IN A CHEMICAL DEPENDENCY/SUBSTANCEABUSE PROGRAM, SOME INFORMATION MAY BE OMITTED. This clinical summary was aggregated from multiple sources. Caution should be exercised in using it in the provision of clinical care. This summary normalizes information from multiple sources, and as a consequence, information in this document may materially change the coding, format and clinical context of patient data. In addition, data may be omitted in some cases. CLINICAL DECISIONS SHOULD BE BASED ON THE PRIMARY CLINICAL RECORDS. [email or web address] provides no warranty or guarantee of the accuracy or completeness of information in this document.The following information is based on time limited clinical information
--- OUTSIDE RECORDS SUMMARY | 2024-08-20 20:22 | XMS_ITS ---
Author Name Auto Generated, Auto Generated Organization [employer] [facility] [employer] Address [address] [place] [address] Phone [phone] Care Team Providers Care Electric Motor Rebuilder Name Role Phone Jeffrey Mackay Unavailable Diamante Diegoica Unavailable [phone] Gissel Begum Unavailable Eagle Elisabeth M Unavailable [...]
--- OUTSIDE RECORDS SUMMARY | 2024-08-20 20:22 | XMS_ITS ---
Author Name Auto Generated, Auto Generated Organization [employer] [facility] Address [address] [place] [address] Phone [phone] Care Team Providers Care Tin Pot Operator Name Role Phone Jeffrey Mackay Unavailable Diamante Diegoica Unavailable [phone] Gissel Begum Unavailable Eagle Elisabeth M Unavailable [...]
--- OUTSIDE RECORDS SUMMARY | 2024-08-20 20:22 | XMS_ITS | Encounter Summary ---
Author Organization [facility] Address [address] [place] [address] Care Team Providers Care Inspector General Name Role Phone Miguel A Kan MD Primary Care Provider [phone] Encounter Details Date Type Department Care Team (Late st Contact Info) Description 06/09/2004 Outpatient Historical [facility] Internal Medicine Medical [place] [facility] [address] [address] Erick Drake MD NO ADDRESS ON FILE Social History Tobacco Use Types Packs/Day Years Used Date Smoking Tobacco: Never Assessed Comments Unknown Sex and Gender Information Value Date Recorded Sex Assigned at Not on file Legal Sex Female 4:18 AM BRASS MOLDER Gender Identity Not on file Sexual Orientation Not on file documented as of this encounter Plan of Treatment Not on file documented as of this encounter Visit Diagnoses Not on filedocumented in this encounter Care Teams Inspector General Relationship Specialty Start Date End Date Miguel A Kan MD [address] [facility] [facility] [address] [place] [address] PCP - General Internal Medicine 04/26/11 05/02/16 documented as of this encounter
--- OUTSIDE RECORDS SUMMARY | 2024-08-20 20:22 | XMS_ITS | Encounter Summary ---
Author Organization [facility] Address [address] [place] [address] Care Team Providers Care Laundry Operator Name Role Phone Miguel A Kan MD Primary Care Provider [phone] Encounter Details Date Type Department Care Team (Latest Contact Info) Description 02/03/2006 Outpatient Historical [facility] Alt[facility]achary brown Pilonidal Cyst without Mention of Abscess (Primary Dx) Social History Tobacco Use Types Packs/Day Years Used Date Smoking Tobacco: Never Assessed Comments Unknown Sex and Gender Information Value Date Recorded Sex Assigned at Not on file Legal Sex Female 4:18 AM ASSEMBLY LINE BRAZER Gender Identity Not on file Sexual Orientation Not on file documented as of this encounter Plan of Treatment Not on file documented as of this encounter Procedures Procedure Name Priority Date/Time Associated Diagnosis Comments HEMOGLOBIN AND HEMATOCRIT Routine 02/03/2006 6:12 AM ASSEMBLY LINE BRAZER POC , URINE Routine 02/03/2006 6:12 AM ASSEMBLY LINE BRAZER documented in this encounter Results * POC , URINE (02/03/2006 6:12 AM ASSEMBLY LINE BRAZER) HCG QUAL URINE Negative Negative INTER FACE SYSTEM SPECIFIC GRAVITY UA 1.030 1.001 - 1.035 INTERFACE SYSTEM 02/03/2006 6:12 AM ASSEMBLY LINE BRAZER us Zachary Phan POINT OF CARE TESTING Final Resu lt INTERFACE SYSTEM Refer to clinic/hospital department * (ABNORMAL) HEMOGLOBIN AND HEMATOCRIT (02/03/2006 6:12 AM ASSEMBLY LINE BRAZER) HEMOGLOBIN 10.6(L) 11.8 - 14.8 g/dL INTERFACE SYSTEM HEMATOCRIT 35.0(L) 35.5 - 44.0 % INTERFACE SYSTEM 02/03/2006 6:12 AM ASSEMBLY LINE BRAZER [facility] HEMATOLOGY ORDERABLES Final Resu lt INTERFACE SYSTEM Refer to clinic/hospital department documented in this encounter Visit Diagnoses Diagnosis Pilonidal cyst without mention of abscess- Primary documented in this encounter Care Teams Laundry Operator Relationship Specialty Start Date End Date Miguel A Kan MD [address] [place] [address] PCP - General Internal Medicine 04/26/11 05/02/16 documented as of this encounter
--- OUTSIDE RECORDS SUMMARY | 2024-08-20 20:22 | XMS_ITS | Encounter Summary ---
Author Organization [facility] Address [address] [place] [address] Care Team Providers Care Primer Expeditor And Drier Name Role Phone Miguel A Kan MD Primary Care Provider Encounter Details Date Type Department Care Team (Late st Contact Info) Description 09/04/2003 Outpatient Historical [facility] Family Medicine [facility] [address] [place] [address] [place] [address] [place] [address] Social History Tobacco Use Types Packs/Day Years Used Date Smoking Tobacco: Never Assessed Comments Unknown Sex and Gender Information Value Date Recorded Sex Assigned at Not on file Legal Sex Female 4:18 AM FLASH OVEN OPERATOR Gender Identity Not on file Sexual Orientation Not on file documented as of this encounter Plan of Treatment Not on file documented as of this encounter Visit Diagnoses Not on filedocumented in this encounter Care Teams Primer Expeditor And Drier Relationship Specialty Start Date End Date Miguel A Kan MD [address] [facility] [address] [place] [address] PCP - General Internal Medicine 04/26/11 05/02/16 documented as of this encounter
--- OUTSIDE RECORDS SUMMARY | 2024-08-20 20:22 | XMS_ITS | Encounter Summary ---
Author Organization [facility] Address [address] [place] [address] Care Team Providers Care Engraved Roller Inspector Name Role Phone Miguel A Kan MD Primary Care Provider [phone] Encounter Details Date Type Department Care Team (Late st Contact Info) Description 04/14/2003 Outpatient Historical [facility] Family Medicine [facility] [address] [facility] [address] [place] [address] Martir Goodson Social History Tobacco Use Types Packs/Day Years Used Date Smoking Tobacco: Never Assessed Comments Unknown Sex and Gender Information Value Date Recorded Sex Assigned at Not on file Legal Sex Female 4:18 AM NUCLEAR CRITICALITY SAFETY ENGINEER Gender Identity Not on file Sexual Orientation Not on file documented as of this encounter Plan of Treatment Not on file documented as of this encounter Visit Diagnoses Not on filedocumented in this encounter Care Teams Engraved Roller Inspector Relationship Specialty Start Date End Date Miguel A Kan MD [address] [facility] [facility] [address] [place], [place] [address] PCP - General Internal Medicine 04/26/11 05/02/16 documented as of this encounter
--- OUTSIDE RECORDS SUMMARY | 2024-08-20 20:22 | XMS_ITS | Referral Summary ---
Author Organization [place] [id number] Address [facility] [place] [address] Care Team Providers Care Staffing Associate Name Role Phone Jessie Shah MD Primary Care Pro vider Allergies No known active allergies Medications levonorgestrel (MIRENA) IUD 1 each by intrauterine route once Active alcohol swabs pads, medicated 1 each by Not Applicable route nightly 01/05/20 21 Active lancets miscIndications:Ty pe 2 diabetes mellitus with hyperglycemia, with long-term current use of insulin ([facility]) Check blood sugar fasting and prior to meals. Also check if having signs of hypoglycemia. Check up to 6 times a day. 100 each 3 01/12/20 21 Active blood glucose diagnostic (glucose blood) stripIndications:T ype 2 diabetes mellitus with hyperglycemia, with long-term current use of insulin ([facility]) Check blood sugar fasting and prior to meals. Also check if having signs of hypoglycemia. Check up to 6 times a day. 100 each 3 01/12/20 21 Active BD Hyacinth 2nd Gen Pen Needle 32 gauge x 5/32 needleIndications: Type 2 diabetes mellitus with hyperglycemia, with long-term current use of insulin ([facility]) Use to inject lantus nightly and trulicity [...] 01/07/2020 Assessment & Plan (04/25/2023 10:54 AM THEATER EDUCATION TEACHER): Uncontrolled Continue metformin XR twice a day Will decrease lantus to 25 units and start humalog 8 units TIDAC Assessment & Plan (07/19/2022 4:12 PM CDT): Uncontrolled Increase metformin XR to twice a day Will try to restart ozempic, advise to check their website for coupon Continue 40 units lantus nightly Assessment & Plan (03/25/2022 10:34 AM THEATER EDUCATION TEACHER): Uncontrolled Change metformin to XR and increase to twice a day Start ozempic Continue 40 units lantus nightly Assessment & Plan (01/11/2021 10:39 AM THEATER EDUCATION TEACHER): Uncontrolled Restart metformin & trulicity Continue lantus, if blood sugar getting too low decrease by a couple units and let me know Assessment & Plan (01/07/2020 1:17 PM THEATER EDUCATION TEACHER): Last a1c 9.8 Will restart metformin and start trulicity to help with weight loss Continue SSI humalog until blood sugar at goal Recurrent major depressive disorder, in remissio n 01/04/2019 Assessment & Plan (07/19/2022 4:13 PM CDT): Stable Continue prozac Assessment & Plan (03/25/2022 10:34 AM THEATER EDUCATION TEACHER): Start prozac Assessment & Plan (04/29/2019 10:53 AM CDT): D/c effexor as felt like a zombie States mood improved Denies SI Assessment & Plan (01/04/2019 1:32 PM THEATER EDUCATION TEACHER): PHQ Screening PHQ-2 Total Score (If total [...] 9.0. Assessment & Plan (04/25/2023 11:03 AM THEATER EDUCATION TEACHER): Reviewed last hospital note Continue antibiotics Assessment & Plan (01/11/2021 10:38 AM THEATER EDUCATION TEACHER): S/p hospitalization with I&D and IV antibiotics, reviewed records Continue clindamycin & rifampin Needs doreen drain removed, advised to call surgeon to schedule follow up DARWIN, desires to see one of his partners so placed new referral, but may need to follow up with him for drain removal Assessment & Plan (01/07/2020 1:16 PM THEATER EDUCATION TEACHER): S/p I&D Following with surgery, who is coordinating home health for twice a day wound dressing changes Assessment & Plan (01/04/2019 1:31 PM THEATER EDUCATION TEACHER): Missed follow up with forming yardage control operator, encouraged to reschedule Assessment & Plan (11/21/2018 9:57 AM CDT): S/p surgical removal and skin grafting on pannus and axilla Flare up on posterior neck currently I&D performed in office today Bactrim Patient has follow up with forming yardage control operator 1.5 weeks Strict return/ED precautions discussed Assessment & Plan (04/04/2018 10:18 AM THEATER EDUCATION TEACHER): Plan to remove some justine/sutures in groin wounds Continue dressing changes to bilateral axillae OR 04/03 for b/l groin debridement, mons debridement, and STSG to b/l axillae; wound vac over all Assessment & Plan (04/10/2018 12:12 PM THEATER EDUCATION TEACHER): Patient initially presented in early February 2018 [...] diet. Assessment & Plan (03/12/2018 7:06 AM THEATER EDUCATION TEACHER): Patient has active draining sites to bilateral [...] 03/20/2013 Assessment & Plan (01/04/2019 1:31 PM THEATER EDUCATION TEACHER): Encouraged to wear CPAP all night Assessment [...] kidney. Assessment & Plan (04/25/2023 10:56 AM THEATER EDUCATION TEACHER): Controlled Continue lisinopril/hctz Assessment & Plan (07/19/2022 4:13 PM CDT): Uncontrolled Restart lisinopril/hctz Follow up 1-2 weeks for nurse visit for recheck Assessment & Plan (01/11/2021 10:39 AM THEATER EDUCATION TEACHER): Uncontrolled Restart lisinopril-hydrochlorothiazide Assessment & Plan (01/07/2020 1:19 PM THEATER EDUCATION TEACHER): BP 138/82 today, above goal (<130/80 with [...] lisinopril Assessment & Plan (01/04/2019 1:43 PM THEATER EDUCATION TEACHER): BP 150/110, 136/92 on repeat Continue 20mg lisinopril Add 12.5mg hctz Assessment & Plan (11/21/2018 9:57 AM CDT): BP 140/100 today, above goal Restart 20mg lisinopril Given DASH diet handout PCOS (polycystic ovarian syndrome) Abdominal wall abscess Resolved Problems Problem Noted Date Diagnosed Date Resolved Date Acute cystitis without hematuria 03/24/2018 11/21/2018 Leukocytosis 03/07/2018 03/10/2018 Assessment & Plan (03/08/2018 6:39 AM THEATER EDUCATION TEACHER): -UA neg -LE duplex negative -on room air -no central line WBC 14 >> 11 afebrile Acute pain 02/26/2018 11/21/2018 Assessment & Plan (04/10/2018 12:11 PM THEATER EDUCATION TEACHER): Continue scheduled gabapentin, acetaminophen, and PRN oxycodone 04/10: Patient discharged with new prescription for acetaminophen, gabapentin 600 mg TID, and oxycodone (#25). Assessment & Plan (03/07/2018 1:41 PM THEATER EDUCATION TEACHER): Scheduled acetaminophen, PRN oxycodone Scheduled bowel regimen [...] on file Legal Sex Female 10:52 PM THEATER EDUCATION TEACHER Gender Identity Not on file Sexual Orientation [...] was last reviewed 2020. Testing performed by: [facility], [address] [place] [address]., [id number] Blood 05/01/2023 11:5 9 PM CDT 05/02/2023 12:13 AM CDT us Alessandro Wang NP LAB BLOOD ORDERABLES Final Resul t [facility] [address] [facility] Department [place] [address] * HEMOGLOBIN A1C (03/16/2022) SCRIBED Hemoglobin A1c 9.1 % us Historical Provider HEALTH MAINTENANCE Final Result * DIABETES EYE EXAM (05/09/2017) SCRIBED DIABETIC DILATED EYE EXAM Normal us Historical Provider HEALTH MAINTENANCE Final Result from Last 3 Months or Most Recently Relevant to Health Maintenance Insurance ACCESS CHOICE [facility] CHOICE PLUS ANTHEM ACCESS CHOICE ANTHEM ACCESS CHOICE Advance Directives For more information, please contact: [phone] * Full Code (Latest Code Status on File) Date Activated Date Inactivated Comments 04/15/2021 11:12 AM 04/21/2021 2:36 PM * Full Code Date Activated Date Inactivated Comments 04/22/2018 4:58 AM 04/27/2018 9:13 PM * Full Code Date Activated Date Inactivated Comments 03/28/2018 2:42 PM 04/10/2018 9:27 PM * Full Code Date Activated Date Inactivated Comments 02/24/2018 6:50 PM 03/12/2018 5:11 PM Care Teams Staffing Associate Relationship Specialty Start Date End Date Jessie Shah MD PCP - General Family Medicine 11/13/18
--- OUTSIDE RECORDS SUMMARY | 2024-08-20 20:22 | XMS_ITS | Encounter Summary ---
Author Organization [facility] Address [address] [place] [address] Care Team Providers Care Flakeboard Line Tender Name Role Phone Miguel A Kan MD Primary Care Provider [phone] Encounter Details Date Type Department Care Team (Latest Contact Info) Description 03/08/2006 Outpatient Historical [facility], [address] [place] Pilonidal Cyst with Abscess (Primary Dx) Social History Tobacco Use Types Packs/Day Years Used Date Smoking Tobacco: Never Assessed Comments Unknown Sex and Gender Information Value Date Recorded Sex Assigned at Not on file Legal Sex Female 4:18 AM WIRE WEAVER CLOTH Gender Identity Not on file Sexual Orientation Not on file documented as of this encounter Plan of Treatment Not on file documented as of this encounter Visit Diagnoses Diagnosis Pilonidal cyst with abscess- Primary documented in this encounter Care Teams Flakeboard Line Tender Relationship Specialty Start Date End Date Miguel A Kan MD [address] [place] [id number] PCP - General Internal Medicine 04/26/11 05/02/16 documented as of this encounter
--- OUTSIDE RECORDS SUMMARY | 2024-08-20 20:22 | XMS_ITS | Encounter Summary ---
Author Organization [facility] Address [address] [place] [address] Care Team Providers Care Archives Director Name Role Phone Miguel A Kan MD Primary Care Provider [phone] Encounter Details Date Type Department Care Team (Late st Contact Info) Description 11/13/2002 Outpatient Historical [facility] [facility] [address] [address] Erick Drake MD NO ADDRESS ON FILE Social History Tobacco Use Types Packs/Day Years Used Date Smoking Tobacco: Never Assessed Comments Unknown Sex and Gender Information Value Date Recorded Sex Assigned at Not on file Legal Sex Female 4:18 AM SPECIALIZED LANGUAGE INSTRUCTOR Gender Identity Not on file Sexual Orientation Not on file documented as of this encounter Plan of Treatment Not on file documented as of this encounter Visit Diagnoses Not on filedocumented in this encounter Care Teams Archives Director Relationship Specialty Start Date End Date Miguel A Kan MD [address] [facility] [address] [place] [address] PCP - General Internal Medicine 04/26/11 05/02/16 documented as of this encounter
--- OUTSIDE RECORDS SUMMARY | 2024-08-20 20:22 | XMS_ITS | Encounter Summary ---
Author Organization [employer] [employer] Address [address] [place] [address] Care Team Providers Care Gaming Cage Worker Name Role Phone Miguel A Kan MD [...] on file Legal Sex Female 4:18 AM ENTRY LEVEL CHEMIST Gender Identity Not on file Sexual Orientation [...] clinical evidence. 12/03/2005 9:49 AM CDT [facility] CHEMISTRY ORDERABLES Final Resul t [...] ORDERABLES Final Re sult Performing Organization Address City/[facility] Co de Phone Number INTERFACE SYSTEM Refer to clinic/hospital department documented in this encounter Visit Diagnoses Diagnosis Pilonidal cyst with abscess- Primary documented in this encounter Care Teams Gaming Cage Worker Relationship Specialty Start Date End Date Miguel A Kan MD [address] [place] [id number] PCP - General Internal Medicine 04/26/11 05/02/16 documented as of this encounter
--- OUTSIDE RECORDS SUMMARY | 2024-08-20 20:22 | XMS_ITS | Encounter Summary ---
Author Organization [facility] Address [address] [place] [address] Care Team Providers Care Sheet Layer Name Role Phone Miguel A Kan MD Primary Care Provider [phone] Encounter Details Date Type Department Care Team (Late st Contact Info) Description 01/10/2003 Outpatient Historical [facility] Family Medicine [facility] [address] [place] [address] [place] [address] [place] [address] Social History Tobacco Use Types Packs/Day Years Used Date Smoking Tobacco: Never Assessed Comments Unknown Sex and Gender Information Value Date Recorded Sex Assigned at Not on file Legal Sex Female 4:18 AM ENTRY DRIVER OPERATOR Gender Identity Not on file Sexual Orientation Not on file documented as of this encounter Plan of Treatment Not on file documented as of this encounter Visit Diagnoses Not on filedocumented in this encounter Care Teams Sheet Layer Relationship Specialty Start Date End Date Miguel A Kan MD [address] [facility] [address] [place] [address] PCP - General Internal Medicine 04/26/11 05/02/16 documented as of this encounter
--- OUTSIDE RECORDS SUMMARY | 2024-08-20 20:22 | XMS_ITS | Clinical Summary ---
Author Organization [facility] Address [address] [place] [address] Phone Care Team Providers Care Ict Business Analyst Name Role Phone Unavailable Primary Care Provider [...] different from the original. Dr. Espinoza - GRADES 7 8 TUTOR Problem Noted Date Diagnosed Date Generalized anxiety [...] on file Legal Sex Female 4:18 AM COMMISSION BROKER Gender Identity Not on file Sexual Orientation Not on file Occupation Industry Job Start Date Job End Date Not on file Not on file Not on file Not on file Last Filed Vital Signs Vital Sign Reading Time Taken Comments Blood Pressure 154/92 04/01/2016 1:24 PM COMMISSION BROKER Pulse 104 04/01/2016 1:24 PM COMMISSION BROKER Temperature 37.7 C (99.8 F) 04/01/2016 1:24 PM COMMISSION BROKER Respiratory Rate 18 06/15/2014 12:30 AM CDT Oxygen Saturation 97% 04/01/2016 1:24 PM COMMISSION BROKER Inhaled Oxygen Concentration - - Weight 153.3 kg (338 lb) 04/01/2016 1:24 PM COMMISSION BROKER Height 165.1 cm (5' 5) 04/01/2016 1:24 PM COMMISSION BROKER Body Mass Index 56.25 04/01/2016 1:24 PM COMMISSION BROKER Plan of Treatment Health Maintenance Due Date [...] cervix HEMOGLOBIN A1C Routine 04/30/2011 8:19 AM COMMISSION BROKER from Last 3 Months or Most Recently Relevant to Health Maintenance Results * CERV/VAG CYTOPATH, THIN PREP IMAGR RFLX HPV (05/09/2011 9:00 PM CDT) LAST MENSTRUAL PERIOD 04/01/2011 [facility] CYTOLOGY INFECTION Shift in vaginal yris suggestive of bacterial vaginosis. [facility] Breaker Off Pap Comment This Pap test has been evaluated with computer assisted technology. Based on the cytology result, reflex High Risk HPV DNA testing was not performed. [facility] PAP INTERP Negative for intraepithelial lesion or malignancy. [facility] ADEQUACY: Satisfactory for evaluation. Endocervical/trans formation zone component absent. [facility] CLINICAL INFORMATION PT IS HI RISK [facility] SOURCE Cervix, Endocervix [facility] PREV PAP: Information not provided [facility]. [facility] [employer] ST: MVB, CT(ASCP) [facility] REVIEW CYTOTECHNOLOGI ST: LMT, CT(ASCP) [facility] Comment: Lab test performed by: [facility] [address] [place] [address] CHRIS BUSTOS DO PREV BX: NO [facility] Endocervical 05/09/2011 9:00 PM CDT 05/09/2011 9:17 PM CDT Comment:ENDOCERVICAL Narrative [facility] - 05/11/2011 6:18 AM CDT Fax results to [phone] Marsha Fink NP PATHOLOGY/CYTOLOGY ORDERABLES F inal Result Performing Organization Address [place]/[facility] de Phone Number [facility] CLVT# [id number] [address] [place] [id number] * HEMOGLOBIN A1C (04/30/2011 8:19 AM COMMISSION BROKER) HEMOGLOBIN A1C 5.2 <5.7 % of total Hgb [facility] Comment: Decreased risk of diabetes <5.7 Decreased risk of diabetes 5.7-6.0 Increased risk of diabetes 6.1-6.4 Higher risk of diabetes > or = 6.5 Consistent with diabetes Standards of Medical Care in Diabetes-2010. Diabetes Care, 33(Supp 1): S1-S61,2010. Test Performed at: [facility] [place] [address] [place] [address] CHRIS BUSTOS DO,MPH 04/30/2011 8:19 AM COMMISSION BROKER Miguel A Kan MD CHEMISTRY ORDERABLES Final Resul t INTERFACE SYSTEM Refer to clinic/hospital department [facility] [address] [place] [address] from Last 3 Months or Most Recently Relevant to Health Maintenance Insurance [facility] [id number] Advance Directives For more information, please contact: [phone] * Full Code (Latest Code Status on File) Date Activated Date Inactivated Comments 03/12/2013 6:33 PM 03/15/2013 12:32 PM
--- OUTSIDE RECORDS SUMMARY | 2024-08-20 20:22 | XMS_ITS | Encounter Summary ---
Author Organization [facility] Address [address] [place] [address] Care Team Providers Care Inside Account Executive Name Role Phone Jessie Shah MD Primary Care Pro vider Encounter Details Date Type Department Care Team (Late st Contact Info) Description 03/14/2018 Documentation [facility] Surgeon [address] [place] [address] Damon Denis MD PhD [address] [place] [address] Social History Tobacco Use Types Packs/Day Years Used Date Smoking Tobacco: Never Smokeless Tobacco: Never Alcohol Use Standard Drinks/Week Comments Yes 0 (1 standard drink = 0.6 oz pur e alcohol) rare use Comments No Sex and Gender Information Value Date Recorded Sex Assigned at Not on file Legal Sex Female 10:52 PM CODE ENFORCEMENT OFFICER Gender Identity Not on file Sexual Orientation Not on file documented as of this encounter Plan of Treatment Not on file documented as of this encounter Visit Diagnoses Not on filedocumented in this encounter Care Teams Inside Account Executive Relationship Specialty Start Date End Date Jessie Shah MD PCP - General Family Medicine 11/13/18 documented as of this encounter
--- OUTSIDE RECORDS SUMMARY | 2024-08-20 20:22 | XMS_ITS | Clinical Summary ---
Author Organization [place] [id number] [facility] Address [facility] [place] [address] Care Team Providers Care Molecular Technologist Name Role Phone Jessie Shah MD Primary Care Pro vider Allergies No known active allergies Medications levonorgestrel (MIRENA) IUD 1 each by intrauterine route once Active alcohol swabs pads, medicated 1 each by Not Applicable route nightly 01/05/20 21 Active lancets miscIndications:Ty pe 2 diabetes mellitus with hyperglycemia, with long-term current use of insulin ([facility]) Check blood sugar fasting and prior to meals. Also check if having signs of hypoglycemia. Check up to 6 times a day. 100 each 3 01/12/20 21 Active blood glucose diagnostic (glucose blood) stripIndications:T ype 2 diabetes mellitus with hyperglycemia, with long-term current use of insulin ([facility]) Check blood sugar fasting and prior to meals. Also check if having signs of hypoglycemia. Check up to 6 times a day. 100 each 3 01/12/20 21 Active BD Hyacinth 2nd Gen Pen Needle 32 gauge x 5/32 needleIndications: Type 2 diabetes mellitus with hyperglycemia, with long-term current use of insulin ([facility]) Use to inject lantus nightly [...] 01/07/2020 Assessment & Plan (04/25/2023 10:54 AM VENTILATION WORKER): Uncontrolled Continue metformin XR twice a day Will decrease lantus to 25 units and start humalog 8 units TIDAC Assessment & Plan (07/19/2022 4:12 PM CDT): Uncontrolled Increase metformin XR to twice a day Will try to restart ozempic, advise to check their website for coupon Continue 40 units lantus nightly Assessment & Plan (03/25/2022 10:34 AM VENTILATION WORKER): Uncontrolled Change metformin to XR and increase to twice a day Start ozempic Continue 40 units lantus nightly Assessment & Plan (01/11/2021 10:39 AM VENTILATION WORKER): Uncontrolled Restart metformin & trulicity Continue lantus, if blood sugar getting too low decrease by a couple units and let me know Assessment & Plan (01/07/2020 1:17 PM VENTILATION WORKER): Last a1c 9.8 Will restart metformin and start trulicity to help with weight loss Continue SSI humalog until blood sugar at goal Recurrent major depressive disorder, in remissio n 01/04/2019 Assessment & Plan (07/19/2022 4:13 PM CDT): Stable Continue prozac Assessment & Plan (03/25/2022 10:34 AM VENTILATION WORKER): Start prozac Assessment & Plan (04/29/2019 10:53 AM CDT): D/c effexor as felt like a zombie States mood improved Denies SI Assessment & Plan (01/04/2019 1:32 PM VENTILATION WORKER): PHQ Screening PHQ-2 Total Score (If total [...] 9.0. Assessment & Plan (04/25/2023 11:03 AM VENTILATION WORKER): Reviewed last hospital note Continue antibiotics Assessment & Plan (01/11/2021 10:38 AM VENTILATION WORKER): S/p hospitalization with I&D and IV antibiotics, reviewed records Continue clindamycin & rifampin Needs doreen drain removed, advised to call surgeon to schedule follow up DARWIN, desires to see one of his partners so placed new referral, but may need to follow up with him for drain removal Assessment & Plan (01/07/2020 1:16 PM VENTILATION WORKER): S/p I&D Following with surgery, who is coordinating home health for twice a day wound dressing changes Assessment & Plan (01/04/2019 1:31 PM VENTILATION WORKER): Missed follow up with dental surgery doctor, encouraged to reschedule Assessment & Plan (11/21/2018 9:57 AM CDT): S/p surgical removal and skin grafting on pannus and axilla Flare up on posterior neck currently I&D performed in office today Bactrim Patient has follow up with dental surgery doctor 1.5 weeks Strict return/ED precautions discussed Assessment & Plan (04/04/2018 10:18 AM VENTILATION WORKER): Plan to remove some justine/sutures in groin wounds Continue dressing changes to bilateral axillae OR 04/03 for b/l groin debridement, mons debridement, and STSG to b/l axillae; wound vac over all Assessment & Plan (04/10/2018 12:12 PM VENTILATION WORKER): Patient initially presented in early February 2018 [...] diet. Assessment & Plan (03/12/2018 7:06 AM VENTILATION WORKER): Patient has active draining sites to bilateral [...] 03/20/2013 Assessment & Plan (01/04/2019 1:31 PM VENTILATION WORKER): Encouraged to wear CPAP all night Assessment [...] kidney. Assessment & Plan (04/25/2023 10:56 AM VENTILATION WORKER): Controlled Continue lisinopril/hctz Assessment & Plan (07/19/2022 4:13 PM CDT): Uncontrolled Restart lisinopril/hctz Follow up 1-2 weeks for nurse visit for recheck Assessment & Plan (01/11/2021 10:39 AM VENTILATION WORKER): Uncontrolled Restart lisinopril-hydrochlorothiazide Assessment & Plan (01/07/2020 1:19 PM VENTILATION WORKER): BP 138/82 today, above goal (<130/80 with [...] lisinopril Assessment & Plan (01/04/2019 1:43 PM VENTILATION WORKER): BP 150/110, 136/92 on repeat Continue 20mg lisinopril Add 12.5mg hctz Assessment & Plan (11/21/2018 9:57 AM CDT): BP 140/100 today, above goal Restart 20mg lisinopril Given DASH diet handout PCOS (polycystic ovarian syndrome) Abdominal wall abscess Resolved Problems Problem Noted Date Diagnosed Date Resolved Date Acute cystitis without hematuria 03/24/2018 11/21/2018 Leukocytosis 03/07/2018 03/10/2018 Assessment & Plan (03/08/2018 6:39 AM VENTILATION WORKER): -UA neg -LE duplex negative -on room air -no central line WBC 14 >> 11 afebrile Acute pain 02/26/2018 11/21/2018 Assessment & Plan (04/10/2018 12:11 PM VENTILATION WORKER): Continue scheduled gabapentin, acetaminophen, and PRN oxycodone 04/10: Patient discharged with new prescription for acetaminophen, gabapentin 600 mg TID, and oxycodone (#25). Assessment & Plan (03/07/2018 1:41 PM VENTILATION WORKER): Scheduled acetaminophen, PRN oxycodone Scheduled bowel regimen [...] on file Legal Sex Female 10:52 PM VENTILATION WORKER Gender Identity Not on file Sexual [...] was last reviewed 2020. Testing performed by: [facility], [address] [place] [address]., [id number] Blood 05/01/2023 11:5 9 PM CDT 05/02/2023 12:13 AM CDT us Alessandro Wang NP LAB BLOOD ORDERABLES Final Resul t [facility] [address] [facility] Department [place] [address] * HEMOGLOBIN A1C (03/16/2022) SCRIBED Hemoglobin A1c 9.1 % us Historical Provider HEALTH MAINTENANCE Final Result * DIABETES EYE EXAM (05/09/2017) SCRIBED DIABETIC DILATED EYE EXAM Normal us Historical Provider HEALTH MAINTENANCE Final Result from Last 3 Months or Most Recently Relevant to Health Maintenance Insurance [employer] ACCESS CHOICE [facility] CHOICE PLUS [facility] H[facility]/PPO Address: [address] [address] [place] [address] [facility] ACC[facility] Advance Directives For more information, please contact: [phone] * Full Code (Latest Code Status on File) Date Activated Date Inactivated Comments 04/15/2021 11:12 AM 04/21/2021 2:36 PM * Full Code Date Activated Date Inactivated Comments 04/22/2018 4:58 AM 04/27/2018 9:13 PM * Full Code Date Activated Date Inactivated Comments 03/28/2018 2:42 PM 04/10/2018 9:27 PM * Full Code Date Activated Date Inactivated Comments 02/24/2018 6:50 PM 03/12/2018 5:11 PM Care Teams Molecular Technologist Relationship Specialty Start Date End Date Jessie Shah MD PCP - General Family Medicine 11/13/18
[2024-08-20] MEDS: CEPHALEXIN 500 MG CAPSULE PO (20:30)
[2024-08-20] MEDS: SULFAMETHOXAZOLE/TRIMETHOPRIM 800/160 MG DS TABLET 1 TAB PO (20:30)
--- NOTE | 2024-08-20 20:39 | PC.NURSE ---
edp segura at bedside
[2024-08-20] MEDS: HYDROcodone/acetaminophen (*CRX) 5-325 MG TABLET 1 TAB PO (21:20)
[2024-08-20] MEDS: KETOROLAC 30 MG/ML VIAL (*BKC) IV PUSH (21:20)
== END 2024-08-20 21:36 | disposition home or self-care (01) ==
PROVIDERS: Emergency Medicine; Emergency Provider Student in an Organized Health Care Education/Training Program; PCP Family Medicine
DX: N76.4 Abscess of vulva (principal); E11.65 Type 2 diabetes mellitus with hyperglycemia; I10 Essential (primary) hypertension; E28.2 Polycystic ovarian syndrome; Z97.5 Presence of (intrauterine) contraceptive device; Z79.84 Long term (current) use of oral hypoglycemic drugs; Z79.4 Long term (current) use of insulin; Z79.899 Other long term (current) drug therapy; Z79.85 Long-term (current) use of injectable non-insulin antidiabetic drugs
CPT/HCPCS: 36415; 56405; 71046; 80053; 83690; 84484; 85025; 85610; 85730; 87070; 93005; 96361; 96374; 96375; 99284; A9270; J1171; J1885; J2003; J7040

== ENCOUNTER 2025-02-10 19:15 | Emergency (ER) | payer OTHER, SELFPAY ==
[2025-02-10 19:37] VITALS: BP 170/121; PULSE 122; RESP 17; TEMP 36.8; O2SAT 98
--- OUTSIDE RECORDS SUMMARY | 2025-02-10 22:12 | XMS_ITS | Encounter Summary ---
Author Organization [facility] Address [address] [place] [address] Care Team Providers Care Metalizer Name Role Phone Miguel A Kan MD Primary Care Provider [phone] Encounter Details Date Type Department Care Team (Late st Contact Info) Description 11/13/2002 Outpatient Historical [facility] Internal Medicine Medical [facility] [address] [address] Erick Drake MD NO ADDRESS ON FILE Social History Tobacco Use Types Packs/Day Years Used Date Smoking Tobacco: Never Assessed Comments Unknown Sex and Gender Information Value Date Recorded Sex Assigned at Not on file Legal Sex Female 4:18 AM LITERATURE PROFESSOR Gender Identity Not on file Sexual Orientation Not on file documented as of this encounter Plan of Treatment Not on file documented as of this encounter Visit Diagnoses Not on filedocumented in this encounter Care Teams Metalizer Relationship Specialty Start Date End Date Miguel A Kan MD [address] [facility] [address] [place] [address] PCP - General Internal Medicine 04/26/11 05/02/16 documented as of this encounter
--- OUTSIDE RECORDS SUMMARY | 2025-02-10 22:12 | XMS_ITS | Clinical Summary ---
Author Organization [place] [id number] [facility] Address [facility] [place] [address] Care Team Providers Care Ibm Mainframe Developer Name Role Phone Jessie Shah MD Primary [...] 01/07/2020 Assessment & Plan (04/25/2023 10:54 AM METAL WIRE TECHNICIAN): Uncontrolled Continue metformin XR twice a day Will decrease lantus to 25 units and start humalog 8 units TIDAC Assessment & Plan (07/19/2022 4:12 PM CDT): Uncontrolled Increase metformin XR to twice a day Will try to restart ozempic, advise to check their website for coupon Continue 40 units lantus nightly Assessment & Plan (03/25/2022 10:34 AM METAL WIRE TECHNICIAN): Uncontrolled Change metformin to XR and increase to twice a day Start ozempic Continue 40 units lantus nightly Assessment & Plan (01/11/2021 10:39 AM METAL WIRE TECHNICIAN): Uncontrolled Restart metformin & trulicity Continue lantus, if blood sugar getting too low decrease by a couple units and let me know Assessment & Plan (01/07/2020 1:17 PM METAL WIRE TECHNICIAN): Last a1c 9.8 Will restart metformin and start trulicity to help with weight loss Continue SSI humalog until blood sugar at goal Recurrent major depressive disorder, in remissio n 01/04/2019 Assessment & Plan (07/19/2022 4:13 PM CDT): Stable Continue prozac Assessment & Plan (03/25/2022 10:34 AM METAL WIRE TECHNICIAN): Start prozac Assessment & Plan (04/29/2019 10:53 AM CDT): D/c effexor as felt like a zombie States mood improved Denies SI Assessment & Plan (01/04/2019 1:32 PM METAL WIRE TECHNICIAN): PHQ Screening PHQ-2 Total Score (If total [...] 9.0. Assessment & Plan (04/25/2023 11:03 AM METAL WIRE TECHNICIAN): Reviewed last hospital note Continue antibiotics Assessment & Plan (01/11/2021 10:38 AM METAL WIRE TECHNICIAN): S/p hospitalization with I&D and IV antibiotics, reviewed records Continue clindamycin & rifampin Needs doreen drain removed, advised to call surgeon to schedule follow up DARWIN, desires to see one of his partners so placed new referral, but may need to follow up with him for drain removal Assessment & Plan (01/07/2020 1:16 PM METAL WIRE TECHNICIAN): S/p I&D Following with surgery, who is coordinating home health for twice a day wound dressing changes Assessment & Plan (01/04/2019 1:31 PM METAL WIRE TECHNICIAN): Missed follow up with dry ice maker, encouraged to reschedule Assessment & Plan (11/21/2018 9:57 AM CDT): S/p surgical removal and skin grafting on pannus and axilla Flare up on posterior neck currently I&D performed in office today Bactrim Patient has follow up with dry ice maker 1.5 weeks Strict return/ED precautions discussed Assessment & Plan (04/04/2018 10:18 AM METAL WIRE TECHNICIAN): Plan to remove some justine/sutures in groin wounds Continue dressing changes to bilateral axillae OR 04/03 for b/l groin debridement, mons debridement, and STSG to b/l axillae; wound vac over all Assessment & Plan (04/10/2018 12:12 PM METAL WIRE TECHNICIAN): Patient initially presented in early February 2018 [...] diet. Assessment & Plan (03/12/2018 7:06 AM METAL WIRE TECHNICIAN): Patient has active draining sites to bilateral [...] 03/20/2013 Assessment & Plan (01/04/2019 1:31 PM METAL WIRE TECHNICIAN): Encouraged to wear CPAP all night Assessment [...] kidney. Assessment & Plan (04/25/2023 10:56 AM METAL WIRE TECHNICIAN): Controlled Continue lisinopril/hctz Assessment & Plan (07/19/2022 4:13 PM CDT): Uncontrolled Restart lisinopril/hctz Follow up 1-2 weeks for nurse visit for recheck Assessment & Plan (01/11/2021 10:39 AM METAL WIRE TECHNICIAN): Uncontrolled Restart lisinopril-hydrochlorothiazide Assessment & Plan (01/07/2020 1:19 PM METAL WIRE TECHNICIAN): BP 138/82 today, above goal (<130/80 with [...] lisinopril Assessment & Plan (01/04/2019 1:43 PM METAL WIRE TECHNICIAN): BP 150/110, 136/92 on repeat Continue 20mg lisinopril Add 12.5mg hctz Assessment & Plan (11/21/2018 9:57 AM CDT): BP 140/100 today, above goal Restart 20mg lisinopril Given DASH diet handout PCOS (polycystic ovarian syndrome) Abdominal wall abscess Resolved Problems Problem Noted Date Diagnosed Date Resolved Date Acute cystitis without hematuria 03/24/2018 11/21/2018 Leukocytosis 03/07/2018 03/10/2018 Assessment & Plan (03/08/2018 6:39 AM METAL WIRE TECHNICIAN): -UA neg -LE duplex negative -on room air -no central line WBC 14 >> 11 afebrile Acute pain 02/26/2018 11/21/2018 Assessment & Plan (04/10/2018 12:11 PM METAL WIRE TECHNICIAN): Continue scheduled gabapentin, acetaminophen, and PRN oxycodone 04/10: Patient discharged with new prescription for acetaminophen, gabapentin 600 mg TID, and oxycodone (#25). Assessment & Plan (03/07/2018 1:41 PM METAL WIRE TECHNICIAN): Scheduled acetaminophen, PRN oxycodone Scheduled bowel regimen [...] on file Legal Sex Female 10:52 PM METAL WIRE TECHNICIAN Gender Identity Not on file Sexual [...] <65 (1 of 2 - PCV) 06/01/2003 HPV Vaccines (1 - 3-dose SCD M series) 06/01/2011 Dilated Eye Exam 05/09/2018 05/09/2017 Hemoglobin A1C 09/13/2022 03/16/2022, 03/24, 01/03/2021, Additional history exists Lipid Panel 03/17/2023 03/17/2022, 01/03/2021 Depression Screening 07/20/2023 07/19/2022, 01/11/2021, 01/11/2021, Additional history exists eGFR 04/30/2024 05/01/2023, 03/24, 03/25/2022, Additional history exists Covid-19 Vaccine (3 - 2024-2 6 season) 2024 04/03/2020, 03/05/2020 Influenza Vaccine (#1) 2024 , 01/04/2021, 01/07/2020, Additional history exists DTaP/Tdap/Td Vaccine (2 - Td or Tdap) 01/04/2029 01/04/2019 Procedures Procedure Name Priority Date/Time Associated Diagnosis [...] was last reviewed 2020. Testing performed by: [facility], [address] [place] [address]., [address] Blood 05/01/2023 11:5 9 PM CDT 05/02/2023 12:13 AM CDT us Alessandro Wang NP LAB BLOOD ORDERABLES Final Resul t [facility] [address] [facility] [place] [address] * HEMOGLOBIN A1C (03/16/2022) SCRIBED Hemoglobin A1c 9.1 % us Historical Provider HEALTH MAINTENANCE Final Result * DIABETES EYE EXAM (05/09/2017) SCRIBED DIABETIC DILATED EYE EXAM Normal us Historical Provider HEALTH MAINTENANCE Final Result from Last 3 Months or Most Recently Relevant to Health Maintenance Insurance [employer] ACCESS CHOICE [facility] CHOICE PLUS [facility] HMO/PPO Address: [address] [address] [place] [address] [email or web address] ACCESS CHOICE [employer]M ACCESS CHOICE Advance Directives For more information, please contact: [phone] * Full Code (Latest Code Status on File) Date Activated Date Inactivated Comments 04/15/2021 11:12 AM 04/21/2021 2:36 PM * Full Code Date Activated Date Inactivated Comments 04/22/2018 4:58 AM 04/27/2018 9:13 PM * Full Code Date Activated Date Inactivated Comments 03/28/2018 2:42 PM 04/10/2018 9:27 PM * Full Code Date Activated Date Inactivated Comments 02/24/2018 6:50 PM 03/12/2018 5:11 PM Care Teams Ibm Mainframe Developer Relationship Specialty Start Date End Date Jessie Shah MD PCP - General Family Medicine 11/13/18
--- OUTSIDE RECORDS SUMMARY | 2025-02-10 22:12 | XMS_ITS | Encounter Summary ---
Author Organization [facility] Address [address] [place] [address] Care Team Providers Care Jack Frame Tender Name Role Phone Miguel A Kan MD Primary Care Provider [phone] Encounter Details Date Type Department Care Team (Late st Contact Info) Description 04/14/2003 Outpatient Historical [facility] Medicine [facility] [address] [facility] [address] [place] [address] Martir Goodson Social History Tobacco Use Types Packs/Day Years Used Date Smoking Tobacco: Never Assessed Comments Unknown Sex and Gender Information Value Date Recorded Sex Assigned at Not on file Legal Sex Female 4:18 AM GRAIN AND YEAST PLANTS SUPERVISOR Gender Identity Not on file Sexual Orientation Not on file documented as of this encounter Plan of Treatment Not on file documented as of this encounter Visit Diagnoses Not on filedocumented in this encounter Care Teams Jack Frame Tender Relationship Specialty Start Date End Date Miguel A Kan MD [address] [facility] [address] [place] [address] PCP - General Internal Medicine 04/26/11 05/02/16 documented as of this encounter
--- OUTSIDE RECORDS SUMMARY | 2025-02-10 22:12 | XMS_ITS | Encounter Summary ---
Author Organization [facility] Address [address] [place] [address] Care Team Providers Care Machine Stuffer Automatic Name Role Phone Miguel A Kan MD Primary Care Provider [phone] Encounter Details Date Type Department Care Team (Late st Contact Info) Description 01/10/2003 Outpatient Historical [facility] Family Medicine [facility] [address] [facility] [address] [place] [address] [place] [address] [facility] [place] [address] Social History Tobacco Use Types Packs/Day Years Used Date Smoking Tobacco: Never Assessed Comments Unknown Sex and Gender Information Value Date Recorded Sex Assigned at Not on file Legal Sex Female 4:18 AM AGILITY INSTRUCTOR Gender Identity Not on file Sexual Orientation Not on file documented as of this encounter Plan of Treatment Not on file documented as of this encounter Visit Diagnoses Not on filedocumented in this encounter Care Teams Machine Stuffer Automatic Relationship Specialty Start Date End Date Miguel A Kan MD [address] [facility] [address] [place] [address] PCP - General Internal Medicine 04/26/11 05/02/16 documented as of this encounter
--- OUTSIDE RECORDS SUMMARY | 2025-02-10 22:12 | XMS_ITS | Encounter Summary ---
Author Organization [facility] Address [address] [place] [address] Care Team Providers Care Safety Counselor Name Role Phone Miguel A Kan MD Primary Care Provider [phone] Encounter Details Date Type Department Care Team (Late st Contact Info) Description 10/30/2002 Outpatient Historical [facility] Internal Medicine Medical [facility] [address] [address] Erick Drake MD NO ADDRESS ON FILE Social History Tobacco Use Types Packs/Day Years Used Date Smoking Tobacco: Never Assessed Comments Unknown Sex and Gender Information Value Date Recorded Sex Assigned at Not on file Legal Sex Female 4:18 AM SERVICE ENGINE REPAIRER Gender Identity Not on file Sexual Orientation Not on file documented as of this encounter Plan of Treatment Not on file documented as of this encounter Visit Diagnoses Not on filedocumented in this encounter Care Teams Safety Counselor Relationship Specialty Start Date End Date Miguel A Kan MD [address] [facility] [address] [place] [address] PCP - General Internal Medicine 04/26/11 05/02/16 documented as of this encounter
--- OUTSIDE RECORDS SUMMARY | 2025-02-10 22:12 | XMS_ITS | Clinical Summary ---
Author Organization [facility] Address [address] [place] [address] Phone Care Team Providers Care Crusher Tender Name Role Phone Unavailable Primary Care Provider [...] different from the original. Dr. Espinoza - FABRICATION MIG WELDER Problem Noted Date Diagnosed Date Generalized anxiety [...] on file Legal Sex Female 4:18 AM UNIT SECRETARY Gender Identity Not on file Sexual Orientation Not on file Occupation Industry Job Start Date Job End Date Not on file Not on file Not on file Not on file Last Filed Vital Signs Vital Sign Reading Time Taken Comments Blood Pressure 154/92 04/01/2016 1:24 PM UNIT SECRETARY Pulse 104 04/01/2016 1:24 PM UNIT SECRETARY Temperature 37.7 C (99.8 F) 04/01/2016 1:24 PM UNIT SECRETARY Respiratory Rate 18 06/15/2014 12:30 AM CDT Oxygen Saturation 97% 04/01/2016 1:24 PM UNIT SECRETARY Inhaled Oxygen Concentration - - Weight 153.3 kg (338 lb) 04/01/2016 1:24 PM UNIT SECRETARY Height 165.1 cm (5' 5) 04/01/2016 1:24 PM UNIT SECRETARY Body Mass Index 56.25 04/01/2016 1:24 PM UNIT SECRETARY Plan of Treatment Health Maintenance Due Date Last Done Comments DTAP/TDAP/TD VACCINES (1 - Tdap) 06/01/2003 HEPATITIS B VACCINES (1 of 3 - 19+ 3-dose series) 06/01/2003 Pre-Diabetes and Diabetes Screening 04/29/201404/29 PAP SMEAR 2014 05/09/2011, 03/28/2010 CERVICAL CANCER SCREENING 05/08/2016 HPV/Cotest (21-29) 05/08/2016 05/09/2011 HPV/Cotest (30-65) 05/08/2016 05/09/2011 BREAST CANCER SCREENING 2024 INFLUENZA VACCINE (#1) 2024 HPV VACCINES (No Doses Required) Completed Procedures Procedure Name Priority Date/Time Associated Diagnosis Comments CERV/VAG CYTOPATH, THIN PREP IMAGR RFLX HPV Routine 05/09/2011 9:00 PM CDT Screening for malignant neoplasm of the cervix HEMOGLOBIN A1C Routine 04/30/2011 8:19 AM UNIT SECRETARY from Last 3 Months or Most Recently Relevant to Health Maintenance Results * CERV/VAG CYTOPATH, THIN PREP IMAGR RFLX HPV (05/09/2011 9:00 PM CDT) LAST MENSTRUAL PERIOD 04/01/2011 [facility] CYTOLOGY INFECTION Shift in vaginal yris suggestive of bacterial vaginosis. [facility] Strapper Operator Pap Comment This Pap test has been evaluated with computer assisted technology. Based on the cytology result, reflex High Risk HPV DNA testing was not performed. [facility] PAP INTERP Negative for intraepithelial lesion or malignancy. [facility] ADEQUACY: Satisfactory for evaluation. Endocervical/trans formation zone component absent. [facility] CLINICAL INFORMATION PT IS HI RISK [facility] SOURCE Cervix, Endocervix [facility] PREV PAP: Information not provided [facility] CYTOTECHNOLOGI ST: MVB, CT(ASCP) [facility] CYTOTECHNOLOGI ST: LMT, CT(ASCP) [facility] Comment: Lab test performed by: [facility] [address] [place] [address] CHRIS BUSTOS DO PREV BX: NO [facility] Endocervical 05/09/2011 9:00 PM CDT 05/09/2011 9:17 PM CDT Comment:ENDOCERVICAL Narrative [facility] - 05/11/2011 6:18 AM CDT Fax results to [phone] us Marsha Fink NP PATHOLOGY/CYTOLOGY ORDERABLES F inal Result Performing Organization Address [facility] de Phone Number [facility] CLIA# [id number] [address] [place] [address] * HEMOGLOBIN A1C (04/30/2011 8:19 AM UNIT SECRETARY) HEMOGLOBIN A1C 5.2 <5.7 % of total Hgb [facility] Comment: Decreased risk of diabetes <5.7 Decreased risk of diabetes 5.7-6.0 Increased risk of diabetes 6.1-6.4 Higher risk of diabetes > or = 6.5 Consistent with diabetes Standards of Medical Care in Diabetes-2010. Diabetes Care, 33(Supp 1): S1-S61,2010. Test Performed at: [facility] [address] [place] [address] CHRIS BUSTOS DO,MPH 04/30/2011 8:19 AM UNIT SECRETARY Miguel A Kan MD CHEMISTRY ORDERABLES Final Resul t Performing Organization Address City/[facility] Co de Phone Number INTERFACE SYSTEM Refer to clinic/hospital department [facility] [address] [place] [address] from Last 3 Months or Most Recently Relevant to Health Maintenance Insurance [facility] OPTIONS PPO [phone] Advance Directives For more information, please contact: [phone] * Full Code (Latest Code Status on File) Date Activated Date Inactivated Comments 03/12/2013 6:33 PM 03/15/2013 12:32 PM
--- OUTSIDE RECORDS SUMMARY | 2025-02-10 22:12 | XMS_ITS ---
Author Organization [facility] Care Team Providers Care Airline Stewardess Name Role Phone Habib, Steven Unavailable Unavailable Ampadu, Lobo Unavailable Unavailable Ampadu, Deann Unavailable Unavailable Allergies and adverse reactions No Known Allergies Care Team Name Role Address Phone Organization Dates Lobo Ampadu PCP [address] [place], [place], [facility], [facility] (Office): : [facility] 01/02/2020 - 01/05/2020 Steven Habib [address] [place], [place], [facility], [place] (Office): [facility] [place] 01/02/2020 - 01/05/2020 Deann Ampadu [address], [place], [facility], [facility] (Office): : [facility] 01/02/2020 - 01/05/2020 Mental Status Section Date Assessment Total Score Description 01/04/2020 CAM 0 No delirium ind icated 01/04/2020 BIMS 15 cognitively int act CAM 0 No delirium ind icated PHQ-9 06 mild depression Insurance Providers Coverage Status Coverage Type Relationship to Subscriber Member Identifier Subscriber Identifier Group Identifier Payer Identifier and Other information 2019 Code: 51 Code System OID:[id number] .[id number]. 5 Code System Name: Source of Payment Typology (PHDSC) Display: Managed Care (Private) Translation: Code: Code System: OID:[id number] .[id number]. 1336 Code System Name: Insurance Type Code ([id number]) Display Name: Health Maintenance Organization (HMO) Plan Code: SELF Code System Name: HL7 RoleCode Code System OID:[id number] .[id number] Display Name: Self [id number] Root: [id number] Payer Name: [employer]vantage Address: [place] [address] City: [place] State: [place] Country: [facility] Telecom: [phone] Problems Problem # Description Date of onset Resolved Date Code CodeSystem Concern Status 1 DIFFICULTY IN WALKING, NOT ELSEWHERE CLASSIFIED 01/03/[address] active 2 NEED FOR ASSISTANCE WITH PERSONAL CARE 01/03/[address] active 3 OTHER ABNORMALITIES OF GAIT AND MOBILITY 01/03/[address] active 4 WEAKNESS 01/03/[address] active 5 ANXIETY DISORDER, UNSPECIFIED 01/01/[address] active 6 COVID-19 01/01/[address] active 7 ENCOUNTER FOR SURGICAL AFTERCARE FOLLOWING SURGERY ON THE SKIN AND SUBCUTANEOUS TISSUE 01/01/[address] active 8 ESSENTIAL (PRIMARY) HYPERTENSION 01/01/[address] active 9 HIDRADENITIS SUPPURATIVA 01/01/[address] active 10 MORBID (SEVERE) OBESITY DUE TO EXCESS CALORIES 01/01/[address] active 11 OBSTRUCTIVE SLEEP APNEA (ADULT) (PEDIATRIC) 01/01/[address] active 12 OTHER SPECIFIED DEPRESSIVE EPISODES 01/01/[address] active 13 POLYCYSTIC OVARIAN SYNDROME 01/01/[address] active Reason for Referral No Reasons for Referral Entered Social History Social History Observation Description Start Date End Date Code Code System Current Smoking Status Tobacco smoking consumption unknown 442816776 SNOMED CT Sex Assigned At Female 1985 25306-4 LOINC Gender Identity Sexual Orientation Vital Signs Code Code System Vitals Name Values and Units Timing Information 2339-0 LOINC Blood Sugar Iaazp=927.0 Units=mg/dL 01/06/2020 89016-3 LOINC Pain Level Value=0.0 01/04/2020 35913-0 [facility] O2 % BldC Oximetry Value=97.0 Units= % 01/03/2020 9279-1 [facility] Respiratory Rate Value=18.0 Units=/m in 01/03/2020 8867-4 [facility] Heart rate Qapio=050.0 Units=/min 01/03/2020 8310-5 [facility] Body Temperature Value=97.5 Units= F 01/03/2020 8462-4 [facility] Blood Pressure-Diastolic Value=95 Un its=mmHg 01/03/2020 8480-6 [facility] Blood Pressure-Systolic Ubgbz=749 Un its=mmHg 01/03/2020 36730-7 [facility] Weight Rurrz=463.0 Units=Lbs 01/2020 8302-2 [facility] Height Value=63.0 Units=Inches 01/02/2020
--- OUTSIDE RECORDS SUMMARY | 2025-02-10 22:12 | XMS_ITS | Encounter Summary ---
Author Organization [facility] Address [address] [place] [address] Care Team Providers Care Territory Account Executive Name Role Phone Jessie Shah MD Primary Care Provider [phone] Encounter Details Date Type Department Care Team (Late st Contact Info) Description 02/03/2025 Results Follow-Up [facility] Care [address] [facility] [place] [address] Damon Lopez, SUPERVISOR [employer] [address] [place], [place] [id number] CULTURE, BACTERIA, BLOOD, CULTURE, BACTERIA, BLOOD Social History Tobacco Use Types Packs/Day Years [...] from your doctor or pharmacy? Never 05/30/2023 [facility] Utilities Answer Date Recorded In the past 12 months has e electric, gas, oil, or water company threatened to shut off services in your home? No 10/23/2024 Humiliation, Afraid, Rape, and Kick questionnair e Answer Date Recorded Within the last year, have y ou been afraid of your partner or ex-partner? No 10/23/2024 Within the last year, have y ou been humiliated or emotionally abused in other ways by your partner or ex-partner? No Within the last year, have y ou been kicked, hit, slapped, or otherwise physically hurt by your partner or ex-partner? No 10/23/2024 Within the last year, have y ou been raped or forced to have any kind of sexual activity by your partner or ex-partner? No 10/23/2024 Social Connection and Isolation Panel Answer Date Recorded In a typical week, how many times do you talk on the phone with family, friends, or neighbors? More than three times a week 05/30/2023 How often do you get togethe r with friends or relatives? More than three times a week 05/30/2023 Attends [employer] Services Not on file 05/29 Active Member [...] medical care, and heating? Not very hard 10/23/2024 PHQ-2 Answer Date Recorded Patient Health Questionnaire-2 Score 0 03/16/2024 [facility] - Occupational [...] the money to buy more. Never true 10/24/19 Within the past 12 months, t he food you bought just didn't last and you didn't have money to get more. Never true 10/23/2024 PRAPARE - Transportation Answer Date Re corded In the past 12 months, has l ack of transportation kept you from medical appointments or from getting medications? No 04/2024 In the past 12 months, has l ack of transportation kept you from meetings, work, or from getting things needed for daily living? No 10/23/2024 Housing Stability Vital Sign Answer Silver e [...] place to sleep or slept in a snf (including now)? No 04/23/2023 Housing Stability Vital Sign Answer Silver e Recorded In the last 12 months, was t here a time when you were not able to pay the mortgage or rent on time? No 10/23/2024 In the past 12 months, how m any times have you moved where you were living? 0 10/23/2024 At any time in the past 12 m [facility], were you homeless or living in a snf (including now)? No 10/23/2024 Comments No Sex and Gender Information Value Date Recorded Sex Assigned at Female 03/16/2024 2:10 PM HEAD KILN OPERATOR Legal Sex Female 11:37 PM CDT Gender Identity Not on file Sexual Orientation Not on file documented as of this encounter Functional Status * Are you deaf or do you have serious difficulty hearing Answer Date of Assessment Author Status No 10/23/2024 8:21 AM MAURIT Sydni Norton RN Active * Are you blind or do you have serious difficulty seeing, even when wearing glasses? Answer Date of Assessment Author Status No 10/23/2024 8:21 AM MAURIT Sydni Norton RN Active * Do you have serious difficulty walking or climbing stairs? Answer Date of Assessment Author Status No 10/23/2024 8:21 AM Sydni Garnett RN Active * Do you have difficulty dressing or bathing? Answer Date of Assessment Author Status No 10/23/2024 8:21 AM Sydni Garnett RN Active * Because of a physical, mental, or emotional condition, do you have difficulty doing errands alone such as visiting a doctor's office or shopping? Answer Date of Assessment Author Status No 10/23/2024 8:21 AM Sydni Garnett RN Active documented as of this encounter Mental Status * Because of a physical, mental, or emotional condition, do you have serious difficulty concentrating, remembering, or making decisions? Answer Entry Date Author Status No 10/23/2024 8:21 AM Sydni Garnett RN Active documented in this encounter Plan of Treatment Not on file documented as of this encounter Goals Goal Patient Goal Type Associated Problems Recent Progress Patient-Stated? Author Outpatient Goal General No Jassi Hunt RN Note: Understanding of wound care and able to perform independently. Eat nutritious, low calorie meals to promote healing. Health - patient able to perform ADLs independently Lifestyle No Chrissy Ramos, HISTOLOGY TEACHER documented as of this encounter Visit Diagnoses Not on filedocumented in this encounter Care Teams Territory Account Executive Relationship Specialty Start Date End Date Jessie Shah MD [address] [place] [address] PCP - General FAMILY PRACTICE 10/27/19 documented as of this encounter
--- OUTSIDE RECORDS SUMMARY | 2025-02-10 22:12 | XMS_ITS | Encounter Summary ---
Author Organization [facility] Healthcare Address [address] [place] [address] Care Team Providers Care Hardboard Coating Machine Operator Name Role Phone Jessie Shah MD Primary Care Pro vider Encounter Details Date Type Department Care Team (Late st Contact Info) Description 09/22/2018 Documentation [facility] Surgeon [address] [place] [address] Kedar Forman Jr., MD [address] [place] [address] Social History Tobacco Use Types Packs/Day Years [...] on file Legal Sex Female 10:52 PM CANDLE MAKING SUPERVISOR Gender Identity Not on file Sexual Orientation Not on file documented as of this encounter Plan of Treatment Not on file documented as of this encounter Visit Diagnoses Not on filedocumented in this encounter Care Teams Hardboard Coating Machine Operator Relationship Specialty Start Date End Date Jessie Shah MD PCP - General Family Medicine 11/13/18 documented as of this encounter
--- OUTSIDE RECORDS SUMMARY | 2025-02-10 22:12 | XMS_ITS | Encounter Summary ---
Author Organization [facility] Address [address] [place] [address] Care Team Providers Care Athletic Events Scorer Name Role Phone Jessie Shah MD Primary Care Provider [phone] Encounter Details Date Type Department Care Team (Late st Contact Info) Description 12/04/2019 Prep for Procedure [facility] Pre-Admission Testing [facility] [place], [place] [id number] Janes Prince MD [address] [place] [address] Social History Tobacco Use Types Packs/Day Years Used Date Smoking Tobacco: Never Smokeless Tobacco: Never Alcohol Use Standard Drinks/Week Comments Yes 0 (1 standard drink = 0.6 oz pur e alcohol) occasional 2-3 per month Comments No Sex and Gender Information Value Date Recorded Sex Assigned at Female 03/16/2024 2:10 PM OVER THE HORIZON TARGETING SUPERVISOR Legal Sex Female 11:37 PM CDT Gender [...] DETECTED(A) NOT DETECTED 12/10/2019 11:21 PM CDT [facility] Comment: A Detected result is considered a [...] providers and patients using the following websites: https://www.GeekStatus.CubeSensors/home/Covid-19/HCP/NAAT/fact-sheet2 https://www.Kuotus/home/Covid-19/Patients/NAAT/ fact-sheet2 This test has been authorized by the FDA under an Emergency Use Authorization (EUA) for use by authorized laboratories. Due to the current public health emergency, [employer] [facility] is receiving a high volume of samples [...] about COVID-19 can be found at the [employer] website: www.Mixwit.CubeSensors/Covid19. Test performed at [facility] [address] [address] Director: CHRIS BUSTOS DO,MPH FIRST TEST NO 12/09/2019 3:[address] [facility] EMPLOYED IN HEALTHCARE YES 12/09/2019 3:[address] [facility] SYMPTOMATIC DEFINED BY CDC NO 12/09/2019 3:[address] [facility] DATE OF SYMPTOM ONSET UNKNOWN 12/09/2019 3:[address] [facility] HOSPITALIZATION STATUS NO 12/09/2019 3:[address] [facility] PATIENT IN ICU NO 12/09/2019 3:[address] [facility] RESIDENT OF CONGREGATE CARE UNKNOWN 12/09/2019 3:[address] [facility] NOT 12/09/2019 3:[address] [facility] PATIENT'S RACE WHITE OR 12/09/2019 3:[address] [facility] ETHNICITY NONHISPANIC 12/09/2019 3:[address] [facility] SOURCE (QST) NASOPHARYNGEAL SWAB 12/09/2019 3:[address] [facility] NASOPHARYNGEAL SWAB / Unknown 12/09/2019 2:32 PM CDT us Janes Prince MD MICROBIOLOGY - GENERAL ORDERAB LES Final Result [facility] [address] [place] [address], [facility] [id number] [place] [address], documented in this encounter Visit Diagnoses Diagnosis Preop examination- Primary Preoperative examination, unspecified documented in this encounter Additional Health Concerns Infection Onset Date Last Indicated Resolved Time COVID-19 Rule Out 12/09/2019 12/09/2019 12/10/2019 11:21 PM CDT COVID-19 Confirmed Comment:Resolving symptom free for 10 days and approval to move forward with surgery. 12/09/2019 12/09/2019 12/24/2019 1:26 PM OVER THE HORIZON TARGETING SUPERVISOR COVID-19 Rule Out 12/31/2019 12/31/2019 01/01/2020 8:04 AM OVER THE HORIZON TARGETING SUPERVISOR COVID-19 Confirmed 12/31/2019 12/31/2019 1 12:34 AM OVER THE HORIZON TARGETING SUPERVISOR documented as of this encounter Care Teams Athletic Events Scorer Relationship Specialty Start Date End Date Jessie Shah MD [address] [id number] PCP - General FAMILY PRACTICE 10/27/19 documented as of this encounter
--- OUTSIDE RECORDS SUMMARY | 2025-02-10 22:12 | XMS_ITS | Encounter Summary ---
Author Organization [facility] Healthcare Address [address] [place] [address] Care Team Providers Care Scheduler Name Role Phone Jessie Shah MD Primary Care Pro vider Encounter Details Date Type Department Care Team (Late st Contact Info) Description 03/14/2018 Documentation [facility] Surgeon [address] [place] [address] Damon Denis MD PhD [address] [place] [address] Social History Tobacco Use Types Packs/Day Years Used Date Smoking Tobacco: Never Smokeless Tobacco: Never Alcohol Use Standard Drinks/Week Comments Yes 0 (1 standard drink = 0.6 oz pur e alcohol) rare use Comments No Sex and Gender Information Value Date Recorded Sex Assigned at Not on file Legal Sex Female 10:52 PM CLASS 1 OWNER OPERATOR Gender Identity Not on file Sexual Orientation Not on file documented as of this encounter Plan of Treatment Not on file documented as of this encounter Visit Diagnoses Not on filedocumented in this encounter Care Teams Scheduler Relationship Specialty Start Date End Date Jessie Shah MD PCP - General Family Medicine 11/13/18 documented as of this encounter
--- OUTSIDE RECORDS SUMMARY | 2025-02-10 22:13 | XMS_ITS | Encounter Summary ---
Author Organization [facility] Address [address] [place] [address] Care Team Providers Care Party Plan Salesperson Name Role Phone Miguel A Kan MD Primary Care Provider [phone] Encounter Details Date Type Department Care Team (Late st Contact Info) Description 05/12/2004 Outpatient Historical [facility] Internal Medicine Medical [facility] [address] [address] Erick Drake MD NO ADDRESS ON FILE Social History Tobacco Use Types Packs/Day Years Used Date Smoking Tobacco: Never Assessed Comments Unknown Sex and Gender Information Value Date Recorded Sex Assigned at Not on file Legal Sex Female 4:18 AM CHESS INSTRUCTOR Gender Identity Not on file Sexual Orientation Not on file documented as of this encounter Plan of Treatment Not on file documented as of this encounter Visit Diagnoses Not on filedocumented in this encounter Care Teams Party Plan Salesperson Relationship Specialty Start Date End Date Miguel A Kan MD [address] [facility] [address] [place] [address] PCP - General Internal Medicine 04/26/11 05/02/16 documented as of this encounter
--- OUTSIDE RECORDS SUMMARY | 2025-02-10 22:13 | XMS_ITS | Encounter Summary ---
Author Organization [facility] Address [address] [place] [address] Care Team Providers Care Painter And Grader Cork Name Role Phone Miguel A Kan MD Primary Care Provider [phone] Encounter Details Date Type Department Care Team (Late st Contact Info) Description 09/04/2003 Outpatient Historical [facility] Family Medicine [facility] [address] [facility] [address] [place] [address] [place] [address] [place] [address] Social History Tobacco Use Types Packs/Day Years Used Date Smoking Tobacco: Never Assessed Comments Unknown Sex and Gender Information Value Date Recorded Sex Assigned at Not on file Legal Sex Female 4:18 AM WET END SUPERVISOR Gender Identity Not on file Sexual Orientation Not on file documented as of this encounter Plan of Treatment Not on file documented as of this encounter Visit Diagnoses Not on filedocumented in this encounter Care Teams Painter And Grader Cork Relationship Specialty Start Date End Date Miguel A Kan MD [facility] [address] [facility] [address] [place] [address] PCP - General Internal Medicine 04/26/11 05/02/16 documented as of this encounter
--- OUTSIDE RECORDS SUMMARY | 2025-02-10 22:13 | XMS_ITS | Encounter Summary ---
Author Organization [facility] Address [address] [place] [address] Care Team Providers Care Enrollment Management Director Name Role Phone Miguel A Kan MD Primary Care Provider [phone] Encounter Details Date Type Department Care Team (Latest Contact Info) Description 10/16/2003 Outpatient Historical [facility] Latrice Vilchis, DO [address] [facility] [address] [place] [id number] MENSTRUAL DISORDER NEC (Primary Dx) Social History Tobacco Use Types Packs/Day Years Used Date Smoking Tobacco: Never Assessed Comments Unknown Sex and Gender Information Value Date Recorded Sex Assigned at Not on file Legal Sex Female 4:18 AM FINISHING TECHNICIAN Gender Identity Not on file Sexual Orientation Not on file documented as of this encounter Plan of Treatment Not on file documented as of this encounter Visit Diagnoses Diagnosis Other disorder of menstruation and other abnormal bleeding from female genital tract- Primary documented in this encounter Care Teams Enrollment Management Director Relationship Specialty Start Date End Date Miguel A Kan MD [address] [facility] [address] [place] [address] PCP - General Internal Medicine 04/26/11 05/02/16 documented as of this encounter
--- OUTSIDE RECORDS SUMMARY | 2025-02-10 22:13 | XMS_ITS | Encounter Summary ---
Author Organization [employer] [facility] Address [address] [place] [address] Care Team Providers Care Rn Hospice Name Role Phone Miguel A Kan MD Primary Care Provider [phone] Encounter Details Date Type Department Care Team (Latest Contact Info) Description 04/28/2003 Outpatient Historical [facility], [address] [place] [address] [facility] [address] [place] [address] AFTERCARE SENIOR CARE USE MEDICATN (Primary Dx) Social History Tobacco Use Types Packs/Day Years Used Date Smoking Tobacco: Never Assessed Comments Unknown Sex and Gender Information Value Date Recorded Sex Assigned at Not on file Legal Sex Female 4:18 AM CHEF HEAD Gender Identity Not on file Sexual Orientation Not on file documented as of this encounter Plan of Treatment Not on file documented as of this encounter Visit Diagnoses Diagnosis Encounter for long-term (current) use of other medications- Primary documented in this encounter Care Teams Rn Hospice Relationship Specialty Start Date End Date Miguel A Kan MD [address] [facility] [address] [place] [address] PCP - General Internal Medicine 04/26/11 05/02/16 documented as of this encounter
--- OUTSIDE RECORDS SUMMARY | 2025-02-10 22:13 | XMS_ITS | Encounter Summary ---
Author Organization [facility] Address [address] [place] [address] Care Team Providers Care Mold Finisher Name Role Phone Miguel A Kan MD Primary Care Provider Encounter Details Date Type Department Care Team (Late st Contact Info) Description 06/09/2004 Outpatient Historical [facility] Internal Medicine [facility] [address] [facility] [id number] Erick Drake MD NO ADDRESS ON FILE Social History Tobacco Use Types Packs/Day Years Used Date Smoking Tobacco: Never Assessed Comments Unknown Sex and Gender Information Value Date Recorded Sex Assigned at Not on file Legal Sex Female 4:18 AM ROUGE PRESSER Gender Identity Not on file Sexual Orientation Not on file documented as of this encounter Plan of Treatment Not on file documented as of this encounter Visit Diagnoses Not on filedocumented in this encounter Care Teams Mold Finisher Relationship Specialty Start Date End Date Miguel A Kan MD [address] [facility] [address] [place] [address] PCP - General Internal Medicine 04/26/11 05/02/16 documented as of this encounter
--- OUTSIDE RECORDS SUMMARY | 2025-02-10 22:13 | XMS_ITS | Encounter Summary ---
Author Organization [facility] Address [address] [place] [address] Care Team Providers Care Wooden Frame Builder Name Role Phone Miguel A Kan MD Primary Care Provider [phone] Encounter Details Date Type Department Care Team (Latest Contact Info) Description 12/03/2005 Outpatient Historical [facility] Ballesteros Pilonidal Cyst with Abscess (Primary Dx) Social History Tobacco Use Types Packs/Day Years Used Date Smoking Tobacco: Never Assessed Comments Unknown Sex and Gender Information Value Date Recorded Sex Assigned at Not on file Legal Sex Female 4:18 AM SENIOR MEDICAL DIRECTOR Gender Identity Not on file Sexual [...] other clinical evidence. 12/03/2005 9:49 AM CDT [facility] CHEMISTRY ORDERABLES Final Resul t INTERFACE SYSTEM [...] K/uL INTERFACE SYSTEM 12/03/2005 9:49 AM CDT Jeanne [...] ORDERABLES Final Re sult Performing Organization Address City/[facility] Co de Phone Number INTERFACE SYSTEM Refer to clinic/hospital department documented in this encounter Visit Diagnoses Diagnosis Pilonidal cyst with abscess- Primary documented in this encounter Care Teams Wooden Frame Builder Relationship Specialty Start Date End Date Miguel A Kan MD [address] [place] [id number] PCP - General Internal Medicine 04/26/11 05/02/16 documented as of this encounter
--- OUTSIDE RECORDS SUMMARY | 2025-02-10 22:13 | XMS_ITS | Encounter Summary ---
Author Organization [facility] Address [address] [place] [address] Care Team Providers Care Transition Specialist Name Role Phone Miguel A Kan MD Primary Care Provider [phone] Encounter Details Date Type Department Care Team (Latest Contact Info) Description 03/08/2006 Outpatient Historical [facility], [address] Zachary Phan Pilonidal Cyst with Abscess (Primary Dx) Social History Tobacco Use Types Packs/Day Years Used Date Smoking Tobacco: Never Assessed Comments Unknown Sex and Gender Information Value Date Recorded Sex Assigned at Not on file Legal Sex Female 4:18 AM CHEMISTRY LECTURER Gender Identity Not on file Sexual Orientation Not on file documented as of this encounter Plan of Treatment Not on file documented as of this encounter Visit Diagnoses Diagnosis Pilonidal cyst with abscess- Primary documented in this encounter Care Teams Transition Specialist Relationship Specialty Start Date End Date Miguel A Kan MD [address] [place] [id number] PCP - General Internal Medicine 04/26/11 05/02/16 documented as of this encounter
--- OUTSIDE RECORDS SUMMARY | 2025-02-10 22:13 | XMS_ITS | Clinical Summary ---
Author Organization [facility] Address [address] [place] [address] Care Team Providers [employer] Paraprofessional Name Role Phone Jessie Shah MD Primary Care Provider [phone] Allergies No known active allergies Medications levonorgestrel [...] mg OralEvery evening, Informant: Self, Reported on 10/23/2024 hydroCHLOROthia zide (HYDRODIURIL) 25 MG tablet Take 1 tablet (25 mg total) by mouth daily. 90 tablet 3 Active Additional Information Patient taking differently:25 mg OralEvery evening, Informant: Self, Reported on 10/23/2024 FLUoxetine (PROZAC) 20 MG capsule Take 1 capsule (20 mg total) by mouth daily. 3 Active metFORMIN ER (GLUCOPHAGE-XR) 500 MG 24 hr tablet Take 1 tablet (500 mg total) by mouth 2 (two) times daily before meals. Active acetaminophen (TYLENOL) 500 MG tablet Take 2 tablets (1,000 mg total) by mouth every 8 (eight) hours as needed for Pain. Active HYDROcodone-jamin taminophen (NORCO) 5-325 MG tabletIndicatio ns:Acute Pain < 7 Day Supply Take 1 tablet by mouth every 6 (six) hours as needed for Pain. Indications: Acute Pain < 7 Day Supply 20 tablet 5 Active insulin glargine (LANTUS) 100 UNIT/ML injection (PEN) Inject 10 Units into the skin nightly at bedtime. 5 Active ondansetron (ZOFRAN) 4 MG tablet Take 1 tablet (4 mg total) by mouth every 8 (eight) hours as needed for Nausea. 20 tablet 5 Active sulfamethoxazol e-trimethoprim (BACTRIM DS) 800-160 MG tablet Take 1 tablet by mouth 2 (two) times daily for 10 days. 20 tablet 5 02/12/20 Active Active Problems Problem Noted Date Diagnosed Date Abscess 10/22/2024 Status post incision and drainage 03/18/2024 Skin infection 06/18/2023 Sepsis 04/23/2023 Infection following a proced ure, other surgical site, initial encounter 03/30/2022 Hidradenitis 03/16/2022 Hydradenitis 01/02/2021 Hidradenitis suppurativa 12/29/2019 Encounters Date Type Department Care Team Description 02/03/2025 Results Follow-Up [facility] Care [address] [place] [address] Damon Lopez APRN CULTURE, BACTERIA, BLOOD, CULTURE, BACTERIA, BLOOD 02/01/2025 2:00 PM GLUER MACHINE OPERATOR - 02/01/2025 6:21 PM GLUER MACHINE OPERATOR Emergency [facility] [place] [address] Aleyda Rojas MD Abscess Discharge Disposition: Home or Self Care (Routine Discharge) 02/01/2025 Travel from Last 3 Months Immunizations Immunization [...] from your doctor or pharmacy? Never 05/30/2023 [facility] Utilities Answer Date Recorded In the past 12 months has e [employer] [place], oil, or water [employer] threatened to shut off services in your [...] than three times a week 05/30/2023 Attends [employer] Services Not on file 05/29 Active Member [...] Recorded Patient Health Questionnaire-2 Score 0 03/16/2024 [facility] - Occupational Stress [...] place to sleep or slept in a alf (including now)? No 04/23/2023 Housing Stability Vital Sign Answer Silver e Recorded In the last 12 months, was t here a time when you were not able to pay the mortgage or rent on time? No 10/23/2024 In the past 12 months, how m any times have you moved where you were living? 0 10/23/2024 At any time in the past 12 [facility], were you homeless or living in a alf (including now)? No 10/23/2024 Comments No Sex and Gender Information Value Date Recorded Sex Assigned at Female 03/16/2024 2:10 PM GLUER MACHINE OPERATOR Legal Sex Female 11:37 PM CDT Gender Identity Not on file Sexual Orientation Not on file Last Filed Vital Signs Vital Sign Reading Time Taken Comments Blood Pressure 149/82 02/01/2025 6:00 PM GLUER MACHINE OPERATOR Pulse 90 02/01/2025 6:00 PM GLUER MACHINE OPERATOR Temperature 37.3 C (99.1 F) 02/01/2025 6:02 PM GLUER MACHINE OPERATOR Respiratory Rate 10 02/01/2025 6:00 PM GLUER MACHINE OPERATOR Oxygen Saturation 97% 02/01/2025 6:00 PM GLUER MACHINE OPERATOR Inhaled Oxygen Concentration - - Weight 113.4 kg (250 lb) 02/01/2025 1:32 PM GLUER MACHINE OPERATOR Height 165.1 cm (5' 5) 02/01/2025 1:32 PM GLUER MACHINE OPERATOR Body Mass Index 41.6 02/01/2025 1:32 PM GLUER MACHINE OPERATOR Plan of Treatment Health Maintenance [...] Years) (1 of 2 - PCV) 06/01/2003 HPV Vaccines (1 - 3-dose SCDM series) 06/01/2011 Cervical Cancer Screening Pap with HPV Testing (Age 30 to 64) Every 5 Years 2014 Cervical Cancer Screening with HPV 2014 Lipid Panel 03/17/2023 03/17/2022, 01/03/2021 Mammogram Screening 2024 COVID-19 Vaccine ( season) 2024 04/03/2020, 03/05/2020 Influenza Adult (#1) 2024 04/24/2023, 01/04/2021, 01/07/2020, Additional history exists Hemoglobin A1C 01/22/2025 10/23/2024, 02/21, 05/30/2023, Additional history exists DTaP, Tdap and Td Vaccines (2 - Td or Tdap) 01/04/2029 01/04/2019 Hepatitis A Vaccines Aged Out No long er eligible based [...] perform ADLs independently Lifestyle No Chrissy Ramos, PRESIDENTIAL SUPPORT SPECIALIST Procedures Procedure Name Priority Date/Time Associated Diagnosis Comments POCT GLUCOSE - DOCKED DEVICE Routine 02/01/2025 5:56 PM GLUER MACHINE OPERATOR INCISION AND DRAINAGE Routine 02/01/2025 5:41 PM GLUER MACHINE OPERATOR CT ABD+PEL W CON STAT 02/01/2025 3:41 PM GLUER MACHINE OPERATOR LACTIC ACID W REFLEX (SEPSIS) STAT 02/01/2025 2:25 PM GLUER MACHINE OPERATOR CULTURE, BACTERIA, BLOOD STAT 02/01/2025 2:21 PM GLUER MACHINE OPERATOR CULTURE, BACTERIA, BLOOD STAT 02/01/2025 2:21 PM GLUER MACHINE OPERATOR CHORIONIC GONADOTROPIN HCG QL STAT 02/01/2025 2:21 PM GLUER MACHINE OPERATOR BASIC METABOLIC PANEL STAT 02/01/2025 2:21 PM GLUER MACHINE OPERATOR HC CBC AUTO W/AUTO DIFF STAT 02/01/2025 2:21 PM GLUER MACHINE OPERATOR HC GLYCOSYLATED HGB STAT 10/23/2024 5 :46 AM CDT LIPID PANEL Routine 03/17/2022 7:04 AM GLUER MACHINE OPERATOR from Last 3 Months or Most Recently Relevant to Health Maintenance Results * (ABNORMAL) POCT glucose (02/01/2025 5:56 PM GLUER MACHINE OPERATOR) GLUCOSE POC 271(H) 70 - 99 mg/dL 02/01/2025 5:58 PM GLUER MACHINE OPERATOR [facility] 02/01/2025 5:56 PM GLUER MACHINE OPERATOR us Aleyda Rojas MD POCT ORDERABLES - DEVICE Fin al Result [facility] [address] [place] [address], * Incision/Drainage (02/01/2025 5:41 PM GLUER MACHINE OPERATOR) Narrative Aleyda Rojas MD - 02/01/2025 5:41 PM GLUER MACHINE OPERATOR Aleyda Rojas MD 02/01/2025 5:59 PM Incision/Drainage Date/Time: 02/01/2025 5:41 PM Performed by: Aleyda Rojas MD Authorized by: Aleyda Rojas MD Consent: Consent given by: Patient Risks discussed: Bleeding, incomplete drainage, pain and infection Alternatives discussed: No treatment and alternative treatment [place] protocol: Procedure explained and questions answered to patient or proxy's satisfaction: yes Imaging studies available: yes Patient identity confirmed: Verbally with patient Location: Type: Abscess Size: 1.5 cm Location: Anogenital Anogenital location: Vulva Pre-procedure details: Skin preparation: Povidone-iodine Sedation: Sedation type: None Anesthesia: Anesthesia method: Local infiltration Local anesthetic: Lidocaine 1% WITH epi Procedure type: Complexity: Simple Procedure details: Ultrasound guidance: yes Needle aspiration: no Incision types: Stab incision Incision depth: Dermal Drainage: Serosanguinous Drainage amount: Moderate Wound treatment: Wound left open Packing materials: None Post-procedure details: Procedure completion: Tolerated well, no immediate complications us Aleyda Rojas MD PROCEDURE/MINOR SURGICAL ORD ERABLES Final Result * CT ABD+PEL W IV CON ONLY (02/01/2025 3:41 PM GLUER MACHINE OPERATOR) Anatomical Region Laterality Modality Abdomen Computed Tomogra phy 02/01/2025 4:16 PM GLUER MACHINE OPERATOR Impressions 02/01/2025 4:24 PM GLUER MACHINE OPERATOR IMPRESSION: 1. Skin and subcutaneous changes findings in the groin, pubic region and labia majora consistent with acute inflammation. 2. Small (1.6 cm) right labial fluid collection consistent with abscess. 3. Other chronic or nonurgent findings as described above. Referred By: Interpreted By: Gurjit Young MD, 02/01/2025 4:16 PM Narrative 02/01/2025 4:24 PM GLUER MACHINE OPERATOR [address] [address] EXAMINATION: CT ABD+PEL W CON CLINICAL HISTORY: Pain, groin, history of hidradenitis COMPARISON: 03/16/2024, pelvic CT 10/20/2024 DATE/TIME: 02/01/2025 3:24 PM TECHNIQUE: Multiplanar CT images of the abdomen and pelvis were obtained. IV contrast: uneventful intravenous administration of 100 mL Isovue 370. Oral contrast: None. A dose lowering technique was used for this procedure, which may include, but is not limited to, dose reduction technique, automated exposure control, the use of iterative reconstruction, and ALARA (As Low As Reasonably Achievable) / Image Gently techniques. FINDINGS: Borderline hepatomegaly. Liver otherwise negative. Gallbladder is negative. Bile ducts are negative. Pancreas is negative. Spleen is negative. Adrenal glands are negative. Multiple bilateral renal cysts which do not require follow-up. Additional tiny low-density bilateral renal lesions which are too small to characterize. Kidneys are otherwise negative. Abdominal aorta is caliber with minimal atherosclerotic calcification. IUD is noted, appearing appropriate position. Prominent size of both ovaries, stable. Small left ovarian or paraovarian cyst measuring 1.8 cm. Bladder is unremarkable. No free air or fluid. No bowel obstruction or bowel wall thickening. There is a tiny appendix without evidence of appendicitis. There is significant skin thickening and nodular irregularity along both inguinal fold, similar prior examinations and consistent with inflammation, consistent with given history of hidradenitis suppurativa. Additional skin thickening in the pubic region, left of midline, as well as in the labia majora, new and also likely inflammatory. There is subcutaneous edema within the right labium majus consistent with inflammation, with a small subcutaneous rim enhancing collection measuring 1.6 cm x 1.2 cm x 1.2 cm. This would be consistent with a small abscess/furuncle. No soft tissue gas. No acute osseous abnormality. Procedure Note Gurjit Young MD - 02/01/[address] [address] EXAMINATION: CT ABD+PEL W CON CLINICAL HISTORY: Pain, groin, history of hidradenitis COMPARISON: 03/16/2024, pelvic CT 10/20/2024 DATE/TIME: 02/01/2025 3:24 PM TECHNIQUE: Multiplanar CT images of the abdomen and pelvis were obtained.IV contrast: uneventful intravenous administration of 100 mL Isovue 370.Oral contrast: None. A dose lowering technique was used for this procedure, which may include,but is not limited to, dose reduction technique, automated exposurecontrol, the use of iterative reconstruction, and ALARA (As Low AsReasonably Achievable) / Image Gently techniques. FINDINGS: Borderline hepatomegaly. Liver otherwise negative. Gallbladderis negative. Bile ducts are negative. Pancreas is negative. Spleen isnegative. Adrenal glands are negative. Multiple bilateral renal cystswhich do not require follow-up. Additional tiny low-density bilateralrenal lesions which are too small to characterize. Kidneys are otherwisenegative. Abdominal aorta is caliber with minimal atheroscleroticcalcification. IUD is noted, appearing appropriate position. Prominentsize of both ovaries, stable. Small left ovarian or paraovarian cystmeasuring 1.8 cm. Bladder is unremarkable. No free air or fluid. No bowel obstruction or bowel wall thickening. Thereis a tiny appendix without evidence of appendicitis. There is significant skin thickening and nodular irregularity along bothinguinal fold, similar prior examinations and consistent withinflammation, consistent with given history of hidradenitis suppurativa.Additional skin thickening in the pubic region, left of midline, as wellas in the labia majora, new and also likely inflammatory. There issubcutaneous edema within the right labium majus consistent withinflammation, with a small subcutaneous rim enhancing collection measuring1.6 cm x 1.2 cm x 1.2 cm. This would be consistent with a smallabscess/furuncle. No soft tissue gas. No acute osseous abnormality. IMPRESSION: 1. Skin and subcutaneous changes findings in the groin, pubic region andlabia majora consistent with acute inflammation. 2. Small (1.6 cm) right labial fluid collection consistent with abscess. 3. Other chronic or nonurgent findings as described above. Referred By: Interpreted By: Gurjit Young MD, 02/01/2025 4:[address] Rojas MD CT Final Result * LACTIC ACID W REFLEX (SEPSIS) (02/01/2025 2:25 PM GLUER MACHINE OPERATOR) [facility] LACTIC ACID VENOUS 1.6 0.4 - 2.0 MMOL/L 02/01/2025 3:08 PM GLUER MACHINE OPERATOR [facility] BLOOD VENOUS BLOOD SPECIMEN / Unknown 02/01/2025 2:25 PM GLUER MACHINE OPERATOR Aleyda Rojas MD LABORATORY Final Result [facility] [address] [place] [address], [place] [phone] * CULTURE, BACTERIA, BLOOD (02/01/2025 2:21 PM GLUER MACHINE OPERATOR) Only the most recent of2 resultswithin the time period is included. [facility] SPEC DESCRIPTION BLOOD-VENOU S 02/01/2025 2:10 PM GLUER MACHINE OPERATOR [facility] SPECIAL REQUESTS NO SPECIAL REQUEST 02/01/2025 2:10 PM GLUER MACHINE OPERATOR [facility] CULTURE RESULT NO GROWTH 5 DAYS 02/06/2025 2:59 PM GLUER MACHINE OPERATOR [facility] BLOOD VENOUS BLOOD SPECIMEN / Unknown 02/01/2025 2:21 PM GLUER MACHINE OPERATOR 02/01/2025 2:38 PM GLUER MACHINE OPERATOR Aleyda Rojas MD MICROBIOLOGY - GENERAL ORDER TANISHA Final Result [facility] [address] [place] [address], [place] [phone] * Qualitative HCG (02/01/2025 2:21 PM GLUER MACHINE OPERATOR) Pathologist [facility] PREG SCREEN-SERUM NEGATIVE 02/01/2025 3:00 PM GLUER MACHINE OPERATOR [facility] BLOOD VENOUS BLOOD SPECIMEN / Unknown 02/01/2025 2:21 PM GLUER MACHINE OPERATOR us Aleyda Rojas MD LABORATORY Final Result [facility] [address] [place] [address], [place] [phone] * (ABNORMAL) CBC W/DIFF AUTOMATED (02/01/2025 2:21 PM GLUER MACHINE OPERATOR) WBC 9.12 4.5 - 11.0 x10'3/uL 02/01/2025 4:01 PM GLUER MACHINE OPERATOR [facility] RBC 5.00 4.20 - 5.40 x10'6/uL 02/01/2025 4:01 PM GLUER MACHINE OPERATOR [facility] HGB 13.2 12.0 - 16.0 G/DL 02/01/2025 4:01 PM [facility] HCT 39.4 38.0 - 48.0 % 02/01/2025 4:01 PM [facility] MCV 78.8(L) 81.0 - 99.0 FL 02/01/2025 4:01 PM [facility] MCH 26.4(L) 27.0 - 31.0 PG 02/01/2025 4:01 PM [facility] MCHC 33.5 32.0 - 36.0 G/DL 02/01/2025 4:01 PM [facility] RDW 16.0(H) 11.5 - 14.5 % 02/01/2025 4:01 PM [facility] PLT 245 130 - 400 x10'3/uL 02/01/2025 4:01 PM [facility] MPV 8.3(L) 9.3 - 12.2 FL 02/01/2025 4:01 PM [facility] DIFFERENTIAL TYPE AUTOMATED DIFFERENTIAL 02/01/2025 4:01 PM [facility] NEUTROPHILS % 69.5 % 02/01/2025 4:01 PM [facility] LYMPHOCYTES % 18.8 % 02/01/2025 4:01 PM [facility] MONOCYTES % 6.3 % 02/01/2025 4:01 PM [facility] EOSINOPHILS 3.6 % 02/01/2025 4:01 PM [facility] BASOPHILS 0.8 % 02/01/2025 4:01 PM [facility] IMMATURE GRANS % 1.0 % 02/02/20 4:01 PM [facility] ABS. NEUTROPHILS 6.35 1.80 - 7.70 x10'3/uL 02/01/2025 4:01 PM GLUER MACHINE OPERATOR [facility] ABS. LYMPHOCYTES 1.71 1.00 - 4.80 x10'3/uL 02/01/2025 4:01 PM GLUER MACHINE OPERATOR [facility] ABS. MONOCYTES 0.57 0.24 - 0.86 x10'3/uL 02/01/2025 4:01 PM GLUER MACHINE OPERATOR [facility] ABS. EOSINOPHILS 0.33 0.04 - 0.36 x10'3/uL 02/01/2025 4:01 PM GLUER MACHINE OPERATOR [facility] ABS. BASOPHILS 0.07 0.01 - 0.08 x10'3/uL 02/01/2025 4:01 PM GLUER MACHINE OPERATOR [facility] ABS. IMMATURE GRANULOCYTES 0.09 0.00 - 0.49 x10'3/uL 02/01/2025 4:01 PM GLUER MACHINE OPERATOR [facility] BLOOD VENOUS BLOOD SPECIMEN / Unknown 02/01/2025 2:21 PM GLUER MACHINE OPERATOR us Aleyda Roajs MD LABORATORY Final Result [facility] [address] [place] [address], [place] [phone] * (ABNORMAL) BASIC METABOLIC PANEL (02/01/2025 2:21 PM GLUER MACHINE OPERATOR) GLUCOSE 434(HH) 70 - 99 MG/DL 02/01/2025 3:17 PM GLUER MACHINE OPERATOR [facility] Comment: Critical Result(s) Called at: 15:16:42 on 02/01/2025 by: JASSI RODRIGUES to and read back by:MARK TRINIDAD BUN 8 7 - 18 MG/DL 02/01/2025 3:17 PM GLUER MACHINE OPERATOR [facility] CREATININE S/P/B 0.74 0.55 - 1.02 MG/DL 02/01/2025 3:17 PM GLUER MACHINE OPERATOR [facility] SODIUM S/P/B 135(L) 136 - 145 MMOL/L 02/01/2025 3:17 PM GLUER MACHINE OPERATOR [facility] POTASSIUM S/P/B 3.4(L) 3.5 - 5.1 MMOL/L 02/01/2025 3:17 PM GLUER MACHINE OPERATOR [facility] CHLORIDE S/P/B 103 97 - 115 MMOL/L 02/01/2025 3:17 PM [facility] CO2 27.3 21 - 32 MMOL/L 02/01/2025 3:17 PM [facility] CALCIUM S/P/B 8.6 8.5 - 10.1 MG/DL 02/01/2025 3:17 PM [facility] ANION GAP 4.7 2 - 10 MMOL/L 02/01/2025 3:17 PM [facility] BUN CREATININE RATIO 10.8 6 - 26 02/01/2025 3:17 PM [facility] GFR ESTIMATE >90 >90 ML/MIN/1.7 3 M2 02/01/2025 3:17 PM [facility] Comment: NOTE: eGFR is not calculated for patients <18 years of age or gender unknown. This is an estimated GFR calculation using the new CKD EPI creatinine equation without race and so does not require a correction factor for race. This estimated GFR should not be used for calculating drug doses. BLOOD VENOUS BLOOD SPECIMEN / Unknown 02/01/2025 2:21 PM GLUER MACHINE OPERATOR us Aleyda Rojas MD LABORATORY Final Result [facility] [address] [place] [address], [place] [phone] * (ABNORMAL) HEMOGLOBIN, GLYCATED (10/23/2024 5:46 AM CDT) HGB A1C 9.6(H) <5.7 % 10/23/2024 7:[address] [facility] Comment: ADA GUIDELINES 2010 5.7 TO 6.4% INCREASED RISK OF DIABETES > OR = 6.5% CONSISTENT WITH DIABETES ESTIMATED AVG GLUCOSE 229 mg/dL 10/23/2024 7:[address] [facility] 10/23/2024 5:46 AM CDT us Alejandro Acevedo MD LABORATORY Final Resul t [facility] [address] [place] [address], [place] [phone] * (ABNORMAL) LIPID PANEL (03/17/2022 7:04 AM GLUER MACHINE OPERATOR) CHOLESTEROL 149 <200 MG/DL 03/17/2022 7:56 AM GLUER MACHINE OPERATOR [facility] TRIGLYCERIDES 175(H) <150 MG/DL 03/17/2022 7:56 AM GLUER MACHINE OPERATOR [facility] HDL 34(L) >40.0 MG/DL 03/17/2022 7:56 AM [facility] LDL (CALCULATED) 80 <100 MG/DL 03/17/2022 7:56 AM GLUER MACHINE OPERATOR [facility] NON HDL CHOLESTEROL 115 <130 MG/DL 03/17/2022 7:56 AM GLUER MACHINE OPERATOR [facility] CHOL/HDL RATIO 4.4 0.0 - 4.5 03/17/2022 7:56 AM GLUER MACHINE OPERATOR [facility] VLDL CALCULATION 35 5 - 55 MG/DL 03/17/2022 7:56 AM GLUER MACHINE OPERATOR [facility] LIPID INTERPRETATION 03/17/2022 7:56 AM GLUER MACHINE OPERATOR [facility] Comment: NIH CONCENSUS REPORT RECOMMENDATIONS: ADULT CHILD LOW RISK: CHOLESTEROL <200 <170 TRIGLYCERIDE <150 --- HDL >=60 --- LDL <100 <110 BORDERLINE: CHOLESTEROL 200-239 170-199 TRIGLYCERIDE 150-199 --- HDL 40-59 --- LDL 100-159 110-129 HIGH RISK: CHOLESTEROL >=240 >=200 TRIGLYCERIDE >=200 --- HDL <40 --- LDL >=160 >=130 03/17/2022 7:04 AM GLUER MACHINE OPERATOR Inocencio Cates MD LABORATORY Final Result [facility] [address] [place] [address], from Last 3 Months or Most Recently Relevant to Health Maintenance Insurance [facility] Advance Directives * Full Code (Latest Code Status on File) Date Activated Date Inactivated Comments 10/22/2024 11:41 PM 10/24/2024 5:20 PM * Full Code Date Activated Date Inactivated Comments 03/16/2024 4:54 PM 03/19/2024 2:49 PM * Full Code Date Activated Date Inactivated Comments 06/18/2023 10:09 PM 06/19/2023 3:51 PM * Full Code Date Activated Date Inactivated Comments 05/29/2023 8:04 PM 06/02/2023 4:11 PM * Full Code Date Activated Date Inactivated Comments 04/23/2023 7:19 PM 04/24/2023 8:02 PM Care Teams [employer] Paraprofessional Relationship Specialty [place] [address] [place] [id number] PCP - General FAMILY PRACTICE 10/27/19
--- OUTSIDE RECORDS SUMMARY | 2025-02-10 22:13 | XMS_ITS | Encounter Summary ---
Author Organization [facility] Address [address] [place] [address] Care Team Providers Care Compensation Consulting Manager Name Role Phone Miguel A Kan MD Primary Care Provider [phone] Encounter Details Date Type Department Care Team (Latest Contact Info) Description 04/14/2003 Outpatient Historical [facility] N[place], [place] [address] [facility] [place] [address] LUMBAGO (Primary Dx) Social History Tobacco Use Types Packs/Day Years Used Date Smoking Tobacco: Never Assessed Comments Unknown Sex and Gender Information Value Date Recorded Sex Assigned at Not on file Legal Sex Female 4:18 AM FAGOT MAKER Gender Identity Not on file Sexual Orientation Not on file documented as of this encounter Plan of Treatment Not on file documented as of this encounter Visit Diagnoses Diagnosis Lumbago- Primary documented in this encounter Care Teams Compensation Consulting Manager Relationship Specialty Start Date End Date Miguel A Kan MD [address] [facility] [address] [place] [address] PCP - General Internal Medicine 04/26/11 05/02/16 documented as of this encounter
--- OUTSIDE RECORDS SUMMARY | 2025-02-10 22:13 | XMS_ITS | Encounter Summary ---
Author Organization [facility] Address [address] [place] [address] Care Team Providers Care Heat Curer Name Role Phone Miguel A Kan MD Primary Care Provider [phone] Encounter Details Date Type Department Care Team (Latest Contact Info) Description 05/12/2003 Outpatient Historical [facility], [address] [place] [address] [facility] [address] [place] [id number] EXCESSIVE MENSTRUATION (Primary Dx) Social History Tobacco Use Types Packs/Day Years Used Date Smoking Tobacco: Never Assessed Comments Unknown Sex and Gender Information Value Date Recorded Sex Assigned at Not on file Legal Sex Female 4:18 AM JV BASEBALL COACH Gender Identity Not on file Sexual Orientation Not on file documented as of this encounter Plan of Treatment Not on file documented as of this encounter Visit Diagnoses Diagnosis Excessive or frequent menstruation- Primary documented in this encounter Care Teams Heat Curer Relationship Specialty Start Date End Date Miguel A Kan MD [address] [facility] [address] [place] [address] PCP - General Internal Medicine 04/26/11 05/02/16 documented as of this encounter
--- OUTSIDE RECORDS SUMMARY | 2025-02-10 22:13 | XMS_ITS | Encounter Summary ---
Author Organization [facility] Address [address] [place] [address] Care Team Providers Care Screen Printing Cloth Spreader Name Role Phone Miguel A Kan MD Primary Care Provider [phone] Encounter Details Date Type Department Care Team (Latest Contact Info) Description 02/03/2006 Outpatient Historical [facility] Pilonidal Cyst without Mention of Abscess (Primary Dx) Social History Tobacco Use Types Packs/Day Years Used Date Smoking Tobacco: Never Assessed Comments Unknown Sex and Gender Information Value Date Recorded Sex Assigned at Not on file Legal Sex Female 4:18 AM DIRECTOR OF CLINICAL APPLICATIONS Gender Identity Not on file Sexual Orientation Not on file documented as of this encounter Plan of Treatment Not on file documented as of this encounter Procedures Procedure Name Priority Date/Time Associated Diagnosis Comments HEMOGLOBIN AND HEMATOCRIT Routine 02/03/2006 6:12 AM DIRECTOR OF CLINICAL APPLICATIONS POC , URINE Routine 02/03/2006 6:12 AM DIRECTOR OF CLINICAL APPLICATIONS documented in this encounter Results * POC , URINE (02/03/2006 6:12 AM DIRECTOR OF CLINICAL APPLICATIONS) HCG QUAL URINE Negative Negative INTER FACE SYSTEM SPECIFIC GRAVITY UA 1.030 1.001 - 1.035 INTERFACE SYSTEM 02/03/2006 6:12 AM DIRECTOR OF CLINICAL APPLICATIONS Zachary Phan POINT OF CARE TESTING Final Resu lt INTERFACE SYSTEM Refer to clinic/hospital department * (ABNORMAL) HEMOGLOBIN AND HEMATOCRIT (02/03/2006 6:12 AM DIRECTOR OF CLINICAL APPLICATIONS) HEMOGLOBIN 10.6(L) 11.8 - 14.8 g/dL INTERFACE SYSTEM HEMATOCRIT 35.0(L) 35.5 - 44.0 % INTERFACE SYSTEM 02/03/2006 6:12 AM DIRECTOR OF CLINICAL APPLICATIONS [facility] HEMATOLOGY ORDERABLES Final Resu lt Performing Organization Address City/[facility] Co de Phone Number INTERFACE SYSTEM Refer to clinic/hospital department documented in this encounter Visit Diagnoses Diagnosis Pilonidal cyst without mention of abscess- Primary documented in this encounter Care Teams Screen Printing Cloth Spreader Relationship Specialty Start Date End Date Miguel A Kan MD [address] [place] [id number] PCP - General Internal Medicine 04/26/11 05/02/16 documented as of this encounter
[2025-02-10 22:43] VITALS: BP 166/85; PULSE 105; RESP 19; O2SAT 98
[2025-02-10] MEDS: HYDROmorphone HCL INJ (*CRX) 1 MG/ML SYR 0.5 MG IV PUSH (23:30)
[2025-02-10] MEDS: ONDANSETRON INJ 4 MG/2 ML VIAL IV PUSH (23:31)
[2025-02-10 23:38] LABS: Hematocrit 40.5 % (37.0-47.0); Hemoglobin 13.9 g/dL (12.0-15.0); Immature Granulocyte Percent A 0.7 % (0-0.5); Lymphocytes Absolute Auto 2.49 K/mm3 (0.9-3.2); Mean Corpuscular HGB Conc 34.3 g/dl (32-36); Mean Corpuscular Hemoglobin 26.9 pg (26-34); Mean Corpuscular Volume 78.3 fl (80-100); Nucleated Red Blood Cells Absolute Auto 0.000 K/mm3 (0.0-0.012); Nucleated Red Blood Cells Perc 0.0 % (0.0-0.2); Platelet Count Result 263 k/mm3 (150-375); Red Blood Count 5.17 M/mm3 (4.2-5.4); White Blood Count 10.8 K/mm3 (4.5-10.0)
[2025-02-10 23:50] LABS: Alanine Aminotransferase 48 U/L (6-35); Albumin Level 3.8 g/dL (3.5-5.1); Alkaline Phosphatase 78 U/L (38-126); Anion Gap 9 mmol/L (4-12); Aspartate Amino Transferase 32 U/L (14-36); Bilirubin,Total 0.8 mg/dL (0.2-1.3); Blood Urea Nitrogen 6 mg/dL (7-17); CRP 2.4 mg/dL (<1.0); Calcium 8.8 mg/dL (8.4-10.2); Carbon Dioxide 25 mmol/L (22-30); Chloride 98 mmol/L (98-107); Estimated Glomerular Filt Rate > 60; Glucose 358 mg/dL (65-110); Potassium 3.4 mmol/L (3.4-5.0); Sodium 132 mmol/L (137-145); Total Protein 7.8 g/dL (6.3-8.2)
[2025-02-11] MEDS: ACETAMINOPHEN 500 MG TABLET 1000 MG PO (01:43)
[2025-02-11] MEDS: HYDROcodone/acetaminophen (*CRX) 5-325 MG TABLET 1 TAB PO (01:43)
[2025-02-11] MEDS: KETOROLAC (*BKC) 60 MG/2 ML VIAL IM (01:43)
[2025-02-11 01:56] VITALS: BP 152/89; PULSE 115; RESP 20; TEMP 36.6; O2SAT 97
--- NOTE | 2025-02-11 02:32 | ED_ITS ---
HPI - General Adult General Chief complaint: Skin/Abscess/Foreign Body Stated complaint: skin disorder flare up Time Seen by Provider: 02/10/25 21:55 History of Present Illness HPI narrative: 39-year-old female with a significant history of hidradenitis suppurativa presenting with a painful vulvar abscess. Patient states she finished a course of doxycycline and Bactrim today with minimal improvement. She is reporting continued pressure and pain as well as nausea. Denies fevers/chills, vomiting, vaginal complaints, urinary/bowel concerns. Related Data Allergies Allergy/AdvReac Type Severity Reaction Status Date / Time No Known Allergies Allergy Unknown Verified 02/10/25 19:16 Review of Systems 2 Review of Systems: All systems reviewed & are unremarkable except as noted in HPI and below PMFSH Past Medical History Medical History IUD (intrauterine device) in place Amenorrhea Non-insulin dependent diabetes mellitus Anxiety Hidradenitis suppurativa Polycystic ovarian syndrome Hypertension Surgical History Surgical History H/O skin graft Multiple cyst excision which required additional skin grafting due to wound. Family History Family History Father Hypertension Depression Heart disease Alcohol abuse Mother Diabetes mellitus Hypertension Depression Cerebrovascular accident Sibling Breast cancer Depression Grandparent Alcohol abuse Diabetes mellitus Hypertension Depression Heart disease Cerebrovascular accident Other Family history non-contributory Social History Social History Smoking status: Never smoker Alcohol intake: current Substance use: never Substance use type: does not use Exam 2 Narrative: GENERAL: Uncomfortable. HEAD: Normocephalic, atraumatic. EYES: PERRLA and EOMI. ENT: Nares clear, no rhinorrhea or epistaxis. Mucous membranes moist. Oropharynx without tonsillar hypertrophy exudate or other lesions. Bilateral TMs pearly nunes non-bulging NECK: Supple. No adenopathy or masses. No carotid bruits or JVD CHEST: Clear to auscultation. No respiratory distress. No wheezes rales or rhonchi HEART: Regular rate and rhythm. No murmur heard. Normal peripheral pulses. ABDOMEN: Soft, nontender, nondistended, normal active bowel sounds. Significant hidradenitis suppurativa that to the changes to abdomen and bilateral axilla. EXTREMITIES: Normal range of motion. No edema. SKIN: Warm, dry, no rash. NEURO: No focal deficits. Alert and oriented x3. PSYCH: Normal mood and affect PELVIC: Right-sided approx. 2cm x 2 cm vulvar abscess located on the right labia majora. Fluctuant, tender, warm, without significant surrounding erythema. Hidradenitis suppurativa changes are noted, including scarring, sinus tracts, and chronic inflammatory skin changes. Course Vital Signs Vital signs: Vital Signs Temperature 98.3 F 02/10/25 19:37 Pulse Rate 122 H 02/10/25 19:37 Respiratory Rate 17 02/10/25 19:37 Blood Pressure 170/121 H 02/10/25 19:37 Pulse Oximetry 98 02/10/25 19:37 Oxygen Delivery Room Air 02/10/25 19:37 Temperature 97.8 F 02/11/25 01:56 Pulse Rate 115 H 02/11/25 01:56 Respiratory Rate 20 02/11/25 01:56 Blood Pressure 152/89 H 02/11/25 01:56 Pulse Oximetry 97 02/11/25 01:56 Oxygen Delivery Room Air 02/10/25 19:37 Procedures Abscess I/D Labia majora: Date of Incision: 02/11/25 Time of Incision: 00:00 Side (if applicable): right Sedation/analgesia: other Local Anesthetic: lidocaine 1% Amount of anesthesia used (mL): 5 Technique: incised with #15 blade Amount of fluid expressed (mL): 8 Irrigation: Yes Packing used?: iodoform I&D Results: Pus and Blood Complications: pain and bleeding MDM MDM Narrative Medical decision making narrative: 39-year-old female with a significant history of hidradenitis suppurativa presenting with a painful vulvar abscess. Patient states she finished a course of doxycycline and Bactrim today with minimal improvement. She is reporting continued pressure and pain as well as nausea. Denies fevers/chills, vomiting, abdominal pain, vaginal complaints, urinary/bowel concerns. Upon my initial assessment patient appears uncomfortable but nontoxic with stable vitals. Labs demonstrate mild leukocytosis at 10.8 and CRP of 2.4. Other labs are within normal limits for the patient. Physical exam demonstrated significant genitalia changes consistent with hidradenitis suppurativa as well as changes to the abdomen and bilateral axilla. Administered Dilaudid and Zofran prior to procedure with improvement in patient's pain. Verbal consent was obtained prior to I&D procedure. The abscess was cleaned with alcohol wipes and Lidocaine 1% without epi was used for anesthesia. The abscess was incised with an 11 blade. There was return of approximately [4-5] mL of thick purulent sanguineous drainage. Curved hemostats were used to break up loculations. The wound was irrigated with normal saline and packed with Iodoform gauze with a 2 tail remaining. Following a sterile dressing was applied. Patient tolerated the procedure well. Signs of a yeast infection noticed during procedure with patient noting mild itchiness as well as a significant history of yeast infections after taking antibiotics. Plan to send patient with a short course of steroids, antibiotics, a short pain regimen, and fluconazole. Patient reported a most recent A1c of 7 and I discussed the need for close monitoring of her sugars while taking prednisone. Patient verbalized understanding. Treatment plan discussed with the patient. Patient agrees with discussion and after shared medical decision making agrees with plan of care. All questions were answered to the patient's satisfaction. Patient reports much improvement in pain and given pain medicine prior to d/c. The patient is appropriate for outpatient treatment and follow-up. Given reasons to return. Differential Diagnosis Differential Diagnosis: Differential diagnostic considerations for female urogenital issues include urinary tract infection, bacterial vaginosis, cervicitis, ovarian cyst, vaginitis, STI exposure, ovarian torsion, ectopic , cyst of Bartholin?s gland, cystitis, dysmenorrhea. Medical Records I have reviewed the following patient records and this information was taken into consideration when formulating the assessment and plan.: previous labs, previous ER visits, previous hospitalizations and previous clinic visits Lab Data MDM Lab Attestation statement: I personally reviewed the patient's lab results. 02/10/25 23:32 02/10/25 23:32 Labs: Lab Results 02/10/25 Range/Units 23:32 WBC 10.8 H (4.5-10.0) K/mm3 RBC 5.17 (4.2-5.4) M/mm3 Hgb 13.9 (12.0-15.0) g/dL Hct 40.5 (37.0-47.0) % MCV 78.3 L (80-100) fl MCH 26.9 (26-34) pg MCHC 34.3 (32-36) g/dl RDW 16.0 H (11.5-14.5) % Plt Count 263 (150-375) k/mm3 MPV 7.9 (7.4-10.4) fl Immature Gran % (Auto) 0.7 H (0-0.5) % Neut % (Auto) 65.9 (45.5-73.1) % Lymph % (Auto) 23.0 (18.3-44.2) % [place] % (Auto) 6.6 (2.6-8.5) % Eos % (Auto) 3.0 (0-4.4) % Baso % (Auto) 0.8 (0.2-1.2) % Lymph # (Auto) 2.49 (0.9-3.2) K/mm3 [place] # (Auto) 0.7 H (0.1-0.6) K/mm3 Eos # (Auto) 0.3 (0-0.3) K/mm3 Baso # (Auto) 0.1 (0.0-0.1) K/mm3 Abs Immat Gran (auto) 0.08 H (0.00-0.031) K/mm3 Absolute Neuts (auto) 7.1 H (1.3-6.7) K/mm3 Absolute Nucleated RBC 0.000 (0.0-0.012) K/mm3 Nucleated RBC % 0.0 (0.0-0.2) % Sodium 132 L (137-145) mmol/L Potassium 3.4 (3.4-5.0) mmol/L Chloride 98 (98-107) mmol/L Carbon Dioxide 25 (22-30) mmol/L Anion Gap 9 (4-12) mmol/L BUN 6 L (7-17) mg/dL Creatinine 0.52 L (0.7-1.0) mg/dL Estim Creat Clear Calc Not Reportable Estimated GFR > 60 (59 - ) Glucose 358 H (65-110) mg/dL Calcium 8.8 (8.4-10.2) mg/dL Total Bilirubin 0.8 (0.2-1.3) mg/dL AST 32 (14-36) U/L ALT 48 H (6-35) U/L Alkaline Phosphatase 78 (38-126) U/L C-Reactive Protein 2.4 H (<1.0) mg/dL Total Protein 7.8 (6.3-8.2) g/dL Albumin 3.8 (3.5-5.1) g/dL Discharge Plan Discharge Clinical Impression: Hidradenitis suppurativa, Abscess, Vaginal yeast infection Patient Disposition: Home Condition: Stable Instructions: Antibiotic Form, Abscess (ED), Hidradenitis Suppurativa (ED) Additional Instructions: Return if symptoms worsen or concerns: any increase in redness, swelling, pain or fever over 101 Take antibiotics as directed. Would recommend taking a probiotic alongside antibiotic. Clean wound with mild soapy water. Apply antibiotic ointment and clean dressing at least three times daily. Warm compresses 3 times a day for 30 minutes each. Monitor your blood sugars closely as discussed. Take all medications as prescribed. You have been prescribed an opioid analgesic. For more information visit [email or web address] and see the patient counseling guide Follow up with primary care in the next 2-3 days for re-evaluation and packing removal. Patient Language: Divehi Prescriptions: New clindamycin HCl [Cleocin HCl] 300 mg capsule 300 mg PO TID Qty: 30 0RF fluconazole 150 mg tablet 150 mg PO ONCE Qty: 1 0RF Rx Instructions: as a single dose oxycodone-acetaminophen [Percocet] 5-325 mg tablet 1 tablet PO Q6H PRN (Reason: pain) Qty: 12 0RF prednisone 50 mg tablet 50 mg PO DAILY Qty: 5 0RF No Action albuterol sulfate [Ventolin HFA] 90 mcg/actuation HFA aerosol inhaler 1 inh inhalation Q4H PRN (Reason: shortness of breath or wheezing) Qty: 6.7 0RF insulin glargine [Basaglar KwikPen U-100 Insulin] 100 unit/mL (3 mL) insulin pen 10 unit subcut QPM Qty: 15 0RF dapagliflozin propanediol [Farxiga] 10 mg tablet 10 mg PO DAILY Qty: 90 3RF Mounjaro 5 mg/0.5 mL pen injector 5 mg subcut WEEKLY Qty: 2 0RF ibuprofen 600 mg tablet 600 mg PO TID PRN (Reason: pain) Qty: 30 0RF acetaminophen 500 mg capsule 1,000 mg PO Q6H PRN (Reason: pain) Qty: 30 0RF oxycodone 5 mg tablet 5 mg PO Q8H PRN (Reason: pain) Qty: 7 0RF cephalexin 500 mg tablet 500 mg PO Q6H 5 Days Qty: 19 0RF Rx Instructions: received first dose in ED 7/ PM sulfamethoxazole-trimethoprim [Bactrim DS] 800-160 mg tablet 1 tablet PO Q12H 5 Days Qty: 9 0RF Rx Instructions: received first dose in ED 7/ PM lisinopril-hydrochlorothiazide 20-12.5 mg tablet 1 tablet PO DAILY Qty: 90 0RF (DME) OneTouch Ultra Test Strip See Rx Instructions .Route Qty: 100 0RF Rx Instructions: As directed (DME) blood-glucose meter [OneTouch Ultra2 Meter] Misc See Rx Instructions .Route Qty: 1 0RF Rx Instructions: As directed trazodone 50 mg tablet 50 mg PO QHS PRN (Reason: insomnia) Qty: 90 0RF Follow-up/Referrals: Sammy Dahl MD [Primary Care Provider, Family Practice]
== END 2025-02-11 01:58 | disposition home or self-care (01) ==
PROVIDERS: PCP Family Medicine
DX: L73.2 Hidradenitis suppurativa (principal); N76.4 Abscess of vulva; B37.89 Other sites of candidiasis; I10 Essential (primary) hypertension
CPT/HCPCS: 10061; 36415; 80053; 85025; 86140; 96372; 96374; 96375; 99284; A9270; J1171; J1885; J2405